=== PATIENT | male | born 1930 | race Hispanic/Latino ===

== ENCOUNTER 2017-03-09 00:31 | Emergency (ER) | payer MEDICARE, MEDICAID ==
--- NOTE | 2017-03-09 00:41 | C.PDOC ---
History Of Present Illness Pt found on his back on the floor at the custodial. Unknown time of fall. No obvious signs of trauma. Moves all extremities - HPI Time Seen by Provider: 03/09/17 00:41 Chief Complaint (Nursing): Trauma History Per: EMS History/Exam Limitations: no limitations Onset/Duration Of Symptoms: Hrs Location Of Injury: Posterior: Head Severity: None Pain Scale Rating Of: 0 Recent travel outside of the [place]: No Additional History Per: EMS, [facility] Past Medical History Reviewed: Historical Data, Nursing Documentation, Vital Signs Vital Signs: Last Vital Signs Temp 98.2 F 03/09/17 00:36 Pulse 96 H 03/09/17 00:36 Resp 20 03/09/17 00:36 BP 108/66 03/09/17 00:36 Pulse Ox 99 03/09/17 01:36 - Medical History PMH: Diverticulitis, HTN Denies: Alzheimer's Disease, Anemia, Anxiety, Arthritis, Asthma, Atrial Fibrillation, Bipolar Disorder, Bronchitis, CAD, Cardia Arrhythmia, CHF, COPD, Crohn's Disease, Dementia, Depression, Emphysema, Fractures, Gastritis, Gall Bladder Disease, HIV, Hypercholesterolemia, Hyperthyroidism, Hypothyroidism, Kidney Stones, Migraine, Mitral Valve Prolapse, Multiple Sclerosis, Osteoporosis , Pancreatitis, Paranoia, Parkinson's Disease, Peripheral Edema, Pneumonia, Post Traumatic Stress Disorder, Pulmonary Embolism, Chronic Kidney Disease, Rheumatoid Arthritis, Schizophrenia, Seizures, Sickle Cell Disease, Sexually Transmitted Disease, Sleep Apnea, TIA Surgical History: Denies: Appendectomy, CABG, Carotid Endarterectomy, Cholecystectomy, Coronary Stent, Pacemaker, Tonsillectomy - [facility] Procedures APPLICATION OF SPLINT (08/07/13) EXCISION OF TOE NAIL, EXTERNAL APPROACH (10/20/15) Family History: States: No Known Family Hx, Unknown Family Hx - Social History Hx Alcohol Use: No Hx Substance Use: No Review Of Systems Review Of Systems: ROS cannot be obtained secondary to pt's inabilty to answer questions. (hx of dementia, although he states that nothing hurts him) Physical Exam - Physical Exam Appears: Non-toxic, No Acute Distress Skin: Warm, Dry Head: Normacephalic, No Tenderness, No Swelling, No Abrasion Eye(s): bilateral: Normal Inspection Ear(s): Bilateral: Normal Oral Mucosa: Moist Neck: Trachea Midline, Supple Chest: Symmetrical Cardiovascular: Rhythm Regular Respiratory: No Rales, No Rhonchi, No Wheezing Gastrointestinal/Abdominal: Soft, No Tenderness, No Distention, No Guarding, No Rebound Back: No CVA Tenderness Extremity: No Tenderness, No Calf Tenderness Extremity: Bilateral: Atraumatic, Normal Color And Temperature, Normal ROM Pulses: Left Dorsalis Pedis: Normal, Right Dorsalis Pedis: Normal Neurological/Psych: Normal Speech Disoriented To: Place, Time Gait: Unable To Assess ED Course And Treatment O2 Sat by Pulse Oximetry: 99 Pulse Ox Interpretation: Normal Reevaluation Time: 02:17 Reassessment Condition: Improved Disposition Counseled Patient/Family Regarding: Studies Performed, Diagnosis, Need For Followup - Disposition Referrals: Carolann Reynolds MD [Staff Provider] - Disposition: HOME/ ROUTINE Disposition Time: 00:41 Condition: FAIR Instructions: Head Injury (ED) Forms: [facility] (Niuean) - Clinical Impression Clinical Impression: Minor head injury
--- NOTE | 2017-03-09 01:57 | CT ---
EXAM: CT Head Without Intravenous Contrast CLINICAL HISTORY: 86 years old, male; Pain; Headache; Patient HX: 01-07-16; Additional info: Fall TECHNIQUE: Axial computed tomography images of the head/brain without intravenous contrast. This CT exam was performed using one or more of the following dose reduction techniques: automated exposure control, adjustment of the mA and/or kV according to patient size, and/or use of iterative reconstruction technique. COMPARISON: No relevant prior studies available. FINDINGS: Brain: No acute intracranial hemorrhage. A large focus of decreased attenuation is identified within the left cerebral hemisphere, finding suggesting prior cerebral infarction, with ex vacuo enlargement of the posterior horn of the adjacent left lateral ventricle. Age-appropriate periventricular white matter disease. No edema. Ventricles: Otherwise age-appropriate ventriculomegaly. Bones: No acute displaced fracture. Sinuses: Unremarkable as visualized. No acute sinusitis. Mastoid air cells: Unremarkable as visualized. No mastoid effusion. IMPRESSION: No acute intracranial hemorrhage, or suspicious mass effect. Findings consistent with prior cerebral infarction, for which clinical correlation is needed.
[2017-03-09 04:32] VITALS: BP 128/70; PULSE 73; RESP 18; TEMP 97.4; O2SAT 100
== END 2017-03-09 04:21 | disposition home or self-care (01) ==
LOC: C.ER 00:31
DX: S09.90XA Unspecified injury of head, initial encounter (principal); W19.XXXA Unspecified fall, initial encounter; Y92.129 Unspecified place in nursing home as the place of occurrence of the external cause

== ENCOUNTER 2017-03-09 22:26 | Inpatient (IN) | payer MEDICARE, MEDICAID ==
[2017-03-09 23:14] LABS: BASO % 0.6 % (0.0-2.0); EOS # 0.1 K/uL (0.0-0.7); EOS % 1.4 % (0.0-4.0); HEMATOCRIT 34.9 % (35.0-51.0); LYMPH % 14.4 % (20.0-40.0); MEAN CELL VOLUME 81.4 fL (80.0-94.0); MEAN CORPUSCULAR HEMOGLOBIN 26.6 pg (27.0-31.0); MEAN CORPUSCULAR HGB CONC 32.7 g/dL (33.0-37.0); MEAN PLATELET VOLUME 10.6 fL (7.2-11.7); MONO # 0.6 K/uL (0.0-0.8); MONO % 8.9 % (0.0-10.0); RED CELL DISTRIBUTION WIDTH 15.9 % (11.5-14.5); WHITE BLOOD COUNT 6.7 K/uL (4.8-10.8)
[2017-03-09 23:22] LABS: POTASSIUM 4.6 mmol/L (3.6-5.2)
[2017-03-09 23:23] LABS: RBC URINE 26 /hpf (0-3); URINE BACTERIA MANY (<OCC); URINE BILIRUBIN NEGATIVE (NEGATIVE); URINE BLOOD 2+ (NEGATIVE); URINE COLOR Yellow (YELLOW); URINE GLUCOSE (UA) NORMAL (Normal); URINE KETONE NEGATIVE (NEGATIVE); URINE LEUKOCYTE ESTERASE 3+ Leu/uL (Negative); URINE PROTEIN 2+ mg/dL (NEGATIVE); URINE UROBILINOGEN NORMAL mg/dL (0.2-1.0); WBC CLUMPS MANY /hpf; WBC URINE 3931 /hpf (0-5)
[2017-03-09 23:25] LABS: ALB/GLOB RATIO 0.8 (1.0-2.1); BILIRUBIN,TOTAL 0.6 mg/dL (0.2-1.3); CALCIUM 9.8 mg/dl (8.6-10.4); TOTAL PROTEIN 7.6 g/dL (6.3-8.3)
--- NOTE | 2017-03-10 00:58 | C.PDOC ---
History Of Present Illness 86 year old male who was sent to the ER by alf for an elevated creatinine level. Patient was seen earlier today in the ER and discharged after having a fall. Denies physical complaints at this time. Chief Complaint (Nursing): Medical Clearance History Per: Patient History/Exam Limitations: no limitations Onset/Duration Of Symptoms: Hrs Current Symptoms Are (Timing): Still Present Recent travel outside of the [place]: No Past Medical History Reviewed: Historical Data, Nursing Documentation, Vital Signs Vital Signs: Last Vital Signs Temp 97 F L 03/10/17 06:08 Pulse 100 H 03/10/17 06:08 Resp 16 03/10/17 06:08 BP 123/68 03/10/17 06:08 Pulse Ox 96 03/10/17 06:51 - Medical History PMH: Diverticulitis, HTN Surgical History: No Surg Hx - [facility] Procedures APPLICATION OF SPLINT (08/07/13) EXCISION OF TOE NAIL, EXTERNAL APPROACH (10/20/15) Family History: States: Unknown Family Hx - Social History Hx Alcohol Use: No Hx Substance Use: No Review Of Systems Constitutional: Negative for: Fever, Chills Gastrointestinal: Negative for: Nausea, Vomiting, Diarrhea Physical Exam - Physical Exam Appears: Non-toxic, Other (Alert, Conscious) Skin: Normal Color, Warm, Dry Head: Atraumatic, Normacephalic Oral Mucosa: Dry Chest: Symmetrical, No Tenderness Cardiovascular: Rhythm Regular (Tachycardic), No Murmur Respiratory: Normal Breath Sounds, No Rales, No Rhonchi, No Wheezing Gastrointestinal/Abdominal: Soft, No Tenderness Neurological/Psych: Oriented x3, Normal Speech, Normal Cognition, Other (No focal deficits) ED Course And Treatment - Laboratory Results Result Diagrams: 03/09/17 23:11 03/09/17 23:11 O2 Sat by Pulse Oximetry: 96 (Room air) Pulse Ox Interpretation: Normal Progress Note: EKG, CXR, and urine culture ordered. IV fluids administered. Disposition Discussed With : Carolann Reynolds Doctor Will See Patient In The: Hospital Counseled Patient/Family Regarding: Diagnosis - Disposition Disposition: HOSPITALIZED Disposition Time: 02:25 Condition: STABLE - POA Present On Arrival: None - Clinical Impression Clinical Impression: Renal insufficiency, Urinary tract infection - Scribe Statement The provider has reviewed the documentation as recorded by the Scribsuzette Villagran All medical record entries made by the Khanh were at my direction and personally dictated by me. I have reviewed the chart and agree that the record accurately reflects my personal performance of the history, physical exam, medical decision making, and the department course for this patient. I have also personally directed, reviewed, and agree with the discharge instructions and disposition.
[2017-03-10] MEDS ORDERED: Ciprofloxacin 400mg/200ml D5W 400 MG/200 ML BAG IVPB STA (01:50)
[2017-03-10] MEDS ORDERED: Alum-Mag Hydrox-Simethicone Susp (30 mL) PO PRN (02:39)
[2017-03-10] MEDS ORDERED: Ciprofloxacin 400mg/200ml D5W 400 MG/200 ML BAG IVPB ONE (05:45)
--- NOTE | 2017-03-10 08:16 | RAD ---
HISTORY: dehydration COMPARISON: No prior. FINDINGS: LUNGS: No active pulmonary disease. Shallow lung volumes PLEURA: No significant pleural effusion identified, no pneumothorax apparent. CARDIOVASCULAR: Probable top-normal heart size given lung volume. Aortic knob atherosclerotic vascular calcification OSSEOUS STRUCTURES: No significant abnormalities. VISUALIZED UPPER ABDOMEN: Normal. OTHER FINDINGS: None. IMPRESSION: No active disease.
[2017-03-10] MEDS: (Novolin R) Insulin Human Regular 100 units/ml vial SC SCH ×4 (08:30→22:07)
[2017-03-10] MEDS ORDERED: COLCHICINE 0.6 MG PO SCH (10:00)
[2017-03-10] MEDS ORDERED: Ergocalciferol 50,000 Intl Units Cap PO SCH (10:15)
[2017-03-10] MEDS: Pantoprazole 40 mg EC Tab PO SCH (10:34)
[2017-03-10] MEDS: Sodium Chloride 0.9% 1,000 ML IV SCH ×3 (10:37→21:39)
[2017-03-10] MEDS: Lidocaine 5% Patch TD SCH (10:40)
[2017-03-10 11:35] LABS: BASO % 0.6 % (0.0-2.0); EOS % 0.7 % (0.0-4.0); HEMATOCRIT 33.8 % (35.0-51.0); LYMPH # 0.9 K/uL (1.0-4.3); LYMPH % 13.2 % (20.0-40.0); MEAN CELL VOLUME 81.6 fL (80.0-94.0); MEAN CORPUSCULAR HEMOGLOBIN 26.6 pg (27.0-31.0); MEAN CORPUSCULAR HGB CONC 32.6 g/dL (33.0-37.0); MEAN PLATELET VOLUME 10.8 fL (7.2-11.7); MONO # 0.5 K/uL (0.0-0.8); MONO % 7.3 % (0.0-10.0); NRBC % 0.1 % (0.0-2.0); RED CELL DISTRIBUTION WIDTH 15.8 % (11.5-14.5); WHITE BLOOD COUNT 6.6 K/uL (4.8-10.8)
[2017-03-10 11:50] LABS: ALB/GLOB RATIO 0.8 (1.0-2.1); BILIRUBIN,TOTAL 0.7 mg/dL (0.2-1.3); CALCIUM 9.8 mg/dl (8.6-10.4); POTASSIUM 4.6 mmol/L (3.6-5.2); TOTAL PROTEIN 7.6 g/dL (6.3-8.3)
[2017-03-10] MEDS: cefTRIAXone IV 1 gm in Dextros 50 ML IVPB SCH (13:31)
--- NOTE | 2017-03-10 21:08 | CP.PCM.HP ---
History of Present Illness - History of Present Illness History of Present Illness: An 86 yr old male with hx of CVA hemaorrhagic, wheel chair , bed bounnd, HTN , DM, CRF, GOUT ,Dementia , NH resident brought to ER after he had a trivial Fall and apperas to be confused at [place]. [place] ER labd found to be elevated CR[Base line is 1.7] , no odious bleeding\ trauma noted. CT head - WNL. UA- founfd to be positive for LE, wears diapers. pateint apperas to be less talkative, answers to questions at his base line for now. Present on Admission - Present on Admission Any Indicators Present on Admission: No Review of Systems - Hematologic/Lymphatic Additional comments: - Constitutional Constitutional: Snoring. absent: Anorexia, Chills, Frequent Falls, Headache, Night Sweats - EENT Eyes: absent: Photophobia Nose/Mouth/Throat: absent: Nasal Discharge, Post Nasal Drip, Hoarsness, Sore Throat - Cardiovascular Cardiovascular: absent: Chest Pain, Chest Pain at Rest, Dyspnea, Leg Edema, Palpitations, Paroxysmal Nocturnal Dyspnea - Respiratory Respiratory: absent: Cough, Dyspnea, Wheezing, Chest Congestion - Gastrointestinal Gastrointestinal: absent: Dyspepsia, Heartburn, Nausea, Vomiting - Genitourinary Genitourinary: no hx UTI. absent: Hematuria - Musculoskeletal Musculoskeletal: Arthralgias, Back Pain, Deformity, Stiffness - Neurological Neurological: absent: Focal Weakness, Headaches - Psychiatric Psychiatric: absent: Hallucinations - Endocrine Endocrine: Polyphagia. absent: Fatigue - Hematologic/Lymphatic Hematologic: absent: Lymphadenopathy Past Patient History - Past Medical History & Family History Past Medical History?: Yes - Past Social History Smoking Status: Former Smoker - CARDIAC Hx Cardiac Disorders: Yes Hx Hypertension: Yes - PULMONARY Hx Chronic Obstructive Pulmonary Disease (COPD): No - NEUROLOGICAL HX Cerebrovascular Accident: Yes - HEENT Hx HEENT Problems: No Hx Blind: No Hx Cataracts: No Hx Deafness: No Hx Difficulty Chewing: No Hx Epistaxis: No Hx Glaucoma: No Hx Macular Degeneration: No - RENAL Hx Chronic Kidney Disease: No Hx Kidney Stones: No - ENDOCRINE/METABOLIC Hx Hypothyroidism: No - HEMATOLOGICAL/ONCOLOGICAL Hx Blood Disorders: No Hx Anemia: No Hx Human Immunodeficiency Virus (HIV): No Hx Sickle Cell Disease: No - INTEGUMENTARY Hx Dermatological Problems: No Hx Basil Cell: No Hx Hernández: No Hx Cellulitis: No Hx Eczema: No Hx Melanoma: No Hx Psoriasis: No Hx Squamous Cell: No - MUSCULOSKELETAL/RHEUMATOLOGICAL Hx Arthritis: Yes (Gout) Hx Rheumatoid Arthritis: No - GASTROINTESTINAL Hx Gastrointestinal Disorders: Yes Hx Diverticulitis: Yes - GENITOURINARY/GYNECOLOGICAL Hx Genitourinary Disorders: No Hx Sexually Transmitted Disorders: No - PSYCHIATRIC Hx Psychophysiologic Disorder: No Hx Substance Use: No - SURGICAL HISTORY Hx Surgeries: Yes Hx Appendectomy: No Hx Carotid Endarterectomy: No Hx Cholecystectomy: No Hx Coronary Artery Bypass Graft: No Hx Coronary Stent: No Hx Tonsillectomy: No - ANESTHESIA Hx Anesthesia: Yes Hx Anesthesia Reactions: No Hx Malignant Hyperthermia: No Meds Home Medications: Home Medication List Medication Instructions Recorded Confirmed Type Acetaminophen [Tylenol 325mg tab] 650 mg PO Q4H PRN tab 03/16/17 Rx Allopurinol [Zyloprim] 100 mg PO DAILY tab 03/16/17 Rx Aluminum Hydroxide/Magnesium 30 ml PO Q4H PRN 03/16/17 Rx [Maalox Plus 30 ml] Ergocalciferol [Drisdol 50,000 1 cap PO QWK cap 03/16/17 Rx Intl Units Cap] Rosuvastatin Calcium [Crestor] 5 mg PO HS tab 03/16/17 Rx Tamsulosin [Flomax] 0.4 mg PO HS cap 03/16/17 Rx Allergies/Adverse Reactions: Allergies Allergy/AdvReac Type Severity Reaction Status Date / Time No Known Allergies Allergy Verified 03/09/17 22:36 Physical Exam - Additional Findings Additional findings: Head Exam Head Exam: ATRAUMATIC, NORMAL INSPECTION, NORMOCEPHALIC - Eye Exam Eye Exam: EOMI, PERRL - ENT Exam ENT Exam: Mucous Membranes Dry - Respiratory Exam Respiratory Exam: Clear to Auscultation Bilateral, Rales (b\l LL), NORMAL BREATHING PATTERN. absent: Accessory Muscle Use Additional comments: B\Lb\l LL ll - Cardiovascular Exam Cardiovascular Exam: Tachycardia, REGULAR RHYTHM, +S1, +S2, Systolic Murmur. absent: Gallop - GI/Abdominal Exam GI & Abdominal Exam: Normal Bowel Sounds, Soft. absent: Distended, Hernia, Mass , Tenderness - Neurological Exam Neurological exam: Alert, Altered, CN II-XII Intact Additional comments: wheel chair bound AAO-1-2 at base line - Psychiatric Exam Psychiatric exam: Normal Affect, Normal Mood - Skin Skin Exam: Dry, Intact, Petechiae - Additional Findings b\l foot drop f Results - Vital Signs Recent Vital Signs: Last Vital Signs Temp 97.2 F L 03/10/17 16:01 Pulse 110 H 03/10/17 16:01 Resp 20 03/10/17 16:01 BP 130/80 03/10/17 16:01 Pulse Ox 96 03/10/17 16:01 - Labs Result Diagrams: 03/14/17 11:07 03/16/17 08:01 Labs: Laboratory Results - last 24 hr 03/10/17 03/10/17 03/10/17 11:27 11:27 11:27 WBC 6.6 RBC 4.14 L Hgb 11.0 L Hct 33.8 L MCV 81.6 MCH 26.6 L MCHC 32.6 L RDW 15.8 H Plt Count 202 MPV 10.8 Neut % (Auto) 78.2 H Lymph % (Auto) 13.2 L [place] % (Auto) 7.3 Eos % (Auto) 0.7 Baso % (Auto) 0.6 Neut # 5.1 Lymph # 0.9 L [place] # 0.5 Eos # 0.0 Baso # 0.0 Sodium 143 Potassium 4.6 Chloride 105 Carbon Dioxide 22 Anion Gap 21 H BUN 62 H Creatinine 2.9 H Est GFR ( Amer) 25 Est GFR (Non-Af Amer) 21 POC Glucose (mg/dL) Random Glucose 149 H Hemoglobin A1c 5.8 Calcium 9.8 Total Bilirubin 0.7 AST 13 L ALT 22 Alkaline Phosphatase 89 Total Protein 7.6 Albumin 3.4 L Globulin 4.2 H Albumin/Globulin Ratio 0.8 L 03/10/17 03/10/17 11:54 17:05 WBC RBC Hgb Hct MCV MCH MCHC RDW Plt Count MPV Neut % (Auto) Lymph % (Auto) [place] % (Auto) Eos % (Auto) Baso % (Auto) Neut # Lymph # [place] # Eos # Baso # Sodium Potassium Chloride Carbon Dioxide Anion Gap BUN Creatinine Est GFR ( Amer) Est GFR (Non-Af Amer) POC Glucose (mg/dL) 161 H 87 Random Glucose Hemoglobin A1c Calcium Total Bilirubin AST ALT Alkaline Phosphatase Total Protein Albumin Globulin Albumin/Globulin Ratio - EKG Data EKG Interpreted by: Myself EKG shows normal: Sinus rhythm Rate: Tachycardia - Imaging and Cardiology Chest x-ray Status: Report reviewed by me Assessment & Plan (1) ARF (acute renal failure) Status: Acute Comment: ivf, likly dehydration. prerenal cause. mnoitor cr. i\o. refusing benitez (2) UTI (urinary tract infection) Status: Acute Comment: iv abx. urine c\s (3) HTN (hypertension) Status: Chronic Comment: moniot BP. stable for now. resume meds (4) Type 2 diabetes mellitus without complications Status: Chronic Comment: accuhecks ACHS. SLIDING SCALE. HBA1C. resume meds (5) Gout Status: Chronic Comment: stable for now Decision To Admit - Pt Status Changed To: Hospital Disposition Of: Inpatient - Admit Certification Admit to Inpatient:: After my assessment, the patient will require hospitalization for at least two midnights. This is because of the severity of symptoms shown, intensity of services needed, and/or the medical risk in this patient being treated as an outpatient. - InPatient: Physician Admission Certification:: as above - . Bed Request Type: Telemetry Admitting Physician: Carolann Reynolds
[2017-03-11] MEDS: Sodium Chloride 0.9% 1,000 ML IV SCH ×5 (03:13→22:55)
[2017-03-11] MEDS: (Novolin R) Insulin Human Regular 100 units/ml vial SC SCH ×4 (07:30→21:47)
[2017-03-11] MEDS: Pantoprazole 40 mg EC Tab PO SCH (09:48)
[2017-03-11] MEDS: Lidocaine 5% Patch TD SCH (09:50)
[2017-03-11 11:02] LABS: BASO % 0.6 % (0.0-2.0); EOS % 0.5 % (0.0-4.0); LYMPH # 0.5 K/uL (1.0-4.3); LYMPH % 9.2 % (20.0-40.0); MEAN CELL VOLUME 80.9 fL (80.0-94.0); MEAN CORPUSCULAR HEMOGLOBIN 26.5 pg (27.0-31.0); MEAN CORPUSCULAR HGB CONC 32.7 g/dL (33.0-37.0); MEAN PLATELET VOLUME 10.4 fL (7.2-11.7); MONO # 0.5 K/uL (0.0-0.8); MONO % 8.9 % (0.0-10.0); PLATELET COUNT 180 K/uL (130-400); RED CELL DISTRIBUTION WIDTH 15.4 % (11.5-14.5); WHITE BLOOD COUNT 5.7 K/uL (4.8-10.8)
[2017-03-11 11:11] LABS: CALCIUM 8.9 mg/dl (8.6-10.4)
[2017-03-11 11:31] LABS: NEUTROPHIL 77 % (50-75); TOTAL CELLS COUNTED 100
[2017-03-11] MEDS: cefTRIAXone IV 1 gm in Dextros 50 ML IVPB SCH (12:38)
--- NOTE | 2017-03-11 22:03 | CP.PCM.PN ---
Subjective - Date & Time of Evaluation Date of Evaluation: 03/11/17 Time of Evaluation: 09:00 - Subjective Subjective: urine c\s positive for gm positive cocci . looks little better,denies any active complaints, still BUN-high, cr-2.6., hba1c -5.8 on januvia as per staff - wet diapers , no sig urine out put, patient looks comfortable on ivf Objective - Vital Signs/Intake and Output Vital Signs (last 24 hours): Temp Pulse Resp BP Pulse Ox 99.4 F 94 H 20 125/72 100 03/11/17 15:49 03/11/17 15:49 03/11/17 15:49 03/11/17 15:49 03/11/17 15:49 Intake and Output: 03/11/17 03/12/17 18:59 06:59 Intake Total 1710 Balance 1710 - Medications Medications: Current Medications Acetaminophen (Tylenol 325mg Tab) 650 mg PO Q4H PRN PRN Reason: Pain, Mild (1-3) Al Hydrox/Mg Hydrox/Simethicone (Maalox Plus 30 Ml) 30 ml PO Q4H PRN PRN Reason: Indigestion / Heartburn Allopurinol (Zyloprim) 100 mg PO DAILY [facility] Last Admin: 03/11/17 09:48 Dose: 100 mg Colchicine (Colocrys) 0.3 mg PO DAILY PRN PRN Reason: GOUT PAIN Ergocalciferol (Drisdol 50,000 Intl Units Cap) 1 cap PO QWK [facility] Last Admin: 03/10/17 10:34 Dose: 1 cap Heparin Sodium (Porcine) (Heparin) 5,000 units SC Q8 [facility] Last Admin: 03/11/17 21:27 Dose: Not Given Sodium Chloride (Sodium Chloride 0.9%) 1,000 mls @ 100 mls/hr IV .Q10H [facility] Last Admin: 03/11/17 19:25 Dose: 100 mls/hr Ceftriaxone Sodium (Rocephin Iv 1 Gm Duplex) 50 mls @ 100 mls/hr IVPB Q24H [facility] Last Admin: 03/11/17 12:38 Dose: 100 mls/hr Insulin Human Regular (Novolin R) 0 unit SC ACHS [facility] PRN Reason: Protocol Last Admin: 03/11/17 21:47 Dose: Not Given Lidocaine (Lidoderm) 1 ea TD DAILY [facility] Last Admin: 03/11/17 09:50 Dose: Not Given Pantoprazole Sodium (Protonix Ec Tab) 40 mg PO DAILY [facility] Last Admin: 03/11/17 09:48 Dose: 40 mg Rosuvastatin Calcium (Crestor) 5 mg PO HS [facility] Last Admin: 03/11/17 21:26 Dose: 5 mg Sitagliptin Phosphate (Januvia) 25 mg PO DAILY [facility] Last Admin: 03/11/17 09:48 Dose: 25 mg Tamsulosin HCl (Flomax) 0.4 mg PO HS [facility] Last Admin: 03/11/17 21:26 Dose: 0.4 mg - Labs Labs: 03/11/17 10:50 03/11/17 10:50 - Additional Findings Additional findings: Head Exam Head Exam: ATRAUMATIC, NORMAL INSPECTION, NORMOCEPHALIC - Eye Exam Eye Exam: EOMI, PERRL - ENT Exam ENT Exam: Mucous Membranes Dry - Respiratory Exam Respiratory Exam: Clear to Auscultation Bilateral, Rales (b\l LL), NORMAL BREATHING PATTERN. absent: Accessory Muscle Use Additional comments: B\Lb\l LL ll - Cardiovascular Exam Cardiovascular Exam: Tachycardia, REGULAR RHYTHM, +S1, +S2, Systolic Murmur. absent: Gallop - GI/Abdominal Exam GI & Abdominal Exam: Normal Bowel Sounds, Soft. absent: Distended, Hernia, Mass , Tenderness - Neurological Exam Neurological exam: Alert, Altered, CN II-XII Intact Additional comments: wheel chair bound AAO-1-2 at base line - Psychiatric Exam Psychiatric exam: Normal Affect, Normal Mood - Skin Skin Exam: Dry, Intact, Petechiae - Additional Findings Additional findings: Assessment and Plan (1) ARF (acute renal failure) Status: Acute (2) Altered mental status Status: Acute (3) Dehydration Status: Acute (4) UTI (urinary tract infection) Status: Acute - Assessment and Plan (Free Text) Plan: I\O chart benitez ivf awaiting for c\s stable vitals will get abdominal u\s
[2017-03-12] MEDS: Sodium Chloride 0.9% 1,000 ML IV SCH ×2 (06:16→17:31)
[2017-03-12] MEDS: (Novolin R) Insulin Human Regular 100 units/ml vial SC SCH ×4 (07:06→21:29)
[2017-03-12 08:08] VITALS: RESP 20
[2017-03-12] MEDS: Pantoprazole 40 mg EC Tab PO SCH (09:18)
[2017-03-12] MEDS: Lidocaine 5% Patch TD SCH (09:19)
[2017-03-12] MEDS: cefTRIAXone IV 1 gm in Dextros 50 ML IVPB SCH (13:24)
[2017-03-13] MEDS: Sodium Chloride 0.9% 1,000 ML IV SCH ×2 (04:00→13:40)
[2017-03-13] MEDS: (Novolin R) Insulin Human Regular 100 units/ml vial SC SCH ×4 (08:00→21:46)
[2017-03-13] MEDS: Pantoprazole 40 mg EC Tab PO SCH (11:15)
[2017-03-13] MEDS: Lidocaine 5% Patch TD SCH (11:16)
[2017-03-13] MEDS: cefTRIAXone IV 1 gm in Dextros 50 ML IVPB SCH (13:38)
--- NOTE | 2017-03-13 14:23 | CP.PCM.CON ---
History of Present Illness - History of Present Illness History of Present Illness: 86 year old male who was sent to the ER by halfway for an elevated creatinine level. Patient was seen earlier today in the ER and discharged after having a fall. Denies physical complaints at this time.\ referred for id eval of uti - +MRSA, Morganella in urine - Medical History PMH: Diverticulitis, HTN Surgical History: No Surg Hx - [facility] Procedures APPLICATION OF SPLINT (08/07/13) EXCISION OF TOE NAIL, EXTERNAL APPROACH (10/20/15) Review of Systems - Review of Systems Systems not reviewed;Unavailable: Altered Mental Status - Constitutional Constitutional: As Per HPI - EENT Eyes: absent: As Per HPI, Blind Spots, Blurred Vision, Change in Vision, Decreased Night Vision, Diplopia, Discharge, Dry Eye, Exophthalmos, Floaters, Irritation, Itchy Eyes, Loss of Peripheral Vision, Pain, Photophobia, Requires Corrective Lenses, Sees Flashes, Spots in Vision, Tunnel Vision, Other Visual Disturbances, Loss of Vision, Other Ears: absent: As Per HPI, Decreased Hearing, Ear Discharge, Ear Pain, Tinnitus, Abnormal Hearing, Disequilibrium, Dizziness, Other Nose/Mouth/Throat: absent: As Per HPI, Epistaxis, Nasal Congestion, Nasal Discharge, Nasal Obstruction, Nasal Trauma, Nose Pain, Post Nasal Drip, Sinus Pain, Sinus Pressure, Bleeding Gums, Change in Voice, Dental Pain, Dry Mouth, Dysphagia, Halitosis, Hoarsness, Lip Swelling, Mouth Lesions, Mouth Pain, Odynophagia, Sore Throat, Throat Swelling, Tongue Swelling, Facial Pain, Neck Pain, Neck Mass, Other - Gastrointestinal Gastrointestinal: absent: As Per HPI, Abdominal Pain, Belching, Bloating, Change in Bowel Habits, Change in Stool Character, Coffee Ground Emesis, Constipation, Cramping, Diarrhea, Dyspepsia, Dysphagia, Early Satiety, Excessive Flatus, Fecal Incontinence, Heartburn, Hematemesis, Hematochezia, Loose Stools, Melena, Nausea, Odynophagia, Temesmus, Vomiting, Other - Genitourinary Genitourinary: absent: As Per HPI, Change in Urinary Stream, Difficulty Urinating, Dysuria, Flank Pain, Hematuria, Pyuria, Nocturia, Urinary Incontinence, Urinary Frequency, Urinary Hesitance, Urinary Urgency, Voiding Freq/Small Amts, Freq UTI, Hx Renal/Bladder Calculi, Hx /Renal Surgery, Bladder Distension, Other - Musculoskeletal Musculoskeletal: absent: As Per HPI, Abnormal Gait, Arthralgias, Atrophy, Back Pain, Deformity, Joint Swelling, Limited Range of Motion, Loss of Height, Muscle Cramps, Muscle Weakness, Myalgias, Neck Pain, Numbness, Radiating Pain into Limb, Stiffness, Tingling, Other - Integumentary Integumentary: absent: As Per HPI, Acne, Alopecia, Bleeding Lesions, Change in Hair, Change in Nails, Change in Pigmentation, Changing Lesions, Dry Skin, Erythema, Furuncle, Hirsutism, Lesions, New Lesions, Non-Healing Lesions, Photosensitivity, Pruritus, Rash, Skin Pain, Skin Ulcer, Sores, Striae, Swelling , Unusual Bruising, Wounds, Jaundice, Other - Neurological Neurological: absent: As Per HPI, Abnormal Gait, Abnormal Hearing, Abnormal Movements, Abnormal Speech, Behavioral Changes, Burning Sensations, Confusion, Convulsions, Disequilibrium, Dizziness, Numbness, Focal Weakness, Frequent Falls , Headaches, Lack of Coordination, Loss of Vision, Memory Loss, Paresthesias, Radicular Pain, Restless Legs, Sensory Deficit, Syncope, Tingling, Tremor, Vertigo, Weakness, Other Visual Disturbances, Other - Psychiatric Psychiatric: absent: As Per HPI, Abnormal Sleep Pattern, Anhedonia, Anxiety, Auditory Hallucinations, Behavioral Changes, Change in Appetite, Change in Libido, Confusion, Depression, Difficulty Concentrating, Hallucinations, Homicidal Ideation, Hopelessness, Irritability, Memory Loss, Mood Swings, Panic Attacks, Paranoia, Suicidal Ideation, Visual Hallucinations, Tactile Hallucinations, Other - Endocrine Endocrine: absent: As Per HPI, Change in Body Appearance, Change in Libido, Cold Intolorance, Deepening of Voice, Excessive Sweating, Fatigue, Flushing, Heat Intolorance, Increase in Ring/Shoe/Hat Size, Palpitations, Polydipsia, Polyphagia, Polyuria, Other - Hematologic/Lymphatic Hematologic: absent: As Per HPI, Easy Bleeding, Easy Bruising, Lymphadenopathy, Other Past Patient History - Past Medical History & Family History Past Medical History?: Yes - Past Social History Smoking Status: Former Smoker - CARDIAC Hx Cardiac Disorders: Yes Hx Hypertension: Yes - PULMONARY Hx Chronic Obstructive Pulmonary Disease (COPD): No - NEUROLOGICAL HX Cerebrovascular Accident: Yes - HEENT Hx HEENT Problems: No Hx Blind: No Hx Cataracts: No Hx Deafness: No Hx Difficulty Chewing: No Hx Epistaxis: No Hx Glaucoma: No Hx Macular Degeneration: No - RENAL Hx Chronic Kidney Disease: No Hx Kidney Stones: No - ENDOCRINE/METABOLIC Hx Hypothyroidism: No - HEMATOLOGICAL/ONCOLOGICAL Hx Blood Disorders: No Hx Anemia: No Hx Human Immunodeficiency Virus (HIV): No Hx Sickle Cell Disease: No - INTEGUMENTARY Hx Dermatological Problems: No Hx Basil Cell: No Hx Hernández: No Hx Cellulitis: No Hx Eczema: No Hx Melanoma: No Hx Psoriasis: No Hx Squamous Cell: No - MUSCULOSKELETAL/RHEUMATOLOGICAL Hx Arthritis: Yes (Gout) Hx Rheumatoid Arthritis: No - GASTROINTESTINAL Hx Gastrointestinal Disorders: Yes Hx Diverticulitis: Yes - GENITOURINARY/GYNECOLOGICAL Hx Genitourinary Disorders: No Hx Sexually Transmitted Disorders: No - PSYCHIATRIC Hx Psychophysiologic Disorder: No Hx Substance Use: No - SURGICAL HISTORY Hx Surgeries: Yes Hx Appendectomy: No Hx Carotid Endarterectomy: No Hx Cholecystectomy: No Hx Coronary Artery Bypass Graft: No Hx Coronary Stent: No Hx Tonsillectomy: No - ANESTHESIA Hx Anesthesia: Yes Hx Anesthesia Reactions: No Hx Malignant Hyperthermia: No Meds Allergies/Adverse Reactions: Allergies Allergy/AdvReac Type Severity Reaction Status Date / Time No Known Allergies Allergy Verified 03/09/17 22:36 - Medications Medications: Current Medications Acetaminophen (Tylenol 325mg Tab) 650 mg PO Q4H PRN PRN Reason: Pain, Mild (1-3) Al Hydrox/Mg Hydrox/Simethicone (Maalox Plus 30 Ml) 30 ml PO Q4H PRN PRN Reason: Indigestion / Heartburn Allopurinol (Zyloprim) 100 mg PO DAILY [facility] Last Admin: 03/13/17 11:15 Dose: 100 mg Colchicine (Colocrys) 0.3 mg PO DAILY PRN PRN Reason: GOUT PAIN Ergocalciferol (Drisdol 50,000 Intl Units Cap) 1 cap PO QWK [facility] Last Admin: 03/10/17 10:34 Dose: 1 cap Ceftriaxone Sodium (Rocephin Iv 1 Gm Duplex) 50 mls @ 100 mls/hr IVPB Q24H [facility] Last Admin: 03/13/17 13:38 Dose: 100 mls/hr Sodium Chloride (Sodium Chloride 0.9%) 1,000 mls @ 100 mls/hr IV .Q10H [facility] Last Admin: 03/13/17 13:40 Dose: 100 mls/hr Vancomycin HCl 1 gm/ Sodium (Chloride) 250 mls @ 166.7 mls/hr IVPB Q24H [facility] Last Admin: 03/12/17 16:41 Dose: 166.7 mls/hr Insulin Human Regular (Novolin R) 0 unit SC ACHS [facility] PRN Reason: Protocol Last Admin: 03/13/17 13:09 Dose: Not Given Lidocaine (Lidoderm) 1 ea TD DAILY [facility] Last Admin: 03/13/17 11:16 Dose: 1 ea Pantoprazole Sodium (Protonix Ec Tab) 40 mg PO DAILY [facility] Last Admin: 03/13/17 11:15 Dose: 40 mg Rosuvastatin Calcium (Crestor) 5 mg PO HS [facility] Last Admin: 03/12/17 22:03 Dose: Not Given Tamsulosin HCl (Flomax) 0.4 mg PO HS [facility] Last Admin: 03/12/17 22:03 Dose: Not Given Physical Exam - Constitutional Appears: Non-toxic, Cachectic, Chronically Ill - Head Exam Head Exam: NORMOCEPHALIC - Eye Exam Eye Exam: Normal appearance, PERRL. absent: Scleral icterus - ENT Exam ENT Exam: Mucous Membranes Dry, Normal External Ear Exam, Normal Oropharynx - Neck Exam Neck exam: Negative for: Lymphadenopathy, Thyromegaly - Respiratory Exam Respiratory Exam: Decreased Breath Sounds, Rhonchi - Cardiovascular Exam Cardiovascular Exam: REGULAR RHYTHM - GI/Abdominal Exam GI & Abdominal Exam: Diminished Bowel Sounds, Soft. absent: Tenderness - Rectal Exam Rectal Exam: Deferred - Exam Exam: NORMAL INSPECTION - Extremities Exam Extremities exam: Negative for: calf tenderness, pedal edema - Back Exam Back exam: absent: CVA tenderness (L), CVA tenderness (R) - Neurological Exam Neurological exam: Alert, CN II-XII Intact, Oriented x3, Reflexes Normal - Psychiatric Exam Psychiatric exam: Normal Mood - Skin Skin Exam: Dry, Intact Results - Vital Signs Recent Vital Signs: Last Vital Signs Temp 98 F 03/13/17 08:42 Pulse 81 03/13/17 08:42 Resp 20 03/13/17 08:42 BP 123/56 L 03/13/17 08:42 Pulse Ox 96 03/13/17 08:42 - Labs Result Diagrams: 03/11/17 10:50 03/11/17 10:50 Labs: Laboratory Results - last 24 hr 03/13/17 03/13/17 08:37 11:21 POC Glucose (mg/dL) 93 105 Assessment & Plan (1) Renal insufficiency Status: Acute (2) UTI (urinary tract infection) Status: Acute (3) ARF (acute renal failure) Status: Acute (4) Acute pain of lower extremity Status: Acute (5) Altered mental status Status: Acute (6) Elevated PSA Status: Acute - Assessment and Plan (Free Text) Assessment: cont iv rx check psa consider eval
--- NOTE | 2017-03-13 21:38 | CP.PCM.PN ---
Subjective - Date & Time of Evaluation Date of Evaluation: 03/12/17 Time of Evaluation: 14:00 - Subjective Subjective: urine grew MRSA, stable vitals. no new labs refused benitez family at bed side Objective - Vital Signs/Intake and Output Vital Signs (last 24 hours): Temp Pulse Resp BP Pulse Ox 98.7 F 79 20 137/83 97 03/13/17 16:00 03/13/17 16:00 03/13/17 16:00 03/13/17 16:00 03/13/17 16:00 Intake and Output: 03/13/17 03/14/17 18:59 06:59 Intake Total 1300 Balance 1300 - Medications Medications: Current Medications Acetaminophen (Tylenol 325mg Tab) 650 mg PO Q4H PRN PRN Reason: Pain, Mild (1-3) Al Hydrox/Mg Hydrox/Simethicone (Maalox Plus 30 Ml) 30 ml PO Q4H PRN PRN Reason: Indigestion / Heartburn Allopurinol (Zyloprim) 100 mg PO DAILY [facility] Last Admin: 03/13/17 11:15 Dose: 100 mg Colchicine (Colocrys) 0.3 mg PO DAILY PRN PRN Reason: GOUT PAIN Ergocalciferol (Drisdol 50,000 Intl Units Cap) 1 cap PO QWK [facility] Last Admin: 03/10/17 10:34 Dose: 1 cap Ceftriaxone Sodium (Rocephin Iv 1 Gm Duplex) 50 mls @ 100 mls/hr IVPB Q24H [facility] Last Admin: 03/13/17 13:38 Dose: 100 mls/hr Sodium Chloride (Sodium Chloride 0.9%) 1,000 mls @ 100 mls/hr IV .Q10H [facility] Last Admin: 03/13/17 13:40 Dose: 100 mls/hr Vancomycin HCl 1 gm/ Sodium (Chloride) 250 mls @ 166.7 mls/hr IVPB Q24H [facility] Last Admin: 03/13/17 16:32 Dose: 166.7 mls/hr Insulin Human Regular (Novolin R) 0 unit SC ACHS [facility] PRN Reason: Protocol Last Admin: 03/13/17 15:20 Dose: Not Given Lidocaine (Lidoderm) 1 ea TD DAILY [facility] Last Admin: 03/13/17 11:16 Dose: 1 ea Pantoprazole Sodium (Protonix Ec Tab) 40 mg PO DAILY [facility] Last Admin: 03/13/17 11:15 Dose: 40 mg Rosuvastatin Calcium (Crestor) 5 mg PO HS [facility] Last Admin: 03/12/17 22:03 Dose: Not Given Tamsulosin HCl (Flomax) 0.4 mg PO HS [facility] Last Admin: 03/12/17 22:03 Dose: Not Given - Labs Labs: 03/11/17 10:50 03/11/17 10:50 - Additional Findings Additional findings: Head Exam Head Exam: ATRAUMATIC, NORMAL INSPECTION, NORMOCEPHALIC - Eye Exam Eye Exam: EOMI, PERRL - ENT Exam ENT Exam: Mucous Membranes Dry - Respiratory Exam Respiratory Exam: Clear to Auscultation Bilateral, Rales (b\l LL), NORMAL BREATHING PATTERN. absent: Accessory Muscle Use Additional comments: B\L LL - Cardiovascular Exam Cardiovascular Exam: Tachycardia, REGULAR RHYTHM, +S1, +S2, Systolic Murmur. absent: Gallop - GI/Abdominal Exam GI & Abdominal Exam: Normal Bowel Sounds, Soft. absent: Distended, Hernia, Mass , Tenderness - Neurological Exam Neurological exam: Alert, Altered, CN II-XII Intact Additional comments: wheel chair bound AAO-1-2 at base line - Psychiatric Exam Psychiatric exam: Normal Affect, Normal Mood - Skin Skin Exam: Dry, Intact, Petechiae - Assessment and Plan (1) UTI (urinary tract infection) Status: Acute (2) ARF (acute renal failure) Status: Acute (3) HTN (hypertension) Status: Chronic (4) Type 2 diabetes mellitus without complications Status: Chronic - Assessment and Plan (Free Text) Plan: labs u\s abdomen ID consult continue IVF monitor for wet diapers contact isolation
--- NOTE | 2017-03-13 21:42 | CP.PCM.PN ---
Subjective - Date & Time of Evaluation Date of Evaluation: 03/13/17 Time of Evaluation: 08:00 - Subjective Subjective: abdominal u\s- bladder distention with urine, unable to void, b\l hydronephrosis with right ? kidney starnding on vancomycin ivf ID on board sleeping mostly little combative sensitive when touch abdomen, shouting Objective - Vital Signs/Intake and Output Vital Signs (last 24 hours): Temp Pulse Resp BP Pulse Ox 98.7 F 79 20 137/83 97 03/13/17 16:00 03/13/17 16:00 03/13/17 16:00 03/13/17 16:00 03/13/17 16:00 Intake and Output: 03/13/17 03/14/17 18:59 06:59 Intake Total 1300 Balance 1300 - Medications Medications: Current Medications Acetaminophen (Tylenol 325mg Tab) 650 mg PO Q4H PRN PRN Reason: Pain, Mild (1-3) Al Hydrox/Mg Hydrox/Simethicone (Maalox Plus 30 Ml) 30 ml PO Q4H PRN PRN Reason: Indigestion / Heartburn Allopurinol (Zyloprim) 100 mg PO DAILY [facility] Last Admin: 03/13/17 11:15 Dose: 100 mg Colchicine (Colocrys) 0.3 mg PO DAILY PRN PRN Reason: GOUT PAIN Ergocalciferol (Drisdol 50,000 Intl Units Cap) 1 cap PO QWK [facility] Last Admin: 03/10/17 10:34 Dose: 1 cap Ceftriaxone Sodium (Rocephin Iv 1 Gm Duplex) 50 mls @ 100 mls/hr IVPB Q24H [facility] Last Admin: 03/13/17 13:38 Dose: 100 mls/hr Sodium Chloride (Sodium Chloride 0.9%) 1,000 mls @ 100 mls/hr IV .Q10H [facility] Last Admin: 03/13/17 13:40 Dose: 100 mls/hr Vancomycin HCl 1 gm/ Sodium (Chloride) 250 mls @ 166.7 mls/hr IVPB Q24H [facility] Last Admin: 03/13/17 16:32 Dose: 166.7 mls/hr Insulin Human Regular (Novolin R) 0 unit SC ACHS [facility] PRN Reason: Protocol Last Admin: 03/13/17 15:20 Dose: Not Given Lidocaine (Lidoderm) 1 ea TD DAILY [facility] Last Admin: 03/13/17 11:16 Dose: 1 ea Pantoprazole Sodium (Protonix Ec Tab) 40 mg PO DAILY [facility] Last Admin: 03/13/17 11:15 Dose: 40 mg Rosuvastatin Calcium (Crestor) 5 mg PO HS [facility] Last Admin: 03/12/17 22:03 Dose: Not Given Tamsulosin HCl (Flomax) 0.4 mg PO HS [facility] Last Admin: 03/12/17 22:03 Dose: Not Given - Labs Labs: 03/11/17 10:50 03/11/17 10:50 - Additional Findings Additional findings: Head Exam Head Exam: ATRAUMATIC, NORMAL INSPECTION, NORMOCEPHALIC - Eye Exam Eye Exam: EOMI, PERRL - ENT Exam ENT Exam: Mucous Membranes Dry - Respiratory Exam Respiratory Exam: Clear to Auscultation Bilateral, Rales (b\l LL), NORMAL BREATHING PATTERN. absent: Accessory Muscle Use Additional comments: B\Lb\l LL ll - Cardiovascular Exam Cardiovascular Exam: Tachycardia, REGULAR RHYTHM, +S1, +S2, Systolic Murmur. absent: Gallop - GI/Abdominal Exam GI & Abdominal Exam: Normal Bowel Sounds, Soft. absent: Distended, Hernia, Mass , Tenderness - Neurological Exam Neurological exam: Alert, Altered, CN II-XII Intact Additional comments: wheel chair bound AAO-1-2 at base line - Psychiatric Exam Psychiatric exam: Normal Affect, Normal Mood - Skin Skin Exam: Dry, Intact, Petechiae - Additional Findings Additional findings: Assessment and Plan (1) UTI (urinary tract infection) Status: Acute (2) ARF (acute renal failure) Status: Acute (3) HTN (hypertension) Status: Chronic (4) Type 2 diabetes mellitus without complications Status: Chronic - Assessment and Plan (Free Text) Plan: ivf monitor cr agree with abdominal u\s\ eval continue abx
[2017-03-14] MEDS: (Novolin R) Insulin Human Regular 100 units/ml vial SC SCH ×4 (07:44→22:09)
[2017-03-14] MEDS: Sodium Chloride 0.9% 1,000 ML IV SCH ×3 (10:00→16:43)
[2017-03-14] MEDS: Pantoprazole 40 mg EC Tab PO SCH (10:19)
[2017-03-14] MEDS: Lidocaine 5% Patch TD SCH (10:20)
--- NOTE | 2017-03-14 10:52 | CP.PCM.PN ---
Subjective - Date & Time of Evaluation Date of Evaluation: 03/14/17 Time of Evaluation: 08:00 - Subjective Subjective: no fever iv rx in [place] for uti renal function being monitored await vanco levels Objective - Vital Signs/Intake and Output Vital Signs (last 24 hours): Temp Pulse Resp BP Pulse Ox 97.4 F L 87 20 119/75 96 03/14/17 08:39 03/14/17 08:39 03/14/17 08:39 03/14/17 08:39 03/14/17 08:39 Intake and Output: 03/14/17 03/14/17 06:59 18:59 Intake Total 1200 Balance 1200 - Medications Medications: Current Medications Acetaminophen (Tylenol 325mg Tab) 650 mg PO Q4H PRN PRN Reason: Pain, Mild (1-3) Al Hydrox/Mg Hydrox/Simethicone (Maalox Plus 30 Ml) 30 ml PO Q4H PRN PRN Reason: Indigestion / Heartburn Allopurinol (Zyloprim) 100 mg PO DAILY [facility] Last Admin: 03/14/17 10:20 Dose: 100 mg Colchicine (Colocrys) 0.3 mg PO DAILY PRN PRN Reason: GOUT PAIN Ergocalciferol (Drisdol 50,000 Intl Units Cap) 1 cap PO QWK [facility] Last Admin: 03/10/17 10:34 Dose: 1 cap Ceftriaxone Sodium (Rocephin Iv 1 Gm Duplex) 50 mls @ 100 mls/hr IVPB Q24H [facility] Last Admin: 03/13/17 13:38 Dose: 100 mls/hr Sodium Chloride (Sodium Chloride 0.9%) 1,000 mls @ 100 mls/hr IV .Q10H [facility] Last Admin: 03/14/17 00:00 Dose: 100 mls/hr Vancomycin HCl 1 gm/ Sodium (Chloride) 250 mls @ 166.7 mls/hr IVPB Q24H [facility] Last Admin: 03/13/17 16:32 Dose: 166.7 mls/hr Insulin Human Regular (Novolin R) 0 unit SC ACHS [facility] PRN Reason: Protocol Last Admin: 03/14/17 07:44 Dose: Not Given Lidocaine (Lidoderm) 1 ea TD DAILY [facility] Last Admin: 03/14/17 10:20 Dose: 1 ea Pantoprazole Sodium (Protonix Ec Tab) 40 mg PO DAILY [facility] Last Admin: 03/14/17 10:19 Dose: 40 mg Rosuvastatin Calcium (Crestor) [address] [facility] Last Admin: 03/13/17 21:45 Dose: Not Given Tamsulosin HCl (Flomax) 0.[address] [facility] Last Admin: 03/13/17 21:45 Dose: Not Given - Labs Labs: 03/11/17 10:50 03/11/17 10:50 - Constitutional Appears: Confused - Head Exam Head Exam: NORMOCEPHALIC - Eye Exam Eye Exam: PERRL - ENT Exam ENT Exam: Mucous Membranes Dry - Neck Exam Neck Exam: absent: Lymphadenopathy - Respiratory Exam Respiratory Exam: Decreased Breath Sounds - Cardiovascular Exam Cardiovascular Exam: REGULAR RHYTHM - GI/Abdominal Exam GI & Abdominal Exam: Distended Assessment and Plan (1) Renal insufficiency Status: Acute (2) UTI (urinary tract infection) Status: Acute (3) ARF (acute renal failure) Status: Acute (4) Acute pain of lower extremity Status: Acute (5) Altered mental status Status: Acute (6) Elevated PSA Status: Acute
[2017-03-14 11:20] LABS: BASO % 0.7 % (0.0-2.0); EOS # 0.1 K/uL (0.0-0.7); EOS % 1.7 % (0.0-4.0); HEMATOCRIT 32.7 % (35.0-51.0); LYMPH # 0.8 K/uL (1.0-4.3); LYMPH % 11.1 % (20.0-40.0); MEAN CELL VOLUME 81.4 fL (80.0-94.0); MEAN CORPUSCULAR HEMOGLOBIN 26.6 pg (27.0-31.0); MEAN CORPUSCULAR HGB CONC 32.7 g/dL (33.0-37.0); MEAN PLATELET VOLUME 10.2 fL (7.2-11.7); MONO # 0.5 K/uL (0.0-0.8); MONO % 6.8 % (0.0-10.0); RED CELL DISTRIBUTION WIDTH 16.3 % (11.5-14.5); WHITE BLOOD COUNT 7.1 K/uL (4.8-10.8)
--- NOTE | 2017-03-14 11:24 | US ---
HISTORY: uti, renal failure COMPARISON: None available. TECHNIQUE: Sonographic evaluation of the abdomen. FINDINGS: Markedly limited study due to patient condition. LIVER: Measures 15.6 cm in sagittal dimension. Echogenic liver may be seen in setting of hepatic parenchymal disease or fatty infiltration. No focal hepatic mass identified. The main portal vein appears patent with normal directional flow. No intrahepatic bile duct dilatation. GALLBLADDER: Gallstones. No gallbladder wall thickening. Negative sonographic Hall's sign as assessed by the inker machine. COMMON BILE DUCT: Measures 5 mm. PANCREAS: Not well visualized. RIGHT KIDNEY: Measures 13.6 x 6.7 x 6.6cm. Moderate hydronephrosis. No obstructing calculus identified. Upper pole probable cyst measures approximately 3.0 x 2.8 x 4.3 cm. Mid to lower pole probable cyst measures 2.8 x 1.1 x 2.5 cm. Trace perinephric fluid. LEFT KIDNEY: Measures 13.5 x 6.9 x 6.5cm. Moderate hydronephrosis. No obstructing calculus identified. 5.0 x 3.5 x 3.9 cm probable upper pole and 2.4 x 2.2 x 2.8 cm midpole renal cyst. SPLEEN: Measures approximately 13.7 cm. AORTA: Not well-visualized. IVC: Not well-visualized. OTHER FINDINGS: Urinary bladder appears severely distended measuring approximately 24.0 x 13.3 x 16.2 cm, calculated volume 2714 mL. Patient was unable to void. IMPRESSION: Limited study. Bilateral moderate hydronephrosis. Bilateral renal cysts. No obstructing calculi identified. Trace right perinephric fluid. Severe distention of the urinary bladder with calculated volume 2714 mL. Patient was unable to void. Cholelithiasis. Echogenic liver may be seen in setting of hepatic parenchymal disease or fatty infiltration.
[2017-03-14 11:38] LABS: POTASSIUM 4.1 mmol/L (3.6-5.2)
[2017-03-14 11:40] LABS: ALB/GLOB RATIO 0.7 (1.0-2.1); BILIRUBIN,TOTAL 0.5 mg/dL (0.2-1.3); TOTAL PROTEIN 6.7 g/dL (6.3-8.3)
[2017-03-14 11:41] LABS: CALCIUM 9.7 mg/dl (8.6-10.4)
[2017-03-14 11:55] LABS: PROSTATE SPECIFIC ANTIGEN 21.6 ng/mL (0.00-4.0)
[2017-03-14] MEDS: cefTRIAXone IV 1 gm in Dextros 50 ML IVPB SCH (12:53)
--- NOTE | 2017-03-14 23:06 | CP.PCM.PN ---
Subjective - Date & Time of Evaluation Date of Evaluation: 03/14/17 Time of Evaluation: 11:00 - Subjective Subjective: looks comfortable u\s ohtbaif-ceonin-vymqtescs bladder with b\l hydronephrosis , benitez was out last am. cr-2.9 on vancomycin benitez -cloudy urine Objective - Vital Signs/Intake and Output Vital Signs (last 24 hours): Temp Pulse Resp BP Pulse Ox 98.4 F 83 20 143/70 95 03/14/17 16:36 03/14/17 16:36 03/14/17 16:36 03/14/17 16:36 03/14/17 16:36 Intake and Output: 03/14/17 03/15/17 18:59 06:59 Intake Total 550 Output Total 2650 Balance -2100 - Medications Medications: Current Medications Acetaminophen (Tylenol 325mg Tab) 650 mg PO Q4H PRN PRN Reason: Pain, Mild (1-3) Al Hydrox/Mg Hydrox/Simethicone (Maalox Plus 30 Ml) 30 ml PO Q4H PRN PRN Reason: Indigestion / Heartburn Allopurinol (Zyloprim) 100 mg PO DAILY [facility] Last Admin: 03/14/17 10:20 Dose: 100 mg Colchicine (Colocrys) 0.3 mg PO DAILY PRN PRN Reason: GOUT PAIN Ergocalciferol (Drisdol 50,000 Intl Units Cap) 1 cap PO QWK [facility] Last Admin: 03/10/17 10:34 Dose: 1 cap Ceftriaxone Sodium (Rocephin Iv 1 Gm Duplex) 50 mls @ 100 mls/hr IVPB Q24H [facility] Last Admin: 03/14/17 12:53 Dose: 100 mls/hr Vancomycin HCl 1 gm/ Sodium (Chloride) 250 mls @ 166.7 mls/hr IVPB Q24H [facility] Last Admin: 03/14/17 16:34 Dose: 166.7 mls/hr Insulin Human Regular (Novolin R) 0 unit SC ACHS [facility] PRN Reason: Protocol Last Admin: 03/14/17 22:09 Dose: Not Given Lidocaine (Lidoderm) 1 ea TD DAILY [facility] Last Admin: 03/14/17 10:20 Dose: 1 ea Pantoprazole Sodium (Protonix Ec Tab) 40 mg PO DAILY [facility] Last Admin: 08/14/17 10:19 Dose: 40 mg Rosuvastatin Calcium (Crestor) 5 mg PO [facility] Last Admin: 03/14/17 22:19 Dose: 5 mg Tamsulosin HCl (Flomax) 0.4 mg PO [facility] Last Admin: 03/14/17 22:19 Dose: 0.4 mg - Labs Labs: 03/14/17 11:07 03/14/17 11:07 - Additional Findings Additional findings: Additional Findings Additional findings: Head Exam Head Exam: ATRAUMATIC, NORMAL INSPECTION, NORMOCEPHALIC - Eye Exam Eye Exam: EOMI, PERRL - ENT Exam ENT Exam: Mucous Membranes Dry - Respiratory Exam Respiratory Exam: Clear to Auscultation Bilateral, Rales (b\l LL), NORMAL BREATHING PATTERN. absent: Accessory Muscle Use Additional comments: B\Lb\l LL ll - Cardiovascular Exam Cardiovascular Exam: Tachycardia, REGULAR RHYTHM, +S1, +S2, Systolic Murmur. absent: Gallop - GI/Abdominal Exam GI & Abdominal Exam: Normal Bowel Sounds, Soft. absent: Distended, Hernia, Mass , Tenderness - Neurological Exam Neurological exam: Alert, Altered, CN II-XII Intact Additional comments: wheel chair bound AAO-1-2 at base line - Psychiatric Exam Psychiatric exam: Normal Affect, Normal Mood - Skin Skin Exam: Dry, Intact, Petechiae - Additional Findings Additional findings: benitez- clody yellow urine Assessment and Plan (1) UTI (urinary tract infection) Status: Acute (2) ARF (acute renal failure) Status: Acute (3) HTN (hypertension) Status: Chronic (4) Type 2 diabetes mellitus without complications Status: Chronic - Assessment and Plan (Free Text) Plan: continue monitor I\O cr ivf ND bx to continue urology\ID on board
[2017-03-15] MEDS: (Novolin R) Insulin Human Regular 100 units/ml vial SC SCH ×4 (07:48→22:08)
--- NOTE | 2017-03-15 08:30 | CP.PCM.PN ---
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 Bilateral renal cysts. No obstructing calculi identified. Trace right perinephric fluid. Severe distention of the urinary bladder with calculated volume 2714 mL. Patient was unable to void.Cholelithiasis. Echogenic liver may be seen in setting of hepatic parenchymal disease or fatty infiltration). D/w Dr. murphy regarding US findings- patient has hx of BPH. pt on flomax will insert benitez cath and consult Dr. mosquera for urinary retention Objective - Vital Signs/Intake and Output Vital Signs (last 24 hours): Temp Pulse Resp BP Pulse Ox 97.9 F 85 20 108/62 95 03/15/17 07:41 03/15/17 07:41 03/15/17 07:41 03/15/17 07:41 03/15/17 07:41 Intake and Output: 03/15/17 03/15/17 06:59 18:59 Intake Total 1000 Output Total 2300 1700 Balance -1300 -1700 - Medications Medications: Current Medications Acetaminophen (Tylenol 325mg Tab) 650 mg PO Q4H PRN PRN Reason: Pain, Mild (1-3) Al Hydrox/Mg Hydrox/Simethicone (Maalox Plus 30 Ml) 30 ml PO Q4H PRN PRN Reason: Indigestion / Heartburn Allopurinol (Zyloprim) 100 mg PO DAILY [facility] Last Admin: 03/14/17 10:20 Dose: 100 mg Colchicine (Colocrys) 0.3 mg PO DAILY PRN PRN Reason: GOUT PAIN Ergocalciferol (Drisdol 50,000 Intl Units Cap) 1 cap PO QWK [facility] Last Admin: 03/10/17 10:34 Dose: 1 cap Ceftriaxone Sodium (Rocephin Iv 1 Gm Duplex) 50 mls @ 100 mls/hr IVPB Q24H [facility] Last Admin: 03/14/17 12:53 Dose: 100 mls/hr Vancomycin HCl 1 gm/ Sodium (Chloride) 250 mls @ 166.7 mls/hr IVPB Q24H [facility] Last Admin: 03/14/17 16:34 Dose: 166.7 mls/hr Insulin Human Regular (Novolin R) 0 unit SC ACHS [facility] PRN Reason: Protocol Last Admin: 03/15/17 07:48 Dose: Not Given Lidocaine (Lidoderm) 1 ea TD DAILY [facility] Last Admin: 03/14/17 10:20 Dose: 1 ea Pantoprazole Sodium (Protonix Ec Tab) 40 mg PO DAILY [facility] Last Admin: 03/14/17 10:19 Dose: 40 mg Rosuvastatin Calcium (Crestor) 5 mg PO HS [facility] Last Admin: 03/14/17 22:19 Dose: 5 mg Tamsulosin HCl (Flomax) 0.4 mg PO HS [facility] Last Admin: 03/14/17 22:19 Dose: 0.4 mg - Labs Labs: 03/14/17 11:07 03/14/17 11:07
[2017-03-15] MEDS: Lidocaine 5% Patch TD SCH (10:38)
[2017-03-15] MEDS: Pantoprazole 40 mg EC Tab PO SCH (10:38)
[2017-03-15] MEDS: cefTRIAXone IV 1 gm in Dextros 50 ML IVPB SCH (13:38)
--- NOTE | 2017-03-15 22:55 | CP.PCM.PN ---
Subjective - Date & Time of Evaluation Date of Evaluation: 03/15/17 Time of Evaluation: 09:00 - Subjective Subjective: refused blood work today has benitez,pink urine last pm. no complaints stable vitals toelrating meds URology- advise cystoscopy id wants to continue abx Objective - Vital Signs/Intake and Output Vital Signs (last 24 hours): Temp Pulse Resp BP Pulse Ox 98.2 F 74 20 126/62 96 03/15/17 15:07 03/15/17 15:07 03/15/17 15:07 03/15/17 15:07 03/15/17 15:07 Intake and Output: 03/15/17 03/16/17 18:59 06:59 Intake Total 1200 Output Total 3700 Balance -2500 - Medications Medications: Current Medications Acetaminophen (Tylenol 325mg Tab) 650 mg PO Q4H PRN PRN Reason: Pain, Mild (1-3) Al Hydrox/Mg Hydrox/Simethicone (Maalox Plus 30 Ml) 30 ml PO Q4H PRN PRN Reason: Indigestion / Heartburn Allopurinol (Zyloprim) 100 mg PO DAILY [facility] Last Admin: 03/15/17 10:38 Dose: 100 mg Colchicine (Colocrys) 0.3 mg PO DAILY PRN PRN Reason: GOUT PAIN Ergocalciferol (Drisdol 50,000 Intl Units Cap) 1 cap PO QWK [facility] Last Admin: 03/10/17 10:34 Dose: 1 cap Ceftriaxone Sodium (Rocephin Iv 1 Gm Duplex) 50 mls @ 100 mls/hr IVPB Q24H [facility] Last Admin: 03/15/17 13:38 Dose: 100 mls/hr Vancomycin HCl 1 gm/ Sodium (Chloride) 250 mls @ 166.7 mls/hr IVPB Q24H [facility] Last Admin: 03/15/17 15:57 Dose: 166.7 mls/hr Insulin Human Regular (Novolin R) 0 unit SC ACHS [facility] PRN Reason: Protocol Last Admin: 03/15/17 22:08 Dose: Not Given Lidocaine (Lidoderm) 1 ea TD DAILY [facility] Last Admin: 03/15/17 10:38 Dose: Not Given Pantoprazole Sodium (Protonix Ec Tab) 40 mg PO DAILY [facility] Last Admin: 03/15/17 10:38 Dose: 40 mg Rosuvastatin Calcium (Crestor) 5 mg PO [facility] Last Admin: 03/15/17 22:04 Dose: 5 mg Tamsulosin HCl (Flomax) 0.4 mg PO [facility] Last Admin: 03/15/17 22:04 Dose: 0.4 mg - Labs Labs: 03/14/17 11:07 03/14/17 11:07 - Additional Findings Additional findings: Additional Findings Additional findings: Head Exam Head Exam: ATRAUMATIC, NORMAL INSPECTION, NORMOCEPHALIC - Eye Exam Eye Exam: EOMI, PERRL - ENT Exam ENT Exam: Mucous Membranes Dry - Respiratory Exam Respiratory Exam: Clear to Auscultation Bilateral, Rales (b\l LL), NORMAL BREATHING PATTERN. absent: Accessory Muscle Use Additional comments: B\Lb\l LL ll - Cardiovascular Exam Cardiovascular Exam: Tachycardia, REGULAR RHYTHM, +S1, +S2, Systolic Murmur. absent: Gallop - GI/Abdominal Exam GI & Abdominal Exam: Normal Bowel Sounds, Soft. absent: Distended, Hernia, Mass , Tenderness - Neurological Exam Neurological exam: Alert, Altered, CN II-XII Intact Additional comments: wheel chair bound AAO-1-2 at base line - Psychiatric Exam Psychiatric exam: Normal Affect, Normal Mood - Skin Skin Exam: Dry, Intact, Petechiae - Additional Findings Additional findings: benitez- clearing cloddy urine Assessment and Plan (1) UTI (urinary tract infection) Status: Acute (2) ARF (acute renal failure) Status: Acute (3) HTN (hypertension) Status: Chronic (4) Type 2 diabetes mellitus without complications Status: Chronic - Assessment and Plan (Free Text) Plan: ARF likley due to post renal with dehydration will rpt u]s abdomen continue abx d\w pt to get blood work-refused
[2017-03-15] MEDS: Sodium Chloride 0.9% 1,000 ML IV SCH (23:30)
[2017-03-16 00:45] VITALS: TEMP 97.9
[2017-03-16 07:43] VITALS: O2SAT 96
[2017-03-16] MEDS: (Novolin R) Insulin Human Regular 100 units/ml vial SC SCH ×2 (07:55→12:00)
[2017-03-16 08:25] LABS: POTASSIUM 3.4 mmol/L (3.6-5.2)
[2017-03-16 08:27] LABS: BILIRUBIN,TOTAL 0.5 mg/dL (0.2-1.3)
[2017-03-16 08:28] LABS: ALB/GLOB RATIO 0.7 (1.0-2.1); CALCIUM 8.8 mg/dl (8.6-10.4); TOTAL PROTEIN 5.7 g/dL (6.3-8.3)
[2017-03-16] MEDS ORDERED: Potassium Chloride 20 mEq ER Tab PO ONE (10:00)
[2017-03-16] MEDS: Pantoprazole 40 mg EC Tab PO SCH (10:50)
[2017-03-16] MEDS: Sodium Chloride 0.9% 1,000 ML IV SCH (10:57)
[2017-03-16] MEDS: Lidocaine 5% Patch TD SCH (11:04)
--- NOTE | 2017-03-16 12:33 | CP.PCM.CON ---
History of Present Illness - History of Present Illness History of Present Illness: PLEASE SEE DICTATED REPORT JOB # [id number] THANK YOU YS Past Patient History - Past Medical History & Family History Past Medical History?: Yes - Past Social History Smoking Status: Former Smoker - CARDIAC Hx Cardiac Disorders: Yes Hx Hypertension: Yes - PULMONARY Hx Chronic Obstructive Pulmonary Disease (COPD): No - NEUROLOGICAL HX Cerebrovascular Accident: Yes - HEENT Hx HEENT Problems: No Hx Blind: No Hx Cataracts: No Hx Deafness: No Hx Difficulty Chewing: No Hx Epistaxis: No Hx Glaucoma: No Hx Macular Degeneration: No - RENAL Hx Chronic Kidney Disease: No Hx Kidney Stones: No - ENDOCRINE/METABOLIC Hx Hypothyroidism: No - HEMATOLOGICAL/ONCOLOGICAL Hx Blood Disorders: No Hx Anemia: No Hx Human Immunodeficiency Virus (HIV): No Hx Sickle Cell Disease: No - INTEGUMENTARY Hx Dermatological Problems: No Hx Basil Cell: No Hx Hernández: No Hx Cellulitis: No Hx Eczema: No Hx Melanoma: No Hx Psoriasis: No Hx Squamous Cell: No - MUSCULOSKELETAL/RHEUMATOLOGICAL Hx Arthritis: Yes (Gout) Hx Rheumatoid Arthritis: No - GASTROINTESTINAL Hx Gastrointestinal Disorders: Yes Hx Diverticulitis: Yes - GENITOURINARY/GYNECOLOGICAL Hx Genitourinary Disorders: No Hx Sexually Transmitted Disorders: No - PSYCHIATRIC Hx Psychophysiologic Disorder: No Hx Substance Use: No - SURGICAL HISTORY Hx Surgeries: Yes Hx Appendectomy: No Hx Carotid Endarterectomy: No Hx Cholecystectomy: No Hx Coronary Artery Bypass Graft: No Hx Coronary Stent: No Hx Tonsillectomy: No - ANESTHESIA Hx Anesthesia: Yes Hx Anesthesia Reactions: No Hx Malignant Hyperthermia: No Meds Home Medications: Home Medication List Medication Instructions Recorded Confirmed Type Acetaminophen [Tylenol 325mg tab] 650 mg PO Q4H PRN tab 03/16/17 Rx Allopurinol [Zyloprim] 100 mg PO DAILY tab 03/16/17 Rx Aluminum Hydroxide/Magnesium 30 ml PO Q4H PRN 03/16/17 Rx [Maalox Plus 30 ml] Ergocalciferol [Drisdol 50,000 1 cap PO QWK cap 03/16/17 Rx Intl Units Cap] Rosuvastatin Calcium [Crestor] 5 mg PO HS tab 03/16/17 Rx Tamsulosin [Flomax] 0.4 mg PO HS cap 03/16/17 Rx Vancomycin [Vancomycin Inj] 1 gm IVPB QOD6 #5 vial 03/16/17 Rx cefTRIAXone 1 gm [Rocephin 1 gram 1 gm IVPB DAILY #5 bag 03/16/17 Rx IVPB] Allergies/Adverse Reactions: Allergies Allergy/AdvReac Type Severity Reaction Status Date / Time No Known Allergies Allergy Verified 03/09/17 22:36 - Medications Medications: Current Medications Acetaminophen (Tylenol 325mg Tab) 650 mg PO Q4H PRN PRN Reason: Pain, Mild (1-3) Al Hydrox/Mg Hydrox/Simethicone (Maalox Plus 30 Ml) 30 ml PO Q4H PRN PRN Reason: Indigestion / Heartburn Allopurinol (Zyloprim) 100 mg PO DAILY [facility] Last Admin: 03/16/17 10:50 Dose: 100 mg Colchicine (Colocrys) 0.3 mg PO DAILY PRN PRN Reason: GOUT PAIN Ergocalciferol (Drisdol 50,000 Intl Units Cap) 1 cap PO QWK [facility] Last Admin: 03/10/17 10:34 Dose: 1 cap Ceftriaxone Sodium (Rocephin Iv 1 Gm Duplex) 50 mls @ 100 mls/hr IVPB Q24H [facility] Last Admin: 03/15/17 13:38 Dose: 100 mls/hr Vancomycin HCl 1 gm/ Sodium (Chloride) 250 mls @ 166.7 mls/hr IVPB Q24H [facility] Last Admin: 03/15/17 15:57 Dose: 166.7 mls/hr Sodium Chloride (Sodium Chloride 0.9%) 1,000 mls @ 100 mls/hr IV .Q10H [facility] Last Admin: 03/16/17 10:57 Dose: 100 mls/hr Insulin Human Regular (Novolin R) 0 unit SC ACHS [facility] PRN Reason: Protocol Last Admin: 03/16/17 07:55 Dose: Not Given Lidocaine (Lidoderm) 1 ea TD DAILY [facility] Last Admin: 03/16/17 11:04 Dose: Not Given Pantoprazole Sodium (Protonix Ec Tab) 40 mg PO DAILY [facility] Last Admin: 03/16/17 10:50 Dose: 40 mg Rosuvastatin Calcium (Crestor) 5 mg PO HS [facility] Last Admin: 03/15/17 22:04 Dose: 5 mg Tamsulosin HCl (Flomax) 0.4 mg PO HS [facility] Last Admin: 03/15/17 22:04 Dose: 0.4 mg Results - Vital Signs Recent Vital Signs: Last Vital Signs Temp 97.9 F 03/16/17 07:40 Pulse 78 03/16/17 07:40 Resp 20 03/16/17 07:40 BP 103/63 03/16/17 07:40 Pulse Ox 96 03/16/17 07:40 - Labs Result Diagrams: 03/14/17 11:07 03/16/17 08:01 Labs: Laboratory Results - last 24 hr 03/15/17 03/15/17 03/16/17 16:51 21:34 06:09 Sodium Potassium Chloride Carbon Dioxide Anion Gap BUN Creatinine Est GFR ( Amer) Est GFR (Non-Af Amer) POC Glucose (mg/dL) 133 H 141 H 132 H Random Glucose Calcium Total Bilirubin AST ALT Alkaline Phosphatase Total Protein Albumin Globulin Albumin/Globulin Ratio 03/16/17 03/16/17 08:01 11:13 Sodium 145 Potassium 3.4 L Chloride 117 H Carbon Dioxide 20 L Anion Gap 11 BUN 24 H Creatinine 1.7 H Est GFR ( Amer) 46 Est GFR (Non-Af Amer) 38 POC Glucose (mg/dL) 167 H Random Glucose 96 Calcium 8.8 Total Bilirubin 0.5 AST 14 L ALT 25 Alkaline Phosphatase 60 Total Protein 5.7 L Albumin 2.4 L Globulin 3.3 Albumin/Globulin Ratio 0.7 L Assessment & Plan - Assessment and Plan (Free Text) Assessment: urinary retention - Date & Time Date: 03/16/17 Time: 11:10
[2017-03-16] MEDS: cefTRIAXone IV 1 gm in Dextros 50 ML IVPB SCH (14:30)
[2017-03-16 16:13] VITALS: BP 133/84; PULSE 76
--- NOTE | 2017-03-22 12:35 | CON ---
DATE: 03/16/2017 UROLOGY CONSULTATION REQUESTING PHYSICIAN: Dr. Reynolds. REASON FOR CONSULTATION: Urinary retention. HISTORY OF PRESENT ILLNESS: The patient is an 86-year-old male admitted to the hospital on 03/10. The patient was admitted for azotemia. The patient is a resident of a assisted. The patient was admitted for urinary tract infection and renal insufficiency. The patient has history of hypertension and COPD. The patient previously was a smoker. The patient had infectious disease care and consultation during this admission. The patient also history of diverticulitis. The patient is not a reliable historian. There is no report of hematuria. No report of abdominal pain. No history of stroke. No history of diabetes. No history of urolithiasis. The patient has been treated with antibiotic therapy. The patient has history of diabetes as well. The patient had a Bennett catheter inserted, because of findings of urinary retention noted on bladder ultrasound. Also noted was bilateral hydronephrosis. PHYSICAL EXAMINATION GENERAL: The patient is well-developed, well-nourished elderly male. The patient is awake. He is confused. ABDOMEN: Soft, nontender, nondistended. No mass or organomegaly. BACK: No CVA tenderness. GENITALIA: Without inflammation. The urine is clear even in the Bennett catheter. RECTAL: Normal sphincter tone. Prostate is mildly enlarged, approximately 40 g in size. Prostate is smooth and supple without fixation, induration, or nodularity. LABORATORY DATA: See attached reports. On abdominal ultrasound, the patient was noted to have a distended bladder with a volume of 2700 mL. Also noted was cholelithiasis. Also noted was a hydronephrosis. IMPRESSION: An 86-year-old male with urinary retention. The etiology of urinary retention may be due to prostatic enlargement, bladder outlet obstruction. Also possible is detrusor muscle hypofunction, associated with diabetes and/or chronic retention and distention of the bladder. RECOMMENDATION AND PLAN: Bennett catheter indwelling. Continue antibiotic therapy for urinary tract infection. Serum PSA. Possible further urology evaluation including cystogram, cystometrogram and cystoscopy. Further therapy to follow according to the patient's clinical course. Thank you for recommending the patient for urology consultation. Magalia MD Kay cc: Carolann Reynolds MD
--- NOTE | 2017-03-22 20:23 | CARD ---
APPROVED REPORT EKG Measurement Heart [id number] [id number] <Conclusion> Sinus tachycardia with premature supraventricular complexes Nonspecific T wave abnormality Abnormal ECG
--- NOTE | 2017-03-23 14:30 | CARD ---
APPROVED REPORT EKG Measurement Heart [id number] <Conclusion> Sinus rhythm with premature atrial complexes Nonspecific T wave abnormality Abnormal ECG
--- NOTE | 2017-03-31 13:18 | CP.PCM.DIS ---
Provider - Provider Date of Admission: 03/10/17 02:25 Attending physician: Carolann Reynolds MD Time Spent in preparation of Discharge (in minutes): 30 Diagnosis - Discharge Diagnosis (1) UTI (urinary tract infection) Status: Acute (2) ARF (acute renal failure) Status: Resolved (3) HTN (hypertension) Status: Chronic (4) Type 2 diabetes mellitus without complications Status: Chronic (5) Altered mental status Status: Resolved (6) Dehydration Status: Resolved (7) Gout Status: Chronic (8) Urine retention Status: Acute Hospital Course - Lab Results Lab Results: Micro Results 03/10/17 04:00 Blood Blood Culture - Final NO GROWTH AFTER 5 DAYS 03/10/17 04:00 Blood Gram Stain - Final 03/10/17 03:30 Blood Blood Culture - Final NO GROWTH AFTER 5 DAYS 03/10/17 03:30 Blood Gram Stain - Final TEST NOT PERFORMED 03/11/17 11:00 Urine,Clean Catch Urine Culture - Final Morg Morganii Ss Morganii Methicillin Resistant S Aureus Most Recent Lab Values WBC 7.1 K/uL (4.8-10.8) 03/14/17 11:07 RBC 4.02 Mil/uL (4.40-5.90) L 03/14/17 11:07 Hgb 10.7 g/dL (12.0-18.0) L 03/14/17 11:07 Hct 32.7 % (35.0-51.0) L 03/14/17 11:07 MCV 81.4 fL (80.0-94.0) 03/14/17 11:07 MCH 26.6 pg (27.0-31.0) L 03/14/17 11:07 MCHC 32.7 g/dL (33.0-37.0) L 03/14/17 11:07 RDW 16.3 % (11.5-14.5) H 03/14/17 11:07 Plt Count 199 K/uL (130-400) 03/14/17 11:07 MPV 10.2 fL (7.2-11.7) 03/14/17 11:07 Neut % (Auto) 79.7 % (50.0-75.0) H 03/14/17 11:07 Lymph % (Auto) 11.1 % (20.0-40.0) L 03/14/17 11:07 [place] % (Auto) 6.8 % (0.0-10.0) 03/14/17 11:07 Eos % (Auto) 1.7 % (0.0-4.0) 03/14/17 11:07 Baso % (Auto) 0.7 % (0.0-2.0) 03/14/17 11:07 Neut # 5.6 K/uL (1.8-7.0) 03/14/17 11:07 Lymph # 0.8 K/uL (1.0-4.3) L 03/14/17 11:07 [place] # 0.5 K/uL (0.0-0.8) 03/14/17 11:07 Eos # 0.1 K/uL (0.0-0.7) 03/14/17 11:07 Baso # 0.0 K/uL (0.0-0.2) 03/14/17 11:07 Neutrophils % (Manual) 77 % (50-75) H 03/11/17 10:50 Band Neutrophils % 4 % (0-2) H 03/11/17 10:50 Lymphocytes % (Manual) 11 % (20-40) L 03/11/17 10:50 Monocytes % (Manual) 8 % (0-10) 03/11/17 10:50 Platelet Estimate Normal (NORMAL) 03/11/17 10:50 Poikilocytosis (manual Slight 03/11/17 10:50 Anisocytosis (manual) Slight 03/11/17 10:50 Sodium 145 mmol/L (132-148) 03/16/17 08:01 Potassium 3.4 mmol/L (3.6-5.2) L 03/16/17 08:01 Chloride 117 mmol/L (98-107) H 03/16/17 08:01 Carbon Dioxide 20 mmol/L (22-30) L 03/16/17 08:01 Anion Gap 11 (10-20) 03/16/17 08:01 BUN 24 mg/dL (9-20) H 03/16/17 08:01 Creatinine 1.7 MG/DL (0.8-1.5) H 03/16/17 08:01 Est GFR ( Amer) 46 03/16/17 08:01 Est GFR (Non-Af Amer) 38 03/16/17 08:01 POC Glucose (mg/dL) 167 mg/dL (65-110) H 03/16/17 11:13 Random Glucose 96 mg/dL (75-110) 03/16/17 08:01 Hemoglobin A1c 5.8 % (4.2-6.5) 03/10/17 11:27 Calcium 8.8 mg/dl (8.6-10.4) 03/16/17 08:01 Total Bilirubin 0.5 mg/dL (0.2-1.3) 03/16/17 08:01 AST 14 U/L (17-59) L 03/16/17 08:01 ALT 25 U/L (21-72) 03/16/17 08:01 Alkaline Phosphatase 60 U/L (38-126) 03/16/17 08:01 Total Protein 5.7 g/dL (6.3-8.3) L 03/16/17 08:01 Albumin 2.4 g/dL (3.5-5.0) L 03/16/17 08:01 Globulin 3.3 gm/dL (2.2-3.9) 03/16/17 08:01 Albumin/Globulin Ratio 0.7 (1.0-2.1) L 03/16/17 08:01 Prostate Specific Ag 21.6 ng/mL (0.00-4.0) H 03/14/17 11:07 Urine Color Yellow (YELLOW) 03/09/17 23:11 Urine Clarity Turbid (Clear) 03/09/17 23:11 Urine pH 6.0 (5.0-8.0) 03/09/17 23:11 Ur Specific [place] 1.009 (1.003-1.030) 03/09/17 23:11 Urine Protein 2+ mg/dL (NEGATIVE) H 03/09/17 23:11 Urine Glucose (UA) Normal mg/dL (Normal) 03/09/17 23:11 Urine Ketones Negative mg/dL (NEGATIVE) 03/09/17 23:11 Urine Blood 2+ (NEGATIVE) H 03/09/17 23:11 Urine Nitrate Negative (NEGATIVE) 03/09/17 23:11 Urine Bilirubin Negative (NEGATIVE) 03/09/17 23:11 Urine Urobilinogen Normal mg/dL (0.2-1.0) 03/09/17 23:11 Ur Leukocyte Esterase 3+ Gerda/uL (Negative) H 03/09/17 23:11 Urine WBC (Auto) 3931 /hpf (0-5) H 03/09/17 23:11 Urine RBC (Auto) 26 /hpf (0-3) H 03/09/17 23:11 Urine WBC Clumps (Auto) Many /hpf (NONE) H 03/09/17 23:11 Urine Bacteria Many (<OCC) H 03/09/17 23:11 Vancomycin Trough 15.9 ug/mL (5.0-10.0) H 03/14/17 11:07 - Hospital Course Hospital Course: as per urology, d\c with johnston and abx - to f\u as out pt for cystoscopy. Discharge Exam - Head Exam Head Exam: NORMOCEPHALIC - Additional Findings Additional findings: Additional Findings Additional findings: Head Exam Head Exam: ATRAUMATIC, NORMAL INSPECTION, NORMOCEPHALIC - Eye Exam Eye Exam: EOMI, PERRL - ENT Exam ENT Exam: Mucous Membranes Dry - Respiratory Exam Respiratory Exam: Clear to Auscultation Bilateral, Rales (b\l LL), NORMAL BREATHING PATTERN. absent: Accessory Muscle Use Additional comments: - Cardiovascular Exam Cardiovascular Exam: Tachycardia, REGULAR RHYTHM, +S1, +S2, Systolic Murmur. absent: Gallop - GI/Abdominal Exam GI & Abdominal Exam: Normal Bowel Sounds, Soft. absent: Distended, Hernia, Mass , Tenderness - Neurological Exam Neurological exam: Alert, Altered, CN II-XII Intact Additional comments: wheel chair bound AAO-1-2 at base line - Psychiatric Exam Psychiatric exam: Normal Affect, Normal Mood - Skin Skin Exam: Intact, Petechiae - Additional Findings Additional findings: johnston- mild cloudy urine Discharge Plan - Follow Up Plan Condition: STABLE Disposition: REHAB FACILITY/REHAB UNIT Instructions: Acute Kidney Injury (DC), Urinary Tract Infection in Men (DC), Renal Failure Diet (DC), Hypertension (DC), Hypertension (GEN) Additional Instructions: PLEASE CALL DR. LIRA UPON PATIENT ARRIVAL TO THE FACILITY PLEASE CALL DR. VILLANUEVA OFFICE AND MAKE APPOINTMENT - NEED CYSTO CONTINUE ROCEPHIN DAILY X 5 MORE DAYS CONTINUE VANCOMYCIN EVERY OTHER DAY X 5 MORE DOSES PLEASE DO CBC, BMP AND VANCO TROUGH TUESDAY PLEASE REPEAT U/A AND C&S AFTER THE COMPLETION OF ANTIBIOTICS KEEP JOHNSTON CATH IN UNTIL SEEN BY DR. VILLANUEVA PT CAN BE DISCHARGED WITH H/L Referrals: Radha Villanueva MD [Staff Provider] - Carolann Reynolds MD [Staff Provider] -
== END 2017-03-16 17:36 | DRG 683 ==
LOC: C.ER 22:26 → C.9E 03-10 02:25 → C.5T 03-10 07:19
PROVIDERS: ADMIT Internal Medicine; ATTEND Internal Medicine
DX: N17.9 Acute kidney failure, unspecified (principal); N39.0 Urinary tract infection, site not specified; B95.62 Methicillin resistant Staphylococcus aureus infection as the cause of diseases classified elsewhere; K57.92 Diverticulitis of intestine, part unspecified, without perforation or abscess without bleeding; E11.9 Type 2 diabetes mellitus without complications; I10 Essential (primary) hypertension; N13.30 Unspecified hydronephrosis; M79.669 Pain in unspecified lower leg; Z87.891 Personal history of nicotine dependence; N40.0 Benign prostatic hyperplasia without lower urinary tract symptoms; N28.1 Cyst of kidney, acquired; E86.0 Dehydration; M10.9 Gout, unspecified; R41.82 Altered mental status, unspecified

== ENCOUNTER 2017-03-20 23:46 | Inpatient (IN) | payer MEDICARE, MEDICAID ==
[2017-03-21 01:10] LABS: VENOUS BLOOD GAS BASE EXCESS -0.9 mmol/L (0.0-2.0); VENOUS BLOOD GAS PCO2 31 mmHg (40-60); VENOUS BLOOD PH 7.46 (7.32-7.43)
[2017-03-21 01:18] LABS: BASO # 0.1 K/uL (0.0-0.2); BASO % 0.5 % (0.0-2.0); EOS % 0.3 % (0.0-4.0); HEMATOCRIT 29.8 % (35.0-51.0); LYMPH # 0.9 K/uL (1.0-4.3); LYMPH % 7.7 % (20.0-40.0); MEAN CELL VOLUME 80.1 fL (80.0-94.0); MEAN CORPUSCULAR HEMOGLOBIN 25.9 pg (27.0-31.0); MEAN CORPUSCULAR HGB CONC 32.3 g/dL (33.0-37.0); MEAN PLATELET VOLUME 10.2 fL (7.2-11.7); MONO # 0.9 K/uL (0.0-0.8); MONO % 7.8 % (0.0-10.0); PLATELET COUNT 215 K/uL (130-400); RED CELL DISTRIBUTION WIDTH 16.2 % (11.5-14.5)
[2017-03-21] MEDS ORDERED: Sodium Chloride 0.9% 1,000 ML IV ONE ×2 (01:22)
[2017-03-21 01:25] LABS: POTASSIUM 4.3 mmol/L (3.6-5.2)
[2017-03-21 01:27] LABS: ALB/GLOB RATIO 0.7 (1.0-2.1); BILIRUBIN,TOTAL 0.6 mg/dL (0.2-1.3); TOTAL PROTEIN 6.4 g/dL (6.3-8.3)
[2017-03-21 01:28] LABS: CALCIUM 9.2 mg/dl (8.6-10.4)
[2017-03-21] MEDS ORDERED: Cefepime 1 GM in Sodium Chloride 0.9% 50 ML IVPB STA (01:32)
[2017-03-21] MEDS ORDERED: Moxifloxacin IV 400mg/250ml NS 400 MG/250 ML BAG IV STA (01:35)
[2017-03-21] MEDS ORDERED: Vancomycin 1 GM 1 GM/250 ML BAG IV STA (01:37)
[2017-03-21] MEDS ORDERED: Moxifloxacin IV 400mg/250ml NS 400 MG/250 ML BAG IVPB ONE ×2 (01:49→08:52)
[2017-03-21] MEDS ORDERED: Vancomycin 1 GM 1 GM/250 ML BAG IVPB ONE (01:49)
[2017-03-21] MEDS ORDERED: Cefepime 1 GM in Sodium Chloride 0.9% 100 ML IVPB STA (01:50)
--- NOTE | 2017-03-21 02:00 | CT ---
EXAM: CT Chest Without Intravenous Contrast CLINICAL HISTORY: 86 years old, male; Pain; Chest pain; Type not specified; Additional info: Right chest pneumonia vs tb TECHNIQUE: Axial computed tomography images of the chest without intravenous contrast. All CT scans at this facility use one or more dose reduction techniques, viz.: automated exposure control; ma/kV adjustment per patient size (including targeted exams where dose is matched to indication; i.e. head); or iterative reconstruction technique. Coronal and sagittal reformatted images were created and reviewed. COMPARISON: No relevant prior studies available. FINDINGS: Limitations: Motion artifact - mild. Streak artifact - mild. Lack of intravenous contrast. Lungs: Mild emphysematous changes. Mild dependent/peripheral atelectasis/scarring. Few minimal groundglass opacities within upper lobes. No consolidation. Pleural space: No pneumothorax. No significant effusion. Heart: Borderline cardiomegaly. No significant pericardial effusion. Coronary artery calcifications. Thyroid: Mild heterogeneity. Bones/joints: No acute fracture. Soft tissues: Unremarkable. Vasculature: Moderate atherosclerotic disease. No aneurysm. Lymph nodes: No pathologically enlarged lymph nodes. Gallbladder and bile ducts: Calcified gallstones. Adrenals: Mild hypertrophy of adrenal glands. Kidneys and ureters: Few probable renal cysts. IMPRESSION: 1. Groundglass opacities, nonspecific. 2. Emphysema. 3. Heterogeneous thyroid. Followup as clinically warranted. 4. Incidental/non-acute findings are described above.
[2017-03-21 02:36] LABS: URINE BILIRUBIN NEGATIVE (NEGATIVE); URINE BLOOD 3+ (NEGATIVE); URINE COLOR LIGHT RED (YELLOW); URINE GLUCOSE (UA) NEGATIVE (Normal); URINE KETONE NEGATIVE (NEGATIVE); URINE PROTEIN 2+ mg/dL (NEGATIVE)
[2017-03-21 02:37] LABS: RBC URINE 364 /hpf (0-3); URINE BACTERIA OCC (<OCC); URINE LEUKOCYTE ESTERASE 2+ Leu/uL (Negative); URINE UROBILINOGEN Normal mg/dL (0.2-1.0)
[2017-03-21 02:40] LABS: URINE HYALINE CAST >20 /lpf (0-2); WBC URINE 105 /hpf (0-5)
[2017-03-21 02:47] LABS: NEUTROPHIL 86 % (50-75); TOTAL CELLS COUNTED 100
--- NOTE | 2017-03-21 03:03 | C.PDOC ---
History Of Present Illness Patient sent to ED from [facility] for "possible TB". Patient apparently had outpatient Xray that showed "right upper lobe pneumonia vs TB". PMHx of DM II, gout, hyperlipidemia, dementia, hepatitis C. History limited due to dementia. Time Seen by Provider: 03/21/17 00:31 Chief Complaint (Nursing): Fever History Per: EMS, Other ([facility] records) Onset/Duration Of Symptoms: Unknown Current Symptoms Are (Timing): Still Present Past Medical History Reviewed: Historical Data, Nursing Documentation, Vital Signs Vital Signs: Last Vital Signs Temp 98.3 F 03/24/17 15:45 Pulse 92 H 03/24/17 18:00 Resp 20 03/24/17 15:45 BP 118/69 03/24/17 15:45 Pulse Ox 100 03/24/17 15:45 - Medical History PMH: Arthritis (Gout), Diverticulitis, HTN Denies: Bipolar Disorder, Bronchitis, CAD Surgical History: No Surg Hx - [facility] Procedures APPLICATION OF SPLINT (08/07/13) EXCISION OF TOE NAIL, EXTERNAL APPROACH (10/20/15) Family History: States: Other Other Family History: noncontributory - Social History Hx Alcohol Use: No Hx Substance Use: No Review Of Systems Review Of Systems: ROS cannot be obtained secondary to pt's inabilty to answer questions. Physical Exam - Physical Exam Appears: Non-toxic, Chronically Ill Skin: Warm, Dry, No Rash Oral Mucosa: Dry Cardiovascular: Rhythm Regular (tachycardic ) Respiratory: Normal Breath Sounds, No Accessory Muscle Use, No Rales, No Rhonchi , No Wheezing Gastrointestinal/Abdominal: Normal Exam, Bowel Sounds, Soft, No Tenderness Extremity: Normal ROM, No Pedal Edema, No Calf Tenderness Neurological/Psych: Other (awake, alert) ED Course And Treatment - Laboratory Results Result Diagrams: 03/24/17 06:44 03/24/17 06:44 ECG: Interpreted By Me, Viewed By Me (sinus tachycardia 126 bpm, normal axis, T wave inversions V4-V6) ECG Interpretation: Abnormal O2 Sat by Pulse Oximetry: 98 (RA) Pulse Ox Interpretation: Normal - CT Scan/US CT CHEST Other Rad Studies (CT/US): Read By Radiologist, Radiology Report Reviewed CT/US Interpretation: Accession No. : [id number]. Patient Name / ID : CONSTANTINO LUNSFORD / [id number]. Exam Date : 03/21/2017 01:28:11 ( Approved ) . Study Comment : Sex / Age : M / 86Y. Creator : Sean Magallon MD. Dictator : Manager Cargo : Motor Scooter Repairer : Sean Magallon MD. Approver2 : Report Date : 03/21/2017 02:00:00. My Comment : . [facility] Division of Radiology. [address] [place] [address]. Tel. no. . . . Patient Name: JONN MEEKS SR . Pt. Address: [address] [place] [address]. Rec #: [id number]. [place] [address]: Helga Dempsey DO Pt Order Location: [facility] : 1930 Male Age: 86 Order #: [id number]. Reason for exam: RIGHT CHEST PNEUMONIA VS TB. . . . . . CT Scan. . . CHEST W/O CONTRAST Exam Date: 03/21/17. . This imaging exam was performed at [facility]. EXAM: CT Chest Without Intravenous Contrast. . CLINICAL HISTORY: 86 years old, male; Pain; Chest pain; Type not specified; Additional info: Right chest pneumonia vs tb. . TECHNIQUE: Axial computed tomography images of the chest without intravenous contrast. All CT scans at this facility use one or more dose reduction techniques, viz.: automated exposure control; ma/kV adjustment per patient size (including. targeted exams where dose is matched to indication ; i.e. head); or iterative. reconstruction technique. Coronal and sagittal reformatted images were created and reviewed. . COMPARISON: No relevant prior studies available. . FINDINGS: Limitations: Motion artifact - mild. Streak artifact - mild. Lack of. intravenous contrast. Lungs: Mild emphysematous changes. Mild dependent/peripheral. atelectasis/scarring. Few minimal groundglass opacities within upper lobes. No consolidation. Pleural space: No pneumothorax. No significant effusion. Heart: Borderline cardiomegaly. No significant pericardial effusion. Coronary artery calcifications. Thyroid: Mild heterogeneity. Bones/joints: No acute fracture. Soft tissues: Unremarkable. Vasculature: Moderate atherosclerotic disease. No aneurysm. Lymph nodes: No pathologically enlarged lymph nodes. Gallbladder and bile ducts: Calcified gallstones. Adrenals: Mild hypertrophy of adrenal glands. Kidneys and ureters: Few probable renal cysts. . IMPRESSION: 1. Groundglass opacities, nonspecific. 2. Emphysema. 3. Heterogeneous thyroid. Followup as clinically warranted. 4. Incidental/non- acute findings are described above. . Dictated By: Sean Magallon MD. Dictated Date/Time: 03/21/17199. Signed By: Sean Magallon MD. Date Signed : 03/21/17199. Transcribed By: [facility]. Transcribe Date/Time: 03/21/17199. ACYP02/MT Progress Note: Blood work, CT chest, UA ordered and reviewed. Patient given IV NS bolus, AR tylenol. CT scan chest (-) for infiltrate as per radioligist, however on my review there appears to be small right upper lobe nodule vs infiltrate (does not appear granulomatous). Patient febrile, suspect pneumonia - will treat with antibiotics. 3:00am- Nurse called [facility], they state patient was supposed to be started on IV rocephin 2 days ago in for suspected pneumonia, however they were unable to obtain IV access. No PO antibiotics were started. CXR done showed right upper lobe PNA vs TB. Attempts at PPD placement were made at [facility] on 03/18 and 03/19, however they state "patient refused". - Physician Consult Information Physician Contacted: Carolann Reynolds Outcome Of Conversation: Discussed patient with PMD, she agrees with admission for fever, leukocytosis, possible pneumonia, renal insufficiency. Disposition - Disposition Disposition: HOSPITALIZED Disposition Time: 05:35 Condition: STABLE - Clinical Impression Clinical Impression: Acute renal failure, Pneumonia, Leukocytosis Decision To Admit - Pt Status Changed To: Hospital Disposition Of: Inpatient - Admit Certification Admit to Inpatient:: After my assessment, the patient will require hospitalization for at least two midnights. This is because of the severity of symptoms shown, intensity of services needed, and/or the medical risk in this patient being treated as an outpatient. - InPatient: Physician Admission Certification:: see notes - . Bed Request Type: Regular Admitting Physician: Carolann Reynolds Patient Diagnosis: Pneumonia, Acute renal failure, Leukocytosis
[2017-03-21] MEDS ORDERED: Sodium Chloride 0.9% 500 ML IV ONE (05:37)
[2017-03-21] MEDS ORDERED: Alum-Mag Hydrox-Simethicone Susp (30 mL) PO PRN (07:26)
[2017-03-21] MEDS: (Novolog) Insulin Aspart, Recombinant 100 u/ml 10 ml vial SC SCH ×4 (08:25→21:54)
[2017-03-21] MEDS ORDERED: Sodium Chloride 0.45% 1,000 ML IV ONE ×2 (08:52→20:18)
[2017-03-21] MEDS: Sodium Chloride 0.45% 1,000 ML IV SCH ×2 (09:15→20:16)
[2017-03-21] MEDS: Moxifloxacin IV 400mg/250ml NS 400 MG/250 ML BAG IVPB SCH (09:15)
[2017-03-21] MEDS ORDERED: Home Med 1 UNIT (Colchicine [Colchicine] 0.6 MG) PO SCH (10:00)
[2017-03-21] MEDS ORDERED: Ergocalciferol 50,000 Intl Units Cap PO SCH (10:00)
[2017-03-21] MEDS ORDERED: Cefepime 1 GM in Sodium Chloride 0.9% 50 ML IVPB SCH (10:00)
[2017-03-21] MEDS: Multiple Vitamins Tab PO SCH (10:15)
[2017-03-21] MEDS: Pantoprazole 40 mg EC Tab PO SCH (10:15)
[2017-03-21] MEDS: Cefepime 1 GM in Sodium Chloride 0.9% 100 ML IVPB SCH (12:05)
--- NOTE | 2017-03-21 12:28 | CARD ---
APPROVED REPORT EKG Measurement Heart [id number] <Conclusion> Sinus tachycardia with premature atrial complexes with aberrant conduction Nonspecific T wave abnormality Abnormal ECG
[2017-03-21] MEDS ORDERED: ZINC OXIDE 40% TOP SCH (14:00)
[2017-03-21 20:15] VITALS: RESP 20
[2017-03-21] MEDS: Zinc Oxide Topical 30 gm Tube TOP SCH (22:04)
--- NOTE | 2017-03-21 22:30 | CP.PCM.HP ---
History of Present Illness - History of Present Illness History of Present Illness: An 86 yr old male with hf of HTN,DM, BPH, hemorrhagic CVA, foot drop, wheel chair bound, UTI on last admission with ARF s\p benitez in situ sent from [place] for abnormal CXR. ALSO he had low garde fever,unable to get access due to patient refusing IV access. sitting in bed, son at bed side .denies any complaints, having meal. when ask questions, states he knows where he is, who I am[usual to patient] in humerous way. notes to he is pain when try to move his ankles and legs. Present on Admission - Present on Admission Any Indicators Present on Admission: No Review of Systems - Constitutional Constitutional: Snoring. absent: Anorexia, Chills, Frequent Falls, Headache, Night Sweats - EENT Eyes: absent: Photophobia Nose/Mouth/Throat: absent: Nasal Discharge, Post Nasal Drip, Hoarsness, Sore Throat - Cardiovascular Cardiovascular: absent: Chest Pain, Chest Pain at Rest, Dyspnea, Leg Edema, Palpitations, Paroxysmal Nocturnal Dyspnea - Respiratory Respiratory: absent: Cough, Dyspnea, Wheezing, Chest Congestion - Gastrointestinal Gastrointestinal: absent: Dyspepsia, Heartburn, Nausea, Vomiting - Genitourinary Genitourinary: Difficulty Urinating, Freq UTI. absent: Hematuria - Musculoskeletal Musculoskeletal: Arthralgias, Back Pain, Deformity, Stiffness - Neurological Neurological: absent: Focal Weakness, Headaches - Psychiatric Psychiatric: absent: Hallucinations - Endocrine Endocrine: Polyphagia. absent: Fatigue - Hematologic/Lymphatic Hematologic: absent: Lymphadenopathy Past Patient History - Past Medical History & Family History Past Medical History?: Yes - Past Social History Smoking Status: Former Smoker - CARDIAC Hx Hypertension: Yes - PULMONARY Hx Bronchitis: No - NEUROLOGICAL Hx Dementia: No Hx Multiple Sclerosis: No Hx Parkinson's Disease: No Hx Seizures: No Hx Transient Ischemic Attacks (TIA): No - HEENT Hx HEENT Problems: No Hx Blind: No Hx Cataracts: No Hx Deafness: No Hx Difficulty Chewing: No Hx Epistaxis: No Hx Glaucoma: No Hx Macular Degeneration: No - RENAL Hx Chronic Kidney Disease: No - ENDOCRINE/METABOLIC Hx Hyperthyroidism: No Hx Hypothyroidism: No - HEMATOLOGICAL/ONCOLOGICAL Hx Sickle Cell Disease: No - INTEGUMENTARY Hx Dermatological Problems: No Hx Basil Cell: No Hx Hernández: No Hx Cellulitis: No Hx Eczema: No Hx Melanoma: No Hx Psoriasis: No Hx Squamous Cell: No - MUSCULOSKELETAL/RHEUMATOLOGICAL Hx Arthritis: Yes (Gout) - GASTROINTESTINAL Hx Diverticulitis: Yes - GENITOURINARY/GYNECOLOGICAL Hx Sexually Transmitted Disorders: No - PSYCHIATRIC Hx Bipolar Disorder: No Hx Substance Use: No - SURGICAL HISTORY Hx Appendectomy: No Hx Carotid Endarterectomy: No Hx Cholecystectomy: No Hx Coronary Artery Bypass Graft: No Hx Coronary Stent: No Hx Tonsillectomy: No - ANESTHESIA Hx Anesthesia: Yes Hx Anesthesia Reactions: No Hx Malignant Hyperthermia: No Meds Home Medications: Home Medication List Medication Instructions Recorded Confirmed Type Colchicine 0.6 mg PO DAILY PRN #30 03/24/17 03/21/17 Rx Allergies/Adverse Reactions: Allergies Allergy/AdvReac Type Severity Reaction Status Date / Time No Known Allergies Allergy Verified 03/09/17 22:36 Physical Exam - Constitutional Appears: Well, Confused - Head Exam Head Exam: ATRAUMATIC, NORMAL INSPECTION, NORMOCEPHALIC - Eye Exam Eye Exam: EOMI, PERRL - ENT Exam ENT Exam: Mucous Membranes Dry - Respiratory Exam Respiratory Exam: Clear to Auscultation Bilateral, Rales (b\l LL), NORMAL BREATHING PATTERN. absent: Accessory Muscle Use Additional comments: B\Lb\l LL ll - Cardiovascular Exam Cardiovascular Exam: Tachycardia, REGULAR RHYTHM, +S1, +S2, Systolic Murmur. absent: Gallop - GI/Abdominal Exam GI & Abdominal Exam: Normal Bowel Sounds, Soft. absent: Distended, Hernia, Mass , Tenderness - Neurological Exam Neurological exam: Alert, Altered, CN II-XII Intact Additional comments: wheel chair bound AAO-1-2 at base line - Psychiatric Exam Psychiatric exam: Normal Affect, Normal Mood - Skin Skin Exam: Dry, Intact, Petechiae - Additional Findings Additional findings: benitez-mild clody urine [clearing from before] Results - Vital Signs Recent Vital Signs: Last Vital Signs Temp 97.8 F 03/21/17 21:55 Pulse 78 03/21/17 21:55 Resp 20 03/21/17 21:55 BP 118/59 L 03/21/17 21:55 Pulse Ox 100 03/21/17 21:55 - Labs Result Diagrams: 03/24/17 06:44 03/24/17 06:44 Labs: Laboratory Results - last 24 hr 03/21/17 03/21/17 03/21/17 08:22 09:40 11:38 APTT 29 POC Glucose (mg/dL) 135 H 119 H 03/21/17 17:53 APTT POC Glucose (mg/dL) 120 H - EKG Data EKG Interpreted by: Myself EKG shows normal: Sinus rhythm Rate: Tachycardia - Imaging and Cardiology CT scan - chest Status: Report reviewed by me Assessment & Plan (1) Dehydration Status: Acute Comment: IVF. diet as tolearted. monitor CMP (2) Acute renal failure Status: Acute Comment: monitor cr. continue ivf. acute on CRF (3) Urinary tract infection Status: Acute Comment: rpeat UA and urine c\s. add cefipyme and rcephib. unlikley sepsis. f \u c\s. needs out patient urology f\u (4) Gout Assessment and Plan: possible gout exa with underlying ARF colchine PRN with allopurionol Status: Chronic (5) Type 2 diabetes mellitus without complications Status: Chronic Comment: moniotr accuchecks. last [id number] (6) Fever Status: Acute Comment: low grade with mild leukocytosis. gorman c\s. continue abx. abnorma CXR- CT positie for pneumonitis pic , no infiltarte. cont emepric abx Decision To Admit - Pt Status Changed To: Hospital Disposition Of: Inpatient - Admit Certification Admit to Inpatient:: After my assessment, the patient will require hospitalization for at least two midnights. This is because of the severity of symptoms shown, intensity of services needed, and/or the medical risk in this patient being treated as an outpatient. - InPatient: Physician Admission Certification:: as above - . Bed Request Type: Telemetry Admitting Physician: Carolann Reynolds
[2017-03-22] MEDS: Cefepime 1 GM in Sodium Chloride 0.9% 100 ML IVPB SCH ×2 (00:59→12:30)
[2017-03-22] MEDS: Zinc Oxide Topical 30 gm Tube TOP SCH ×3 (06:24→22:30)
[2017-03-22] MEDS: Moxifloxacin IV 400mg/250ml NS 400 MG/250 ML BAG IVPB SCH (06:46)
[2017-03-22 07:01] LABS: BASO % 0.7 % (0.0-2.0); EOS # 0.1 K/uL (0.0-0.7); EOS % 2.1 % (0.0-4.0); HEMATOCRIT 25.1 % (35.0-51.0); LYMPH # 0.7 K/uL (1.0-4.3); LYMPH % 11.9 % (20.0-40.0); MEAN CELL VOLUME 80.6 fL (80.0-94.0); MEAN CORPUSCULAR HEMOGLOBIN 26.5 pg (27.0-31.0); MEAN CORPUSCULAR HGB CONC 32.9 g/dL (33.0-37.0); MEAN PLATELET VOLUME 9.5 fL (7.2-11.7); MONO # 0.4 K/uL (0.0-0.8); MONO % 6.7 % (0.0-10.0); RED CELL DISTRIBUTION WIDTH 16.4 % (11.5-14.5); WHITE BLOOD COUNT 6.3 K/uL (4.8-10.8)
[2017-03-22 07:57] LABS: THYROID STIMULATING HORMONE 1.86 mIU/L (0.46-4.68)
[2017-03-22] MEDS: (Novolog) Insulin Aspart, Recombinant 100 u/ml 10 ml vial SC SCH ×4 (08:00→22:31)
[2017-03-22 08:06] LABS: POTASSIUM 3.3 mmol/L (3.6-5.2)
[2017-03-22 08:08] LABS: ALB/GLOB RATIO 0.7 (1.0-2.1); BILIRUBIN,TOTAL 0.4 mg/dL (0.2-1.3); TOTAL PROTEIN 5.4 g/dL (6.3-8.3)
[2017-03-22 08:09] LABS: CALCIUM 8.4 mg/dl (8.6-10.4)
[2017-03-22] MEDS: Pantoprazole 40 mg EC Tab PO SCH (09:27)
[2017-03-22] MEDS: Multiple Vitamins Tab PO SCH (09:27)
[2017-03-22] MEDS: Sodium Chloride 0.45% 1,000 ML IV SCH ×2 (15:51→20:55)
[2017-03-22] MEDS ORDERED: Potassium Chloride 20 mEq ER Tab PO STA (16:50)
[2017-03-22] MEDS ORDERED: Potassium Chloride 20 mEq ER Tab PO ONE (22:00)
--- NOTE | 2017-03-23 00:07 | CP.PCM.PN ---
Subjective - Date & Time of Evaluation Date of Evaluation: 03/22/17 Time of Evaluation: 20:00 - Subjective Subjective: normalized WBC , still looks dry combative at times. trying pull catheter benitez - clear urine mild elevation of LFTS still has pain in legs c\s pending. Objective - Vital Signs/Intake and Output Vital Signs (last 24 hours): Temp Pulse Resp BP Pulse Ox 97.2 F L 96 H 20 128/69 99 03/22/17 16:00 03/22/17 16:00 03/22/17 16:00 03/22/17 16:00 03/22/17 16:00 Intake and Output: 03/22/17 03/23/17 18:59 06:59 Intake Total 1190 1240 Output Total 1200 2400 Balance -10 -1160 - Medications Medications: Current Medications Acetaminophen (Tylenol 650 Mg Supp) 650 mg [place] Q6 PRN PRN Reason: Fever >100.4 F Acetaminophen (Tylenol 325mg Tab) 650 mg PO Q4H PRN PRN Reason: Pain, Mild (1-3) Al Hydrox/Mg Hydrox/Simethicone (Maalox Plus 30 Ml) 30 ml PO Q4H PRN PRN Reason: Indigestion / Heartburn Allopurinol (Zyloprim) 100 mg PO DAILY [facility] Last Admin: 03/22/17 09:27 Dose: 100 mg Colchicine (Colocrys) 0.6 mg PO DAILY [facility] Last Admin: 03/22/17 09:27 Dose: 0.6 mg Ergocalciferol (Drisdol 50,000 Intl Units Cap) 1 cap PO QWK [facility] Last Admin: 03/21/17 10:15 Dose: 1 cap Heparin Sodium (Porcine) (Heparin) 5,000 units SC Q8 [facility] Last Admin: 03/22/17 22:30 Dose: 5,000 units Sodium Chloride (Sodium Chloride 0.45%) 1,000 mls @ 80 mls/hr IV .[id number] [facility] Last Admin: 03/22/17 20:55 Dose: Not Given Moxifloxacin HCl (Avelox Iv 400mg/250ml Ns) 400 mg in 250 mls @ 167 mls/hr IVPB Q24H [facility] Last Admin: 03/22/17 06:46 Dose: 167 mls/hr Cefepime HCl 1 gm/ Sodium (Chloride) 100 mls @ 200 mls/hr IVPB Q12H [facility] Last Admin: 03/22/17 12:30 Dose: 200 mls/hr Insulin Aspart (Novolog) 0 unit SC ACHS [facility] PRN Reason: Protocol Last Admin: 03/22/17 22:31 Dose: Not Given Multivitamins (Hexavitamin) 1 tab PO DAILY [facility] Last Admin: 03/22/17 09:27 Dose: 1 tab Pantoprazole Sodium (Protonix Ec Tab) 40 mg PO DAILY [facility] Last Admin: 03/22/17 09:27 Dose: 40 mg Petrolatum (Desitin Original) 0 gm TOP QSHIFT [facility] Last Admin: 03/22/17 22:30 Dose: 1 oz Rosuvastatin Calcium (Crestor) 5 mg PO HS [facility] Last Admin: 03/22/17 22:29 Dose: 5 mg Sitagliptin Phosphate (Januvia) 25 mg PO DAILY [facility] Last Admin: 03/22/17 09:27 Dose: 25 mg Tamsulosin HCl (Flomax) 0.[address] [facility] Last Admin: 03/22/17 22:31 Dose: 0.4 mg - Labs Labs: 03/22/17 06:39 03/22/17 06:39 APTT 29 SECONDS (21-34) 03/21/17 09:40 - Additional Findings Additional findings: - Constitutional Appears: Well, Confused - Head Exam Head Exam: ATRAUMATIC, NORMAL INSPECTION, NORMOCEPHALIC - Eye Exam Eye Exam: EOMI, PERRL - ENT Exam ENT Exam: Mucous Membranes Dry - Respiratory Exam Respiratory Exam: Clear to Auscultation Bilateral, Rales (b\l LL), NORMAL BREATHING PATTERN. absent: Accessory Muscle Use Additional comments: B\L LL - Cardiovascular Exam Cardiovascular Exam: Tachycardia, REGULAR RHYTHM, +S1, +S2, Systolic Murmur. absent: Gallop - GI/Abdominal Exam GI & Abdominal Exam: Normal Bowel Sounds, Soft. absent: Distended, Hernia, Mass , Tenderness - Neurological Exam Neurological exam: Alert, Altered, CN II-XII Intact Additional comments: wheel chair bound AAO-1-2 at base line - Psychiatric Exam Psychiatric exam: Normal Affect, Normal Mood - Skin Skin Exam: Dry, Intact, Petechiae - Additional Findings Additional findings: benitez- cleaR URINE B\L aknles- b\l foot drop with erythema of ankles medial side b\l Pulses- weak Assessment and Plan (1) Pneumonitis Status: Acute (2) Acute renal failure Status: Acute (3) Dehydration Status: Acute (4) UTI (urinary tract infection) Status: Acute (5) Gout Status: Acute - Assessment and Plan (Free Text) Plan: 1 continue IVF 2 CoNTINUE ABX 2. awiating for c\s 3. labs in am monitor LFTS 4continue other meds
[2017-03-23] MEDS: Cefepime 1 GM in Sodium Chloride 0.9% 100 ML IVPB SCH ×2 (00:51→11:26)
[2017-03-23] MEDS: Sodium Chloride 0.45% 1,000 ML IV SCH ×2 (05:48→21:52)
[2017-03-23 06:14] LABS: BASO # 0.1 K/uL (0.0-0.2); BASO % 0.9 % (0.0-2.0); EOS # 0.1 K/uL (0.0-0.7); EOS % 2.1 % (0.0-4.0); HEMATOCRIT 26.3 % (35.0-51.0); LYMPH # 0.9 K/uL (1.0-4.3); LYMPH % 15.2 % (20.0-40.0); MEAN CELL VOLUME 80.7 fL (80.0-94.0); MEAN CORPUSCULAR HEMOGLOBIN 26.7 pg (27.0-31.0); MEAN CORPUSCULAR HGB CONC 33.1 g/dL (33.0-37.0); MONO # 0.4 K/uL (0.0-0.8); MONO % 6.1 % (0.0-10.0); RED CELL DISTRIBUTION WIDTH 16.1 % (11.5-14.5); WHITE BLOOD COUNT 5.7 K/uL (4.8-10.8)
[2017-03-23] MEDS: Moxifloxacin IV 400mg/250ml NS 400 MG/250 ML BAG IVPB SCH (06:53)
[2017-03-23] MEDS: Zinc Oxide Topical 30 gm Tube TOP SCH ×3 (06:58→22:45)
[2017-03-23 07:17] LABS: POTASSIUM 4.3 mmol/L (3.6-5.2)
[2017-03-23 07:19] LABS: BILIRUBIN,TOTAL 0.4 mg/dL (0.2-1.3); TOTAL PROTEIN 5.6 g/dL (6.3-8.3)
[2017-03-23 07:21] LABS: CALCIUM 8.2 mg/dl (8.6-10.4)
[2017-03-23 07:35] LABS: ALB/GLOB RATIO 0.6 (1.0-2.1)
[2017-03-23 07:42] LABS: IRON 34 ug/dL (49-181)
[2017-03-23] MEDS: (Novolog) Insulin Aspart, Recombinant 100 u/ml 10 ml vial SC SCH ×4 (07:55→22:42)
[2017-03-23] MEDS: Pantoprazole 40 mg EC Tab PO SCH (09:31)
[2017-03-23] MEDS: Multiple Vitamins Tab PO SCH (09:31)
[2017-03-23] MEDS ORDERED: Potassium Chloride 20 mEq ER Tab PO ONE (18:00)
--- NOTE | 2017-03-23 22:41 | CP.PCM.PN ---
Subjective - Date & Time of Evaluation Date of Evaluation: 03/23/17 Time of Evaluation: 15:00 - Subjective Subjective: LFTS went up. no change in mentation. wbc-7.2, hb-8.7. sitting in bed eating lunch ginna is ok shouts beofre touch his legs c\s negative so far Objective - Vital Signs/Intake and Output Vital Signs (last 24 hours): Temp Pulse Resp BP Pulse Ox 98.0 F 95 H 20 137/73 100 03/23/17 20:00 03/23/17 20:00 03/23/17 20:00 03/23/17 20:00 03/23/17 20:00 Intake and Output: 03/23/17 03/24/17 18:59 06:59 Intake Total 1030 Output Total 1400 2200 Balance -370 -2200 - Medications Medications: Current Medications Acetaminophen (Tylenol 650 Mg Supp) 650 mg [place] Q6 PRN PRN Reason: Fever >100.4 F Acetaminophen (Tylenol 325mg Tab) 650 mg PO Q4H PRN PRN Reason: Pain, Mild (1-3) Al Hydrox/Mg Hydrox/Simethicone (Maalox Plus 30 Ml) 30 ml PO Q4H PRN PRN Reason: Indigestion / Heartburn Allopurinol (Zyloprim) 100 mg PO DAILY [facility] Last Admin: 03/23/17 09:31 Dose: 100 mg Colchicine (Colocrys) 0.6 mg PO DAILY [facility] Last Admin: 03/23/17 09:31 Dose: 0.6 mg Ergocalciferol (Drisdol 50,000 Intl Units Cap) 1 cap PO QWK [facility] Last Admin: 03/21/17 10:15 Dose: 1 cap Heparin Sodium (Porcine) (Heparin) 5,000 units SC Q8 [facility] Last Admin: 03/23/17 14:44 Dose: 5,000 units Sodium Chloride (Sodium Chloride 0.45%) 1,000 mls @ 80 mls/hr IV .[id number] [facility] Last Admin: 03/23/17 05:48 Dose: 80 mls/hr Moxifloxacin HCl (Avelox Iv 400mg/250ml Ns) 400 mg in 250 mls @ 167 mls/hr IVPB Q24H [facility] Last Admin: 03/23/17 06:53 Dose: 167 mls/hr Cefepime HCl 1 gm/ Sodium (Chloride) 100 mls @ 200 mls/hr IVPB Q12H [facility] Last Admin: 03/23/17 11:26 Dose: 200 mls/hr Insulin Aspart (Novolog) 0 unit SC ACHS [facility] PRN Reason: Protocol Last Admin: 03/23/17 12:00 Dose: Not Given Multivitamins (Hexavitamin) 1 tab PO DAILY [facility] Last Admin: 03/23/17 09:31 Dose: 1 tab Pantoprazole Sodium (Protonix Ec Tab) 40 mg PO DAILY [facility] Last Admin: 03/23/17 09:31 Dose: 40 mg Petrolatum (Desitin Original) 0 gm TOP QSHIFT [facility] Last Admin: 03/23/17 14:45 Dose: 1 oz Rosuvastatin Calcium (Crestor) 5 mg PO [facility] Last Admin: 03/22/17 22:29 Dose: 5 mg Sitagliptin Phosphate (Januvia) 25 mg PO DAILY [facility] Last Admin: 03/23/17 09:31 Dose: 25 mg Tamsulosin HCl (Flomax) 0.4 mg PO [facility] Last Admin: 03/22/17 22:31 Dose: 0.4 mg - Labs Labs: 03/23/17 06:07 03/23/17 06:07 APTT 29 SECONDS (21-34) 03/21/17 09:40 - Additional Findings Additional findings: - Constitutional Appears: Well, Confused - Head Exam Head Exam: ATRAUMATIC, NORMAL INSPECTION, NORMOCEPHALIC - Eye Exam Eye Exam: EOMI, PERRL - ENT Exam ENT Exam: Mucous Membranes Dry - Respiratory Exam Respiratory Exam: Clear to Auscultation Bilateral, Rales (b\l LL), NORMAL BREATHING PATTERN. absent: Accessory Muscle Use Additional comments: B\L LL - Cardiovascular Exam Cardiovascular Exam: Tachycardia, REGULAR RHYTHM, +S1, +S2, Systolic Murmur. absent: Gallop - GI/Abdominal Exam GI & Abdominal Exam: Normal Bowel Sounds, Soft. absent: Distended, Hernia, Mass , Tenderness - Neurological Exam Neurological exam: Alert, Altered, CN II-XII Intact Additional comments: wheel chair bound AAO-1-2 at base line - Psychiatric Exam Psychiatric exam: Normal Affect, Normal Mood - Skin Skin Exam: Dry, Intact, Petechiae - Additional Findings Additional findings: benitez- cleaR URINE B\L aknles- b\l foot drop with erythema of ankles medial side Assessment and Plan (1) ARF (acute renal failure) Status: Acute (2) Dehydration Status: Acute (3) Fever Status: Acute (4) Gout Status: Acute (5) Hepatitis Status: Acute (6) Pneumonitis Status: Acute - Assessment and Plan (Free Text) Plan: continue abx ofr 5 days continue IVF monitor LFTS cause unclear drug induced clinically stable c\s negative will get abdominal u\s
[2017-03-24] MEDS: Cefepime 1 GM in Sodium Chloride 0.9% 100 ML IVPB SCH ×2 (00:07→12:30)
[2017-03-24] MEDS: Sodium Chloride 0.45% 1,000 ML IV SCH (00:43)
[2017-03-24] MEDS: Moxifloxacin IV 400mg/250ml NS 400 MG/250 ML BAG IVPB SCH (06:32)
[2017-03-24] MEDS: Zinc Oxide Topical 30 gm Tube TOP SCH ×2 (06:33→13:09)
[2017-03-24 06:54] LABS: BASO # 0.1 K/uL (0.0-0.2); BASO % 0.8 % (0.0-2.0); EOS # 0.1 K/uL (0.0-0.7); EOS % 1.7 % (0.0-4.0); HEMATOCRIT 27.6 % (35.0-51.0); LYMPH # 0.9 K/uL (1.0-4.3); LYMPH % 13.5 % (20.0-40.0); MEAN CELL VOLUME 80.1 fL (80.0-94.0); MEAN CORPUSCULAR HGB CONC 33.7 g/dL (33.0-37.0); MEAN PLATELET VOLUME 9.4 fL (7.2-11.7); MONO # 0.5 K/uL (0.0-0.8); MONO % 7.9 % (0.0-10.0); RED CELL DISTRIBUTION WIDTH 17.4 % (11.5-14.5); WHITE BLOOD COUNT 6.3 K/uL (4.8-10.8)
[2017-03-24] MEDS: (Novolog) Insulin Aspart, Recombinant 100 u/ml 10 ml vial SC SCH ×3 (07:24→16:58)
[2017-03-24 07:38] LABS: POTASSIUM 4.4 mmol/L (3.6-5.2)
[2017-03-24 07:40] LABS: ALB/GLOB RATIO 0.7 (1.0-2.1); BILIRUBIN,TOTAL 0.6 mg/dL (0.2-1.3); TOTAL PROTEIN 6.1 g/dL (6.3-8.3)
[2017-03-24 07:41] LABS: CALCIUM 8.7 mg/dl (8.6-10.4)
--- NOTE | 2017-03-24 10:32 | US ---
HISTORY: high LFTS COMPARISON: Abdomen ultrasound performed 03/14/17 TECHNIQUE: Sonographic evaluation of the abdomen. FINDINGS: LIVER: Measures 14.6 cm in sagittal dimension. Echogenic liver may be seen in setting of hepatic parenchymal disease or fatty infiltration. No focal hepatic mass identified. The main portal vein appears patent with normal directional flow. No intrahepatic bile duct dilatation. GALLBLADDER: Gallstones. No gallbladder wall thickening. Negative sonographic Hall's sign as assessed by the calcine furnace loader. COMMON BILE DUCT: Measures 4 mm. PANCREAS: Not well visualized. RIGHT KIDNEY: Measures 12.5 x 5.5 x 6.0cm. No obstructing calculus or hydronephrosis identified. 3.8 x 3.3 x 4.5 cm upper pole and 2.4 x 2.5 x 2.8 cm lower pole renal cysts. LEFT KIDNEY: Measures 12.9 x 6.6 x 6.8cm 5.1 x 3.7 x 3.3 cm and 1.3 x 1.3 x 1.5 cm lower pole renal cyst. Moderate left-sided hydronephrosis. The presence of the stent is questioned however appearance favored to reflect artifact rather than ureteral stent; correlate clinically. No obstructing calculus identified. SPLEEN: Measures approximately 13.5 cm. AORTA: Limited views appear unremarkable. IVC: Limited views appear unremarkable. OTHER FINDINGS: None. IMPRESSION: Echogenic liver may be seen in setting of hepatic parenchymal disease or fatty infiltration. Cholelithiasis. Bilateral renal cysts. Mild left renal hydronephrosis. The presence of the stent is questioned however appearance favored to reflect artifact rather than ureteral stent; correlate clinically.
[2017-03-24] MEDS: Multiple Vitamins Tab PO SCH (10:45)
[2017-03-24] MEDS: Pantoprazole 40 mg EC Tab PO SCH (10:45)
[2017-03-24 13:12] LABS: URIC ACID 4.2 mg/dL (3.5-8.5)
--- NOTE | 2017-03-24 16:01 | CP.PCM.PN ---
Subjective - Date & Time of Evaluation Date of Evaluation: 03/24/17 Time of Evaluation: 12:00 - Subjective Subjective: Pt seen today , awake, alert, comfortable, denies any chest pain, sob, abdominal pain , N/V/D a febrile Liver function improved - bun/cr- improved - cr-1.5<2.1 Objective - Vital Signs/Intake and Output Vital Signs (last 24 hours): Temp Pulse Resp BP Pulse Ox 98.0 F 95 H 20 132/60 97 03/24/17 08:30 03/24/17 08:30 03/24/17 08:30 03/24/17 08:30 03/24/17 08:30 Intake and Output: 03/24/17 03/24/17 06:59 18:59 Output Total 3900 1200 Balance -3900 -1200 - Medications Medications: Current Medications Acetaminophen (Tylenol 650 Mg Supp) 650 mg [place] Q6 PRN PRN Reason: Fever >100.4 F Acetaminophen (Tylenol 325mg Tab) 650 mg PO Q4H PRN PRN Reason: Pain, Mild (1-3) Al Hydrox/Mg Hydrox/Simethicone (Maalox Plus 30 Ml) 30 ml PO Q4H PRN PRN Reason: Indigestion / Heartburn Allopurinol (Zyloprim) 100 mg PO DAILY [facility] Last Admin: 03/24/17 10:45 Dose: 100 mg Colchicine (Colocrys) 0.6 mg PO DAILY [facility] Last Admin: 03/24/17 10:45 Dose: 0.6 mg Ergocalciferol (Drisdol 50,000 Intl Units Cap) 1 cap PO QWK [facility] Last Admin: 03/21/17 10:15 Dose: 1 cap Moxifloxacin HCl (Avelox Iv 400mg/250ml Ns) 400 mg in 250 mls @ 167 mls/hr IVPB Q24H [facility] Last Admin: 03/24/17 06:32 Dose: 167 mls/hr Cefepime HCl 1 gm/ Sodium (Chloride) 100 mls @ 200 mls/hr IVPB Q12H [facility] Last Admin: 03/24/17 12:30 Dose: 200 mls/hr Insulin Aspart (Novolog) 0 unit SC ACHS [facility] PRN Reason: Protocol Last Admin: 03/24/17 12:23 Dose: Not Given Multivitamins (Hexavitamin) 1 tab PO DAILY [facility] Last Admin: 03/24/17 10:45 Dose: 1 tab Pantoprazole Sodium (Protonix Ec Tab) 40 mg PO DAILY [facility] Last Admin: 03/24/17 10:45 Dose: 40 mg Petrolatum (Desitin Original) 0 gm TOP QSHIFT [facility] Last Admin: 03/24/17 13:09 Dose: 1 oz Rosuvastatin Calcium (Crestor) 5 mg PO HS [facility] Last Admin: 03/23/17 22:44 Dose: 5 mg Sitagliptin Phosphate (Januvia) 25 mg PO DAILY [facility] Last Admin: 03/24/17 10:45 Dose: 25 mg Tamsulosin HCl (Flomax) 0.4 mg PO HS [facility] Last Admin: 03/23/17 22:44 Dose: 0.4 mg - Labs Labs: 03/24/17 06:44 03/24/17 06:44 APTT 29 SECONDS (21-34) 03/21/17 09:40 - Constitutional Appears: Well, No Acute Distress - Respiratory Exam Respiratory Exam: Clear to Ausculation Bilateral, NORMAL BREATHING PATTERN - Neurological Exam Neurological Exam: Alert, Awake Assessment and Plan - Assessment and Plan (Free Text) Assessment: A/P 86 yr old male admitted from [place] for fever and abnormal cxr blood culture- negative urine culture - negative Patient afebrile for [address] - chest -Groundglass opacities, nonspecific. Emphysema. D/W Dr. Chaudhry stable for discharge to [facility] today and Dr. Chaudhry will follow the patient at [facility] and repeat labs on sat.
[2017-03-24 16:59] VITALS: BP 118/69; TEMP 98.3
[2017-03-24 20:42] VITALS: PULSE 92
[2017-03-26 14:30] VITALS: O2SAT 98
--- NOTE | 2017-03-31 12:07 | CP.PCM.DIS ---
Provider - Provider Date of Admission: 03/21/17 07:22 Attending physician: Kelsie Jesus MD Time Spent in preparation of Discharge (in minutes): 30 Diagnosis - Discharge Diagnosis (1) ARF (acute renal failure) Status: Acute (2) Dehydration Status: Acute (3) Fever Status: Resolved (4) Gout Status: Acute (5) Hepatitis Status: Acute (6) Pneumonitis Status: Acute (7) Sepsis Status: Ruled-out Hospital Course - Lab Results Lab Results: Most Recent Lab Values WBC 6.3 K/uL (4.8-10.8) 03/24/17 06:44 RBC 3.45 Mil/uL (4.40-5.90) L 03/24/17 06:44 Hgb 9.3 g/dL (12.0-18.0) L 03/24/17 06:44 Hct 27.6 % (35.0-51.0) L 03/24/17 06:44 MCV 80.1 fL (80.0-94.0) 03/24/17 06:44 MCH 27.0 pg (27.0-31.0) 03/24/17 06:44 MCHC 33.7 g/dL (33.0-37.0) 03/24/17 06:44 RDW 17.4 % (11.5-14.5) H 03/24/17 06:44 Plt Count 199 K/uL (130-400) 03/24/17 06:44 MPV 9.4 fL (7.2-11.7) 03/24/17 06:44 Neut % (Auto) 76.1 % (50.0-75.0) H 03/24/17 06:44 Lymph % (Auto) 13.5 % (20.0-40.0) L 03/24/17 06:44 [place] % (Auto) 7.9 % (0.0-10.0) 03/24/17 06:44 Eos % (Auto) 1.7 % (0.0-4.0) 03/24/17 06:44 Baso % (Auto) 0.8 % (0.0-2.0) 03/24/17 06:44 Neut # 4.8 K/uL (1.8-7.0) 03/24/17 06:44 Lymph # 0.9 K/uL (1.0-4.3) L 03/24/17 06:44 [place] # 0.5 K/uL (0.0-0.8) 03/24/17 06:44 Eos # 0.1 K/uL (0.0-0.7) 03/24/17 06:44 Baso # 0.1 K/uL (0.0-0.2) 03/24/17 06:44 Neutrophils % (Manual) 86 % (50-75) H 03/21/17 01:07 Lymphocytes % (Manual) 8 % (20-40) L 03/21/17 01:07 Monocytes % (Manual) 6 % (0-10) 03/21/17 01:07 Platelet Estimate Normal (NORMAL) 03/21/17 01:07 APTT 29 SECONDS (21-34) 03/21/17 09:40 pO2 65 mm/Hg (30-55) H 03/21/17 01:07 VBG pH 7.46 (7.32-7.43) H 03/21/17 01:07 VBG pCO2 31 mmHg (40-60) L 03/21/17 01:07 VBG HCO3 24.1 mmol/L 03/21/17 01:07 VBG Total CO2 23.0 mmol/L (22-28) 03/21/17 01:07 VBG O2 Sat (Calc) 92.6 % (40-65) H 03/21/17 01:07 VBG Base Excess -0.9 mmol/L (0.0-2.0) L 03/21/17 01:07 VBG Potassium 4.4 mmol/L (3.6-5.2) 03/21/17 01:07 Sodium 135.0 mmol/l (132-148) 03/21/17 01:07 Chloride 102.0 mmol/L (98-107) 03/21/17 01:07 Glucose 153 mg/dl (75-110) H 03/21/17 01:07 Lactate 1.3 mmol/L (0.7-2.1) 03/21/17 01:07 Sodium 138 mmol/L (132-148) 03/24/17 06:44 Potassium 4.4 mmol/L (3.6-5.2) 03/24/17 06:44 Chloride 108 mmol/L (98-107) H 03/24/17 06:44 Carbon Dioxide 21 mmol/L (22-30) L 03/24/17 06:44 Anion Gap 13 (10-20) 03/24/17 06:44 BUN 22 mg/dL (9-20) H 03/24/17 06:44 Creatinine 1.5 MG/DL (0.8-1.5) 03/24/17 06:44 Est GFR ( Amer) 54 03/24/17 06:44 Est GFR (Non-Af Amer) 44 03/24/17 06:44 POC Glucose (mg/dL) 142 mg/dL (65-110) H 03/24/17 16:51 Random Glucose 124 mg/dL (75-110) H 03/24/17 06:44 Uric Acid 4.2 mg/dL (3.5-8.5) 03/24/17 06:44 Calcium 8.7 mg/dl (8.6-10.4) 03/24/17 06:44 Iron 34 ug/dL (49-181) L 03/23/17 06:07 TIBC 168 ug/dL (250-450) L 03/23/17 06:07 % Saturation 21 (20-55) 03/23/17 06:07 Ferritin 168.0 ng/mL 03/23/17 06:07 Total Bilirubin 0.6 mg/dL (0.2-1.3) 03/24/17 06:44 AST 53 U/L (17-59) 03/24/17 06:44 ALT 82 U/L (21-72) H 03/24/17 06:44 Alkaline Phosphatase 133 U/L (38-126) H 03/24/17 06:44 Total Protein 6.1 g/dL (6.3-8.3) L 03/24/17 06:44 Albumin 2.5 g/dL (3.5-5.0) L 03/24/17 06:44 Globulin 3.6 gm/dL (2.2-3.9) 03/24/17 06:44 Albumin/Globulin Ratio 0.7 (1.0-2.1) L 03/24/17 06:44 TSH 3rd Generation 1.86 mIU/L (0.46-4.68) 03/22/17 06:39 Venous Blood Potassium 4.4 mmol/L (3.6-5.2) 03/21/17 01:07 Urine Color Light red (YELLOW) 03/21/17 02:05 Urine Clarity Turbid (Clear) 03/21/17 02:05 Urine pH 5.0 (5.0-8.0) 03/21/17 02:05 Ur Specific [place] 1.012 (1.003-1.030) 03/21/17 02:05 Urine Protein 2+ mg/dL (NEGATIVE) H 03/21/17 02:05 Urine Glucose (UA) Negative mg/dL (Normal) 03/21/17 02:05 Urine Ketones Negative mg/dL (NEGATIVE) 03/21/17 02:05 Urine Blood 3+ (NEGATIVE) H 03/21/17 02:05 Urine Nitrate Negative (NEGATIVE) 03/21/17 02:05 Urine Bilirubin Negative (NEGATIVE) 03/21/17 02:05 Urine Urobilinogen Normal mg/dL (0.2-1.0) 03/21/17 02:05 Ur Leukocyte Esterase 2+ Gerda/uL (Negative) H 03/21/17 02:05 Urine WBC (Auto) 105 /hpf (0-5) H 03/21/17 02:05 Urine RBC (Auto) 364 /hpf (0-3) H 03/21/17 02:05 Ur Squamous Epith Cells 1 /hpf (0-5) 03/21/17 02:05 Urine Bacteria Occ (<OCC) H 03/21/17 02:05 Hyaline Casts >20 /lpf (0-2) H 03/21/17 02:05 - Hospital Course Hospital Course: uneventful abdominal u\s- mild- moderate left renal hydronephrosis needs urology f\u did get abx due to pateint combativeness in getting IV line\ did completes course of abx - will stop abx. LFTS-slowly trending down Discharge Exam - Head Exam Head Exam: ATRAUMATIC, NORMAL INSPECTION, NORMOCEPHALIC - Additional Findings Additional findings: - Constitutional Appears: Well, Confused - Head Exam Head Exam: ATRAUMATIC, NORMAL INSPECTION, NORMOCEPHALIC - Eye Exam Eye Exam: EOMI, PERRL - ENT Exam ENT Exam: Mucous Membranes Dry - Respiratory Exam Respiratory Exam: Clear to Auscultation Bilateral, Rales (b\l LL), NORMAL BREATHING PATTERN. absent: Accessory Muscle Use Additional comments: B\L LL - Cardiovascular Exam Cardiovascular Exam: Tachycardia, REGULAR RHYTHM, +S1, +S2, Systolic Murmur. absent: Gallop - GI/Abdominal Exam GI & Abdominal Exam: Normal Bowel Sounds, Soft. absent: Distended, Hernia, Mass , Tenderness - Neurological Exam Neurological exam: Alert, Altered, CN II-XII Intact Additional comments: wheel chair bound AAO-1-2 at base line - Psychiatric Exam Psychiatric exam: Normal Affect, Normal Mood - Skin Skin Exam: Dry, Intact, Petechiae - Additional Findings Additional findings: johnston- cleaR URINE B\L aknles- b\l foot drop with erythema of ankles medial side Discharge Plan - Follow Up Plan Condition: STABLE Disposition: TRANSF TO SNF Instructions: Urinary Tract Infection in Men (DC), Sepsis (GEN), Altered Mental Status (GEN), Pneumonia (DC) Additional Instructions: Please call Dr. Chaudhry upon patient arrival to the facility Continue medication as per Med. REc. PLEASE KEEP JOHNSTON CATH. UNTIL SEEN BY DR. FOUNTAIN PLEASE CALL DR. FOUNTAIN OFFICE FOR APPOINTMENT FOR CYSTO REPEAT CBC, CMP TUESDAY Referrals: Carolann Reynolds MD [Staff Provider] -
== END 2017-03-24 20:42 | DRG 195 ==
LOC: C.ER 23:46 → C.9E 03-21 07:22 → C.6T 03-21 21:40
PROVIDERS: ADMIT Internal Medicine; ATTEND Internal Medicine
DX: J18.9 Pneumonia, unspecified organism (principal); J43.9 Emphysema, unspecified; F03.90 Unspecified dementia, unspecified severity, without behavioral disturbance, psychotic disturbance, mood disturbance, and anxiety; E11.9 Type 2 diabetes mellitus without complications; M10.9 Gout, unspecified; E78.5 Hyperlipidemia, unspecified; N40.0 Benign prostatic hyperplasia without lower urinary tract symptoms; I10 Essential (primary) hypertension; B19.20 Unspecified viral hepatitis C without hepatic coma; R94.5 Abnormal results of liver function studies; Z79.4 Long term (current) use of insulin; Z87.891 Personal history of nicotine dependence; Z99.3 Dependence on wheelchair

== ENCOUNTER 2017-04-02 18:06 | Inpatient (IN) | payer MEDICARE, MEDICAID ==
[2017-04-02 18:26] VITALS: BMI 22.9
[2017-04-02 19:46] LABS: BASO # 0.1 K/uL (0.0-0.2); BASO % 0.4 % (0.0-2.0); EOS # 0.1 K/uL (0.0-0.7); EOS % 0.4 % (0.0-4.0); HEMATOCRIT 31.9 % (35.0-51.0); LYMPH % 7.7 % (20.0-40.0); MEAN CELL VOLUME 81.3 fL (80.0-94.0); MEAN CORPUSCULAR HEMOGLOBIN 26.5 pg (27.0-31.0); MEAN CORPUSCULAR HGB CONC 32.6 g/dL (33.0-37.0); MEAN PLATELET VOLUME 10.1 fL (7.2-11.7); MONO # 0.8 K/uL (0.0-0.8); MONO % 6.2 % (0.0-10.0); PLATELET COUNT 355 K/uL (130-400); RED CELL DISTRIBUTION WIDTH 16.4 % (11.5-14.5); WHITE BLOOD COUNT 13.5 K/uL (4.8-10.8)
[2017-04-02 19:53] LABS: INR 1.1; RBC URINE 7 /hpf (0-3); TRANSITIONAL EPITHIAL < 1 /hpf (0-3); URINE BACTERIA OCC (<OCC); URINE BILIRUBIN NEGATIVE (NEGATIVE); URINE BLOOD 1+ (NEGATIVE); URINE COLOR Yellow (YELLOW); URINE GLUCOSE (UA) NORMAL (Normal); URINE KETONE NEGATIVE (NEGATIVE); URINE LEUKOCYTE ESTERASE 1+ Leu/uL (Negative); URINE PROTEIN NEGATIVE (NEGATIVE); URINE UROBILINOGEN NORMAL mg/dL (0.2-1.0); WBC URINE 12 /hpf (0-5)
[2017-04-02 19:57] LABS: ALB/GLOB RATIO 0.7 (1.0-2.1); BILIRUBIN,TOTAL 0.9 mg/dL (0.2-1.3); CALCIUM 9.7 mg/dl (8.6-10.4); TOTAL PROTEIN 6.9 g/dL (6.3-8.3)
[2017-04-02 19:59] LABS: POTASSIUM 5.4 mmol/L (3.6-5.2)
[2017-04-02 20:09] LABS: TROPONIN I 0.025 ng/mL (0.00-0.120)
--- NOTE | 2017-04-02 20:21 | C.PDOC ---
History Of Present Illness 86 year old male who was referred from the residential for constant yelling due to pain. Patient was admitted twice last month for sepsis and renal insufficiency. Patient is contracted and demented; no injuries noted at this time. Time Seen by Provider: 04/02/17 18:22 Chief Complaint (Nursing): Hip Pain History Per: Patient History/Exam Limitations: no limitations Onset/Duration Of Symptoms: Hrs Current Symptoms Are (Timing): Still Present Recent travel outside of the [place]: No Past Medical History Reviewed: Historical Data, Nursing Documentation, Vital Signs Vital Signs: Last Vital Signs Temp 97.9 F 04/02/17 18:21 Pulse 112 H 04/02/17 19:21 Resp 19 04/02/17 19:21 BP 118/58 L 04/02/17 19:21 Pulse Ox 96 04/02/17 20:41 - Medical History PMH: Arthritis (Gout), Diverticulitis, HTN Surgical History: No Surg Hx - [facility] Procedures APPLICATION OF SPLINT (08/07/13) EXCISION OF TOE NAIL, EXTERNAL APPROACH (10/20/15) Family History: States: Unknown Family Hx - Social History Hx Alcohol Use: No Hx Substance Use: No - Immunization History Hx Pneumococcal Vaccination: (unknown) Review Of Systems Review Of Systems: ROS cannot be obtained secondary to pt's inabilty to answer questions. (Due to dementia) Physical Exam - Physical Exam Appears: Non-toxic, Confused, Other (Yelling, purposefully pinching people) Skin: Normal Color, Warm, Dry Head: Atraumatic, Normacephalic Oral Mucosa: Moist Chest: Symmetrical, No Tenderness Cardiovascular: Rhythm Regular, No Murmur Respiratory: Normal Breath Sounds, No Rales, No Rhonchi, No Wheezing Gastrointestinal/Abdominal: Soft, No Tenderness Extremity: No Pedal Edema, Other (Bilateral lower extremities contracted) Neurological/Psych: Oriented x3, Normal Speech, Normal Cognition ED Course And Treatment - Laboratory Results Result Diagrams: 04/02/17 19:43 04/02/17 19:43 ECG: Interpreted By Me, Viewed By Me ECG Rhythm: Sinus Tachycardia Rate From EC O2 Sat by Pulse Oximetry: 96 (Room air) Pulse Ox Interpretation: Normal - Radiology CXR: Interpreted by Me CXR Interpretation: Yes: No Acute Disease Progress Note: EKG, blood work, and CXR ordered. Ativan administered. Vanco/ Zosyn empirically for ? source Reevaluation Time: 20:40 Reassessment Condition: Improved - Physician Consult Information Outcome Of Conversation: 2030: d/w PMD, Dr. Jennifer mg to Admit Disposition Doctor Will See Patient In The: Hospital Counseled Patient/Family Regarding: Studies Performed, Diagnosis - Disposition Disposition: HOSPITALIZED Disposition Time: 20:41 Condition: FAIR - Clinical Impression Clinical Impression: Sepsis, Leg pain - Scribe Statement The provider has reviewed the documentation as recorded by the Scribsuzette Villagran All medical record entries made by the Darrianibsuzette were at my direction and personally dictated by me. I have reviewed the chart and agree that the record accurately reflects my personal performance of the history, physical exam, medical decision making, and the department course for this patient. I have also personally directed, reviewed, and agree with the discharge instructions and disposition.
[2017-04-02] MEDS ORDERED: Piperacillin/Tazobact 3.375 gm 100 ML IV STA (20:32)
[2017-04-02] MEDS ORDERED: Vancomycin 1 GM 1 GM/250 ML BAG IV STA (20:36)
[2017-04-02] MEDS ORDERED: Vancomycin 1 GM 1 GM/250 ML BAG IVPB ONE (20:49)
[2017-04-02] MEDS ORDERED: Piperacillin/Tazobact 3.375 gm 100 ML IVPB ONE (20:49)
[2017-04-02 21:05] LABS: NEUTROPHIL 92 % (50-75); TOTAL CELLS COUNTED 100
[2017-04-03] MEDS: Piperacillin/Tazobact 3.375 GM in Sodium Chloride 100 ML IVPB SCH ×3 (05:15→21:11)
--- NOTE | 2017-04-03 08:15 | RAD ---
PROCEDURE: CHEST RADIOGRAPH, 1 VIEW HISTORY: SOB COMPARISON: Portable chest 03/09/2017. FINDINGS: LUNGS: The visualized lung lee reveal no infiltrate bilaterally however the lateral left base is been cough in part. Skin folds are identified at the right chest. PLEURA: No definitive pneumothorax or pleural effusion is appreciated however the left costophrenic sulcus is been excluded from the left base laterally. CARDIOVASCULAR: Normal. OSSEOUS STRUCTURES: No significant abnormalities. VISUALIZED UPPER ABDOMEN: Normal. OTHER FINDINGS: None. IMPRESSION: No definite acute infiltrate or prominent pleural effusion. Left base been cough at the lateral segment. No definitive significant interval change compared 03/09/2017 radiograph. Repeat chest radiograph recommended.
[2017-04-03] MEDS: (Novolog) Insulin Aspart, Recombinant 100 u/ml 10 ml vial SC SCH ×5 (08:30→21:53)
--- NOTE | 2017-04-03 09:37 | CT ---
PROCEDURE: CT HEAD WITHOUT CONTRAST. HISTORY: dx sepsis COMPARISON: Prior head CT without contrast 03/09/2017. TECHNIQUE: Axial computed tomography images were obtained through the head/brain without intravenous contrast. Radiation dose: Total exam DLP = 1245 mGy-cm. This CT exam was performed using one or more of the following dose reduction techniques: Automated exposure control, adjustment of the mA and/or kV according to patient size, and/or use of iterative reconstruction technique. FINDINGS: HEMORRHAGE: No intracranial hemorrhage. BRAIN: There is no positive mass effect or definite interval cortical edema appreciated throughout. Cystic with some only cyst is identified in the bilateral occipital lobes greater the left and right sides and also affects the left parietal lobe status post prior chronic infarcts. Diffuse cerebral atrophy and chronic microangiopathy are reiterated. No suspicious extra-axial fluid collection is identified with the overall CT exam stable in the interval. VENTRICLES: Ex vacuo expansion of the left greater than right lateral ventricles is appreciated due to the aforementioned chronic infarcts. CALVARIUM: Unremarkable. PARANASAL SINUSES: Unremarkable as visualized. No significant inflammatory changes. MASTOID AIR CELLS: Unremarkable as visualized. No inflammatory changes. OTHER FINDINGS: None. IMPRESSION: Stable CT of the head without contrast including bilateral chronic lobar infarctions to greater the left parieto-occipital in right occipital distribution. Reiteration of chronic microangiopathy and diffuse cerebral atrophy compared to CT 03/09/2017. No acute intracranial hemorrhage or mass identified at this time.
[2017-04-03] MEDS ORDERED: Pantoprazole 40 mg EC Tab PO SCH (10:00)
[2017-04-03] MEDS ORDERED: Ergocalciferol 50,000 Intl Units Cap PO SCH (10:00)
[2017-04-03] MEDS: Pantoprazole 20 mg EC Tab PO SCH (10:37)
[2017-04-03] MEDS: Multiple Vitamins Tab PO SCH (10:37)
[2017-04-03 12:02] LABS: HEMATOCRIT 32.9 % (35.0-51.0); MEAN CELL VOLUME 82.2 fL (80.0-94.0); MEAN CORPUSCULAR HEMOGLOBIN 26.4 pg (27.0-31.0); MEAN CORPUSCULAR HGB CONC 32.1 g/dL (33.0-37.0); MEAN PLATELET VOLUME 10.9 fL (7.2-11.7); RED CELL DISTRIBUTION WIDTH 16.6 % (11.5-14.5); WHITE BLOOD COUNT 11.1 K/uL (4.8-10.8)
[2017-04-03 12:17] LABS: POTASSIUM 4.6 mmol/L (3.6-5.2)
[2017-04-03 12:19] LABS: BILIRUBIN,TOTAL 0.8 mg/dL (0.2-1.3)
[2017-04-03 12:20] LABS: ALB/GLOB RATIO 0.8 (1.0-2.1)
[2017-04-03] MEDS: Zinc Oxide Topical 30 gm Tube TOP SCH ×2 (14:20→21:52)
--- NOTE | 2017-04-03 14:48 | CP.PCM.CON ---
History of Present Illness - History of Present Illness History of Present Illness: 86 year old male who was referred from the [facility] for constant yelling due to pain. Patient was admitted twice last month for sepsis and renal insufficiency. Patient is contracted and demented; no injuries noted at this time. referred for id eval to r/o sepsis, UTI, abnormal LFT's Leukocytosis - Medical History PMH: Arthritis (Gout), Diverticulitis, HTN Surgical History: No Surg Hx Review of Systems - Review of Systems Systems not reviewed;Unavailable: Altered Mental Status - Constitutional Constitutional: As Per HPI - EENT Eyes: absent: As Per HPI, Blind Spots, Blurred Vision, Change in Vision, Decreased Night Vision, Diplopia, Discharge, Dry Eye, Exophthalmos, Floaters, Irritation, Itchy Eyes, Loss of Peripheral Vision, Pain, Photophobia, Requires Corrective Lenses, Sees Flashes, Spots in Vision, Tunnel Vision, Other Visual Disturbances, Loss of Vision, Other Ears: absent: As Per HPI, Decreased Hearing, Ear Discharge, Ear Pain, Tinnitus, Abnormal Hearing, Disequilibrium, Dizziness, Other Nose/Mouth/Throat: absent: As Per HPI, Epistaxis, Nasal Congestion, Nasal Discharge, Nasal Obstruction, Nasal Trauma, Nose Pain, Post Nasal Drip, Sinus Pain, Sinus Pressure, Bleeding Gums, Change in Voice, Dental Pain, Dry Mouth, Dysphagia, Halitosis, Hoarsness, Lip Swelling, Mouth Lesions, Mouth Pain, Odynophagia, Sore Throat, Throat Swelling, Tongue Swelling, Facial Pain, Neck Pain, Neck Mass, Other - Cardiovascular Cardiovascular: As Per HPI - Respiratory Respiratory: As Per HPI, Cough, Dyspnea - Gastrointestinal Gastrointestinal: absent: As Per HPI, Abdominal Pain, Belching, Bloating, Change in Bowel Habits, Change in Stool Character, Coffee Ground Emesis, Constipation, Cramping, Diarrhea, Dyspepsia, Dysphagia, Early Satiety, Excessive Flatus, Fecal Incontinence, Heartburn, Hematemesis, Hematochezia, Loose Stools, Melena, Nausea, Odynophagia, Temesmus, Vomiting, Other - Genitourinary Genitourinary: absent: As Per HPI, Change in Urinary Stream, Difficulty Urinating, Dysuria, Flank Pain, Hematuria, Pyuria, Nocturia, Urinary Incontinence, Urinary Frequency, Urinary Hesitance, Urinary Urgency, Voiding Freq/Small Amts, Freq UTI, Hx Renal/Bladder Calculi, Hx /Renal Surgery, Bladder Distension, Other - Reproductive: Male Reproductive:Male: As Per HPI - Musculoskeletal Musculoskeletal: As Per HPI, Deformity, Muscle Weakness - Integumentary Integumentary: absent: As Per HPI, Acne, Alopecia, Bleeding Lesions, Change in Hair, Change in Nails, Change in Pigmentation, Changing Lesions, Dry Skin, Erythema, Furuncle, Hirsutism, Lesions, New Lesions, Non-Healing Lesions, Photosensitivity, Pruritus, Rash, Skin Pain, Skin Ulcer, Sores, Striae, Swelling , Unusual Bruising, Wounds, Jaundice, Other - Neurological Neurological: As Per HPI, Abnormal Gait, Focal Weakness, Memory Loss - Psychiatric Psychiatric: absent: As Per HPI, Abnormal Sleep Pattern, Anhedonia, Anxiety, Auditory Hallucinations, Behavioral Changes, Change in Appetite, Change in Libido, Confusion, Depression, Difficulty Concentrating, Hallucinations, Homicidal Ideation, Hopelessness, Irritability, Memory Loss, Mood Swings, Panic Attacks, Paranoia, Suicidal Ideation, Visual Hallucinations, Tactile Hallucinations, Other - Endocrine Endocrine: absent: As Per HPI, Change in Body Appearance, Change in Libido, Cold Intolorance, Deepening of Voice, Excessive Sweating, Fatigue, Flushing, Heat Intolorance, Increase in Ring/Shoe/Hat Size, Palpitations, Polydipsia, Polyphagia, Polyuria, Other - Hematologic/Lymphatic Hematologic: absent: As Per HPI, Easy Bleeding, Easy Bruising, Lymphadenopathy, Other Past Patient History - Past Medical History & Family History Past Medical History?: Yes - Past Social History Smoking Status: Former Smoker - CARDIAC Hx Hypertension: Yes - PULMONARY Hx Asthma: No Hx Bronchitis: No Hx Chronic Obstructive Pulmonary Disease (COPD): No Hx Emphysema: No Hx Pneumonia: No Hx Pulmonary Embolism: No Hx Sleep Apnea: No - NEUROLOGICAL Hx Alzheimer's Disease: No Hx Dementia: No Hx Migraine: No Hx Multiple Sclerosis: No Hx Parkinson's Disease: No Hx Seizures: No Hx Transient Ischemic Attacks (TIA): No - HEENT Hx HEENT Problems: No Hx Blind: No Hx Cataracts: No Hx Deafness: No Hx Difficulty Chewing: No Hx Epistaxis: No Hx Glaucoma: No Hx Macular Degeneration: No - RENAL Hx Chronic Kidney Disease: No Hx Kidney Stones: No - ENDOCRINE/METABOLIC Hx Hyperthyroidism: No Hx Hypothyroidism: No - HEMATOLOGICAL/ONCOLOGICAL Hx Anemia: No Hx Human Immunodeficiency Virus (HIV): No Hx Sickle Cell Disease: No - INTEGUMENTARY Hx Dermatological Problems: No Hx Basil Cell: No Hx Hernández: No Hx Cellulitis: No Hx Eczema: No Hx Melanoma: No Hx Psoriasis: No Hx Squamous Cell: No - MUSCULOSKELETAL/RHEUMATOLOGICAL Hx Falls: No - GASTROINTESTINAL Hx Diverticulitis: Yes - GENITOURINARY/GYNECOLOGICAL Hx Sexually Transmitted Disorders: No - PSYCHIATRIC Hx Substance Use: No - SURGICAL HISTORY Hx Appendectomy: No Hx Carotid Endarterectomy: No Hx Cholecystectomy: No Hx Coronary Artery Bypass Graft: No Hx Coronary Stent: No Hx Tonsillectomy: No - ANESTHESIA Hx Anesthesia: Yes Hx Anesthesia Reactions: No Hx Malignant Hyperthermia: No Meds Allergies/Adverse Reactions: Allergies Allergy/AdvReac Type Severity Reaction Status Date / Time No Known Allergies Allergy Verified 04/02/17 18:32 - Medications Medications: Current Medications Allopurinol (Zyloprim) 100 mg PO DAILY [facility] Last Admin: 04/03/17 10:37 Dose: 100 mg Ergocalciferol (Drisdol 50,000 Intl Units Cap) 1 cap PO QWK [facility] Last Admin: 04/03/17 10:37 Dose: 1 cap Piperacillin Sod/Tazobactam (Sod 3.375 gm/ Sodium Chloride) 100 mls @ 200 mls/ hr IVPB Q8H [facility] Last Admin: 04/03/17 14:19 Dose: 200 mls/hr Vancomycin HCl 1 gm/ Sodium (Chloride) 250 mls @ 166.7 mls/hr IVPB Q24H [facility] Insulin Aspart (Novolog) 0 unit SC ACHS [facility] PRN Reason: Protocol Last Admin: 04/03/17 12:09 Dose: Not Given Multivitamins (Hexavitamin) 1 tab PO DAILY [facility] Last Admin: 04/03/17 10:37 Dose: 1 tab Pantoprazole Sodium (Protonix Ec Tab) 20 mg PO DAILY [facility] Last Admin: 04/03/17 10:37 Dose: 20 mg Petrolatum (Desitin Original) 0 gm TOP Q8 [facility] Last Admin: 04/03/17 14:20 Dose: 1 applic Rosuvastatin Calcium (Crestor) 5 mg PO HS [facility] Sitagliptin Phosphate (Januvia) 25 mg PO DAILY [facility] Last Admin: 04/03/17 10:37 Dose: 25 mg Tamsulosin HCl (Flomax) 0.4 mg PO HS [facility] Physical Exam - Constitutional Appears: Non-toxic, Cachectic, Chronically Ill - Head Exam Head Exam: NORMOCEPHALIC - Eye Exam Eye Exam: PERRL. absent: Scleral icterus - ENT Exam ENT Exam: Mucous Membranes Dry, Normal External Ear Exam, Normal Oropharynx - Neck Exam Neck exam: Negative for: Lymphadenopathy, Thyromegaly - Respiratory Exam Respiratory Exam: Decreased Breath Sounds, Rhonchi - Cardiovascular Exam Cardiovascular Exam: REGULAR RHYTHM, +S1, +S2 - GI/Abdominal Exam GI & Abdominal Exam: Diminished Bowel Sounds, Distended, Soft. absent: Guarding , Rebound, Rigid, Tenderness - Rectal Exam Rectal Exam: Deferred - Exam Exam: NORMAL INSPECTION - Extremities Exam Extremities exam: Positive for: pedal pulses present. Negative for: calf tenderness, pedal edema, tenderness - Back Exam Back exam: absent: CVA tenderness (L), CVA tenderness (R) - Neurological Exam Neurological exam: Alert, Altered, CN II-XII Intact - Psychiatric Exam Psychiatric exam: Depressed - Skin Skin Exam: Dry Additional comments: decubiti from [place] III- Results - Vital Signs Recent Vital Signs: Last Vital Signs Temp 97.7 F 04/03/17 08:58 Pulse 98 H 04/03/17 08:58 Resp 20 04/03/17 08:58 BP 94/51 L 04/03/17 08:58 Pulse Ox 96 04/03/17 08:58 - Labs Result Diagrams: 04/03/17 11:53 04/03/17 11:53 Labs: Laboratory Results - last 24 hr 04/03/17 04/03/17 04/03/17 06:10 11:47 11:53 WBC 11.1 H RBC 4.00 L Hgb 10.6 L Hct 32.9 L MCV 82.2 MCH 26.4 L MCHC 32.1 L RDW 16.6 H Plt Count 319 MPV 10.9 Sodium Potassium Chloride Carbon Dioxide Anion Gap BUN Creatinine Est GFR ( Amer) Est GFR (Non-Af Amer) POC Glucose (mg/dL) 167 H 133 H Random Glucose Calcium Total Bilirubin AST ALT Alkaline Phosphatase Total Creatine Kinase Total Protein Albumin Globulin Albumin/Globulin Ratio 04/03/17 11:53 WBC RBC Hgb Hct MCV MCH MCHC RDW Plt Count MPV Sodium 144 Potassium 4.6 Chloride 109 H Carbon Dioxide 23 Anion Gap 16 BUN 70 H Creatinine 1.6 H Est GFR ( Amer) 50 Est GFR (Non-Af Amer) 41 POC Glucose (mg/dL) Random Glucose 164 H Calcium 10.0 Total Bilirubin 0.8 AST 35 ALT 71 Alkaline Phosphatase 229 H Total Creatine Kinase 301 H Total Protein 7.0 Albumin 3.0 L Globulin 3.9 Albumin/Globulin Ratio 0.8 L Assessment & Plan (1) Sepsis Status: Acute (2) Decubitus ulcer, stage II Status: Acute (3) UTI (urinary tract infection) Status: Acute - Assessment and Plan (Free Text) Assessment: check cultures consider ct abd check cultures iv antibiotics wound care
[2017-04-03 19:54] LABS: ALB/GLOB RATIO 0.7 (1.0-2.1); BILIRUBIN,TOTAL 0.7 mg/dL (0.2-1.3); CALCIUM 10.1 mg/dl (8.6-10.4); MAGNESIUM 2.2 mg/dL (1.6-2.3); PHOSPHOROUS 3.9 mg/dL (2.5-4.5); POTASSIUM 4.4 mmol/L (3.6-5.2); TOTAL PROTEIN 6.5 g/dL (6.3-8.3)
[2017-04-03] MEDS: Linezolid 600 mg in D5W 300 ml 600 MG/300 ML BAG IVPB SCH (22:30)
--- NOTE | 2017-04-04 03:07 | CP.PCM.HP ---
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 patient is lethargic ,mumbles , benitez inplace with yellow urine no fever , N\V, diarrhea noted. labs- wbc-12, hb-8.4, cr-1.7 Present on Admission - Present on Admission Any Indicators Present on Admission: No Review of Systems - Review of Systems Systems not reviewed;Unavailable: Altered Mental Status - Constitutional Constitutional: absent: Chills, Fever - Cardiovascular Cardiovascular: Leg Edema, Palpitations. absent: Chest Pain, Dyspnea - Respiratory Respiratory: absent: Cough, Wheezing, Chest Congestion - Gastrointestinal Gastrointestinal: Constipation. absent: Nausea, Vomiting - Integumentary Integumentary: Sores - Neurological Neurological: absent: Headaches - Psychiatric Psychiatric: absent: Hallucinations - Hematologic/Lymphatic Hematologic: absent: Lymphadenopathy Past Patient History - Past Medical History & Family History Past Medical History?: Yes - Past Social History Smoking Status: Former Smoker - CARDIAC Hx Hypertension: Yes - PULMONARY Hx Asthma: No Hx Bronchitis: No Hx Chronic Obstructive Pulmonary Disease (COPD): No Hx Emphysema: No Hx Pneumonia: No Hx Pulmonary Embolism: No Hx Sleep Apnea: No - NEUROLOGICAL Hx Alzheimer's Disease: No Hx Dementia: No Hx Migraine: No Hx Multiple Sclerosis: No Hx Parkinson's Disease: No Hx Seizures: No Hx Transient Ischemic Attacks (TIA): No - HEENT Hx HEENT Problems: No Hx Blind: No Hx Cataracts: No Hx Deafness: No Hx Difficulty Chewing: No Hx Epistaxis: No Hx Glaucoma: No Hx Macular Degeneration: No - RENAL Hx Chronic Kidney Disease: No Hx Kidney Stones: No - ENDOCRINE/METABOLIC Hx Hyperthyroidism: No Hx Hypothyroidism: No - HEMATOLOGICAL/ONCOLOGICAL Hx Anemia: No Hx Human Immunodeficiency Virus (HIV): No Hx Sickle Cell Disease: No - INTEGUMENTARY Hx Dermatological Problems: No Hx Basil Cell: No Hx Hernández: No Hx Cellulitis: No Hx Eczema: No Hx Melanoma: No Hx Psoriasis: No Hx Squamous Cell: No - MUSCULOSKELETAL/RHEUMATOLOGICAL Hx Falls: No - GASTROINTESTINAL Hx Diverticulitis: Yes - GENITOURINARY/GYNECOLOGICAL Hx Sexually Transmitted Disorders: No - PSYCHIATRIC Hx Substance Use: No - SURGICAL HISTORY Hx Appendectomy: No Hx Carotid Endarterectomy: No Hx Cholecystectomy: No Hx Coronary Artery Bypass Graft: No Hx Coronary Stent: No Hx Tonsillectomy: No - ANESTHESIA Hx Anesthesia: Yes Hx Anesthesia Reactions: No Hx Malignant Hyperthermia: No Meds Allergies/Adverse Reactions: Allergies Allergy/AdvReac Type Severity Reaction Status Date / Time No Known Allergies Allergy Verified 04/02/17 18:32 Physical Exam - Constitutional Appears: No Acute Distress, Confused, Chronically Ill - Head Exam Head Exam: ATRAUMATIC, NORMAL INSPECTION, NORMOCEPHALIC - Eye Exam Eye Exam: Normal appearance, PERRL. absent: Scleral icterus - ENT Exam ENT Exam: Mucous Membranes Dry - Respiratory Exam Respiratory Exam: Clear to Auscultation Bilateral, Rhonchi, NORMAL BREATHING PATTERN. absent: Wheezes, Respiratory Distress - Cardiovascular Exam Cardiovascular Exam: REGULAR RHYTHM, +S1, +S2, Systolic Murmur - GI/Abdominal Exam GI & Abdominal Exam: Normal Bowel Sounds, Soft, Tenderness. absent: Mass - Extremities Exam Extremities exam: Positive for: pedal edema, pedal pulses present Additional comments: 1 + - Neurological Exam Additional comments: altered ,confused unable to answer questions - Skin Skin Exam: Petechiae Additional comments: aling skin lesions on legs noted, buttock one. Results - Vital Signs Recent Vital Signs: Last Vital Signs Temp 98.4 F 04/03/17 23:40 Pulse 114 H 04/03/17 23:40 Resp 20 04/03/17 23:40 BP 101/59 L 04/03/17 23:40 Pulse Ox 95 04/03/17 23:40 - Labs Result Diagrams: 04/06/17 02:55 04/07/17 11:38 Labs: Laboratory Results - last 24 hr 04/03/17 04/03/17 04/03/17 06:10 11:47 11:53 WBC 11.1 H RBC 4.00 L Hgb 10.6 L Hct 32.9 L MCV 82.2 MCH 26.4 L MCHC 32.1 L RDW 16.6 H Plt Count 319 MPV 10.9 Sodium Potassium Chloride Carbon Dioxide Anion Gap BUN Creatinine Est GFR ( Amer) Est GFR (Non-Af Amer) POC Glucose (mg/dL) 167 H 133 H Random Glucose Calcium Phosphorus Magnesium Total Bilirubin AST ALT Alkaline Phosphatase Total Creatine Kinase CK-MB (Mass) Troponin I, Quant Total Protein Albumin Globulin Albumin/Globulin Ratio 04/03/17 04/03/17 04/03/17 11:53 16:38 19:38 WBC RBC Hgb Hct MCV MCH MCHC RDW Plt Count MPV Sodium 144 142 Potassium 4.6 4.4 Chloride 109 H 106 Carbon Dioxide 23 23 Anion Gap 16 17 BUN 70 H 64 H Creatinine 1.6 H 1.8 H Est GFR ( Amer) 50 44 Est GFR (Non-Af Amer) 41 36 POC Glucose (mg/dL) 165 H Random Glucose 164 H 147 H Calcium 10.0 10.1 Phosphorus 3.9 Magnesium 2.2 Total Bilirubin 0.8 0.7 AST 35 28 ALT 71 61 Alkaline Phosphatase 229 H 204 H Total Creatine Kinase 301 H 199 H CK-MB (Mass) 2.08 Troponin I, Quant 0.0190 Total Protein 7.0 6.5 Albumin 3.0 L 2.6 L Globulin 3.9 3.9 Albumin/Globulin Ratio 0.8 L 0.7 L 04/03/17 20:50 WBC RBC Hgb Hct MCV MCH MCHC RDW Plt Count MPV Sodium Potassium Chloride Carbon Dioxide Anion Gap BUN Creatinine Est GFR ( Amer) Est GFR (Non-Af Amer) POC Glucose (mg/dL) 137 H Random Glucose Calcium Phosphorus Magnesium Total Bilirubin AST ALT Alkaline Phosphatase Total Creatine Kinase CK-MB (Mass) Troponin I, Quant Total Protein Albumin Globulin Albumin/Globulin Ratio - Imaging and Cardiology CT scan - head Status: Report reviewed by me Chest x-ray Status: Report reviewed by me Assessment & Plan (1) Altered mental state Assessment and Plan: cause unclear CT head neurochecks trops\ ekg labs d\w family Status: Acute (2) 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 This is because of the severity of symptoms shown, intensity of services needed, and/or the medical risk in this patient being treated as an outpatient. - InPatient: Physician Admission Certification:: as above - . Bed Request Type: Telemetry Admitting Physician: Carolann Reynolds
[2017-04-04] MEDS: Piperacillin/Tazobact 3.375 GM in Sodium Chloride 100 ML IVPB SCH ×3 (05:40→22:40)
[2017-04-04] MEDS: Zinc Oxide Topical 30 gm Tube TOP SCH ×3 (05:41→22:38)
[2017-04-04 07:25] LABS: BASO % 0.5 % (0.0-2.0); EOS # 0.1 K/uL (0.0-0.7); EOS % 0.6 % (0.0-4.0); LYMPH # 0.7 K/uL (1.0-4.3); LYMPH % 8.1 % (20.0-40.0); MEAN CELL VOLUME 81.2 fL (80.0-94.0); MEAN CORPUSCULAR HEMOGLOBIN 26.5 pg (27.0-31.0); MEAN CORPUSCULAR HGB CONC 32.6 g/dL (33.0-37.0); MEAN PLATELET VOLUME 9.8 fL (7.2-11.7); MONO # 0.7 K/uL (0.0-0.8); MONO % 7.5 % (0.0-10.0); PLATELET COUNT 291 K/uL (130-400); RED CELL DISTRIBUTION WIDTH 16.5 % (11.5-14.5); WHITE BLOOD COUNT 8.9 K/uL (4.8-10.8)
[2017-04-04 07:47] LABS: ALB/GLOB RATIO 0.6 (1.0-2.1); BILIRUBIN,TOTAL 0.6 mg/dL (0.2-1.3); CALCIUM 9.7 mg/dl (8.6-10.4); POTASSIUM 3.7 mmol/L (3.6-5.2); TOTAL PROTEIN 5.9 g/dL (6.3-8.3)
[2017-04-04] MEDS: (Novolog) Insulin Aspart, Recombinant 100 u/ml 10 ml vial SC SCH ×4 (08:23→22:33)
[2017-04-04 09:05] LABS: EOSINOPHIL 1 % (0-4); NEUTROPHIL 78 % (50-75); TOTAL CELLS COUNTED 100
[2017-04-04] MEDS: Pantoprazole 20 mg EC Tab PO SCH (09:43)
[2017-04-04] MEDS: Multiple Vitamins Tab PO SCH (09:43)
[2017-04-04] MEDS: Linezolid 600 mg in D5W 300 ml 600 MG/300 ML BAG IVPB SCH ×2 (13:46→22:41)
[2017-04-04] MEDS ORDERED: Dextrose 5%/0.9% NS 1,000 ML IV ONE (14:48)
--- NOTE | 2017-04-04 22:17 | CP.PCM.PN ---
Subjective - Date & Time of Evaluation Date of Evaluation: 04/04/17 - Subjective Subjective: blood c\s, urine c\s prelim report -No growth. echo-pending. episode of V-tach, EKG-supraventricular arrythemia cr-2.0. Objective - Vital Signs/Intake and Output Vital Signs (last 24 hours): Temp Pulse Resp BP Pulse Ox 98.1 F 99 H 20 96/56 L 95 04/04/17 15:00 04/04/17 15:00 04/04/17 15:00 04/04/17 15:00 04/04/17 07:05 Intake and Output: 04/04/17 04/05/17 18:59 06:59 Intake Total 680 Output Total 1400 400 Balance -720 -400 - Medications Medications: Current Medications Allopurinol (Zyloprim) 100 mg PO DAILY [facility] Last Admin: 04/04/17 09:43 Dose: 100 mg Ergocalciferol (Drisdol 50,000 Intl Units Cap) 1 cap PO QWK [facility] Last Admin: 04/03/17 10:37 Dose: 1 cap Piperacillin Sod/Tazobactam (Sod 3.375 gm/ Sodium Chloride) 100 mls @ 200 mls/ hr IVPB Q8H [facility] Last Admin: 04/04/17 14:10 Dose: 200 mls/hr Linezolid (Zyvox 600mg/300ml D5w) 600 mg in 300 mls @ 200 mls/hr IVPB Q12 [facility] Last Admin: 04/04/17 13:46 Dose: 200 mls/hr Dextrose/Sodium Chloride (Dextrose 5%/0.9% Ns 1000 Ml) 1,000 mls @ 50 mls/hr IV .Q20H ONE Stop: 04/05/17 10:47 Last Admin: 04/04/17 14:58 Dose: 50 mls/hr Insulin Aspart (Novolog) 0 unit SC ACHS [facility] PRN Reason: Protocol Last Admin: 04/04/17 12:18 Dose: 3 unit Multivitamins (Hexavitamin) 1 tab PO DAILY [facility] Last Admin: 04/04/17 09:43 Dose: 1 tab Pantoprazole Sodium (Protonix Ec Tab) 20 mg PO DAILY [facility] Last Admin: 04/04/17 09:43 Dose: 20 mg Petrolatum (Desitin Original) 0 gm TOP Q8 [facility] Last Admin: 04/04/17 13:46 Dose: 1 applic Rosuvastatin Calcium (Crestor) 5 mg PO HS [facility] Last Admin: 04/03/17 21:52 Dose: 5 mg Sitagliptin Phosphate (Januvia) 25 mg PO DAILY [facility] Last Admin: 04/04/17 09:43 Dose: 25 mg Tamsulosin HCl (Flomax) 0.4 mg PO HS [facility] Last Admin: 04/03/17 21:52 Dose: 0.4 mg - Labs Labs: 04/04/17 07:08 04/04/17 07:08 PT 12.6 SECONDS (9.7-12.2) H 04/02/17 19:43 INR 1.1 04/02/17 19:43 APTT 26 SECONDS (21-34) 04/02/17 19:43
[2017-04-04] MEDS: Sodium Chloride 0.9% 1,000 ML IV SCH (22:39)
--- NOTE | 2017-04-05 00:15 | CON ---
DATE: CARDIOLOGY CONSULTATION NOTE CHIEF COMPLAINT: I was asked to see the patient for nonsustained ventricular tachycardia. HISTORY OF PRESENT ILLNESS: The patient has dementia and no meaningfully history can be obtained from him. The patient does have diabetes and hypercholesterolemia who comes in with lethargy and altered mental status and has been treated for sepsis. PAST MEDICAL HISTORY: As above. PERSONAL HISTORY: Could not be obtained. FAMILY HISTORY: Could not be obtained. REVIEW OF SYSTEMS: Could not be obtained. PHYSICAL EXAMINATION: GENERAL: The patient is awake and not in any distress. VITAL SIGNS: Blood pressure of 101/60, pulse rate of 114 beats per minute and regular, respiratory rate of 18. NECK: No jugular venous distention. LUNGS: Diminished breath sounds bilaterally. CARDIOVASCULAR: S1 and S2 ejection systolic murmur. ABDOMEN: Soft. DIAGNOSTIC DATA: EKG shows normal sinus rhythm and no acute ST-T changes. On telemetry, the patient had a 5 beat run up non-sustained ventricular tachycardia. ASSESSMENT AND PLAN: Troponin is 0.0190, BUN is 64, and creatinine is 1.8. At this time, will get echocardiogram to assess left ventricular function. Based on that further recommendations can be made The patient's marginal blood pressure will avoid beta-blockers for now. Gerardo Mack MD
[2017-04-05] MEDS: Piperacillin/Tazobact 3.375 GM in Sodium Chloride 100 ML IVPB SCH ×3 (05:09→22:38)
[2017-04-05] MEDS: Zinc Oxide Topical 30 gm Tube TOP SCH ×3 (06:00→22:41)
[2017-04-05 08:09] LABS: BASO % 0.4 % (0.0-2.0); EOS # 0.1 K/uL (0.0-0.7); EOS % 1.4 % (0.0-4.0); HEMATOCRIT 27.2 % (35.0-51.0); LYMPH # 0.8 K/uL (1.0-4.3); MEAN CORPUSCULAR HEMOGLOBIN 26.5 pg (27.0-31.0); MEAN CORPUSCULAR HGB CONC 32.3 g/dL (33.0-37.0); MEAN PLATELET VOLUME 9.9 fL (7.2-11.7); MONO # 0.5 K/uL (0.0-0.8); MONO % 6.6 % (0.0-10.0); RED CELL DISTRIBUTION WIDTH 16.8 % (11.5-14.5); WHITE BLOOD COUNT 8.1 K/uL (4.8-10.8)
[2017-04-05] MEDS: (Novolog) Insulin Aspart, Recombinant 100 u/ml 10 ml vial SC SCH ×4 (08:12→22:42)
[2017-04-05 08:47] LABS: POTASSIUM 3.6 mmol/L (3.6-5.2)
[2017-04-05 08:49] LABS: ALB/GLOB RATIO 0.7 (1.0-2.1); BILIRUBIN,TOTAL 0.6 mg/dL (0.2-1.3); TOTAL PROTEIN 5.8 g/dL (6.3-8.3)
[2017-04-05 08:50] LABS: CALCIUM 9.3 mg/dl (8.6-10.4)
[2017-04-05 09:01] LABS: TROPONIN I 0.024 ng/mL (0.00-0.120)
[2017-04-05] MEDS: Multiple Vitamins Tab PO SCH (10:45)
[2017-04-05] MEDS: Linezolid 600 mg in D5W 300 ml 600 MG/300 ML BAG IVPB SCH ×2 (10:46→22:39)
[2017-04-05] MEDS: Sodium Chloride 0.9% 1,000 ML IV SCH ×3 (10:46→19:00)
[2017-04-05] MEDS: Pantoprazole 20 mg EC Tab PO SCH (10:49)
--- NOTE | 2017-04-05 13:39 | CP.PCM.PN ---
Subjective - Date & Time of Evaluation Date of Evaluation: 04/05/17 Time of Evaluation: 14:00 - Subjective Subjective: lethargic, not talking much all c\s -negative hb-8.8, cr-1.9, k-3.6 spoke to son [id number] events noted has have few runs of [id number], on IVF Objective - Vital Signs/Intake and Output Vital Signs (last 24 hours): Temp Pulse Resp BP Pulse Ox 98.1 F 102 H 18 117/72 98 04/05/17 08:00 04/05/17 08:00 04/05/17 08:00 04/05/17 08:00 04/05/17 08:00 Intake and Output: 04/05/17 04/05/17 06:59 18:59 Intake Total 650 800 Output Total 1000 Balance -350 800 - Medications Medications: Current Medications Allopurinol (Zyloprim) 100 mg PO DAILY [facility] Last Admin: 04/05/17 10:44 Dose: 100 mg Ergocalciferol (Drisdol 50,000 Intl Units Cap) 1 cap PO QWK [facility] Last Admin: 04/03/17 10:37 Dose: 1 cap Piperacillin Sod/Tazobactam (Sod 3.375 gm/ Sodium Chloride) 100 mls @ 200 mls/ hr IVPB Q8H [facility] Last Admin: 04/05/17 05:09 Dose: 200 mls/hr Linezolid (Zyvox 600mg/300ml D5w) 600 mg in 300 mls @ 200 mls/hr IVPB Q12 [facility] Last Admin: 04/05/17 10:46 Dose: 200 mls/hr Sodium Chloride (Sodium Chloride 0.9%) 1,000 mls @ 100 mls/hr IV .Q10H [facility] Last Admin: 04/05/17 10:46 Dose: Not Given Insulin Aspart (Novolog) 0 unit SC ACHS [facility] PRN Reason: Protocol Last Admin: 04/05/17 08:12 Dose: Not Given Multivitamins (Hexavitamin) 1 tab PO DAILY [facility] Last Admin: 04/05/17 10:45 Dose: 1 tab Pantoprazole Sodium (Protonix Ec Tab) 20 mg PO DAILY [facility] Last Admin: 04/05/17 10:49 Dose: 20 mg Petrolatum (Desitin Original) 0 gm TOP Q8 [facility] Last Admin: 04/05/17 06:00 Dose: 1 applic Rosuvastatin Calcium (Crestor) 5 mg PO HS [facility] Last Admin: 04/04/17 22:40 Dose: 5 mg Sitagliptin Phosphate (Januvia) 25 mg PO DAILY [facility] Last Admin: 04/05/17 10:44 Dose: 25 mg Tamsulosin HCl (Flomax) 0.4 mg PO HS [facility] Last Admin: 04/04/17 22:40 Dose: 0.4 mg - Labs Labs: 04/05/17 08:00 04/05/17 08:00 PT 12.6 SECONDS (9.7-12.2) H 04/02/17 19:43 INR 1.1 04/02/17 19:43 APTT 26 SECONDS (21-34) 04/02/17 19:43 - Additional Findings Additional findings: Constitutional Appears: No Acute Distress, Confused, Chronically Ill - Head Exam Head Exam: ATRAUMATIC, NORMAL INSPECTION, NORMOCEPHALIC - Eye Exam Eye Exam: Normal appearance, PERRL. absent: Scleral icterus - ENT Exam ENT Exam: Mucous Membranes Dry - Respiratory Exam Respiratory Exam: Clear to Auscultation Bilateral, Rhonchi, NORMAL BREATHING PATTERN. absent: Wheezes, Respiratory Distress - Cardiovascular Exam Cardiovascular Exam: REGULAR RHYTHM, +S1, +S2, Systolic Murmur - GI/Abdominal Exam GI & Abdominal Exam: Normal Bowel Sounds, Soft, Tenderness. absent: Mass - Extremities Exam Extremities exam: Positive for: pedal edema, pedal pulses present Additional comments: 1 + - Neurological Exam Additional comments: altered ,confused unable to answer questions - Skin Skin Exam: Petechiae Additional comments: Healing skin lesions on legs noted, buttock one. Assessment and Plan (1) Ventricular tachycardia Status: Acute (2) Altered mental state Status: Acute (3) Dehydration Status: Acute (4) Hypernatremia Status: Acute - Assessment and Plan (Free Text) Plan: IVF changed monitor NA ICU consult called due to declining condition cardiology consult called labs reviwed called son myke spoke to them in detail He needs more imaging and GI\ eval
[2017-04-05] MEDS: Potassium Chloride 20 mEq ER Tab PO SCH (14:10)
[2017-04-05 14:24] LABS: DRAW SITE VNOUS; VENOUS BLOOD GAS BASE EXCESS -2.4 mmol/L (0.0-2.0); VENOUS BLOOD GAS PCO2 45 mmHg (40-60); VENOUS BLOOD PH 7.33 (7.32-7.43)
--- NOTE | 2017-04-05 15:35 | RAD ---
HISTORY: constipation COMPARISON: No prior. FINDINGS: BOWEL: Nonobstructive/nonspecific bowel gas pattern is present. Air is seen throughout nondistended small and large bowel. BONES: Mild multilevel degenerative spondylosis of the lower thoracic and lumbar spine. . Mild joint space narrowing both hip joints. OTHER FINDINGS: None. IMPRESSION: No evidence of acute mechanical bowel obstruction.
[2017-04-06] MEDS ORDERED: Lactated Ringer's 500 ML IV ONE (01:37)
[2017-04-06 02:56] LABS: DRAW SITE VBG; VENOUS BLOOD GAS BASE EXCESS -3.2 mmol/L (0.0-2.0); VENOUS BLOOD GAS PCO2 29 mmHg (40-60); VENOUS BLOOD PH 7.44 (7.32-7.43)
[2017-04-06 03:01] LABS: BASO % 0.3 % (0.0-2.0); EOS # 0.1 K/uL (0.0-0.7); EOS % 1.3 % (0.0-4.0); HEMATOCRIT 26.8 % (35.0-51.0); LYMPH # 0.9 K/uL (1.0-4.3); LYMPH % 9.6 % (20.0-40.0); MEAN CORPUSCULAR HGB CONC 32.9 g/dL (33.0-37.0); MEAN PLATELET VOLUME 9.4 fL (7.2-11.7); MONO # 0.6 K/uL (0.0-0.8); MONO % 6.4 % (0.0-10.0); NRBC % 0.1 % (0.0-2.0); PLATELET COUNT 257 K/uL (130-400); RED CELL DISTRIBUTION WIDTH 16.6 % (11.5-14.5); WHITE BLOOD COUNT 9.1 K/uL (4.8-10.8)
[2017-04-06 03:51] LABS: CORTISOL AM 29.3 ug/dL (4.46-22.7); THYROID STIMULATING HORMONE 0.9 mIU/L (0.46-4.68)
[2017-04-06 04:06] LABS: EOSINOPHIL 1 % (0-4); NEUTROPHIL 85 % (50-75); TOTAL CELLS COUNTED 100
[2017-04-06] MEDS: Sodium Chloride 0.9% 1,000 ML IV SCH (04:51)
[2017-04-06] MEDS: Piperacillin/Tazobact 3.375 GM in Sodium Chloride 100 ML IVPB SCH ×2 (05:52→14:00)
[2017-04-06] MEDS: Zinc Oxide Topical 30 gm Tube TOP SCH ×3 (05:52→22:26)
[2017-04-06] MEDS: (Novolog) Insulin Aspart, Recombinant 100 u/ml 10 ml vial SC SCH ×4 (08:30→22:27)
[2017-04-06 08:49] LABS: CREATININE, RANDOM URINE 40.5 mg/dL
[2017-04-06] MEDS: Potassium Chloride 20 mEq ER Tab PO SCH (09:02)
[2017-04-06] MEDS: Multiple Vitamins Tab PO SCH (09:03)
[2017-04-06 09:35] LABS: ALB/GLOB RATIO 0.6 (1.0-2.1); BILIRUBIN,TOTAL 0.5 mg/dL (0.2-1.3); CALCIUM 9.9 mg/dl (8.6-10.4); POTASSIUM 4.2 mmol/L (3.6-5.2); TOTAL PROTEIN 5.9 g/dL (6.3-8.3)
[2017-04-06 09:47] LABS: TROPONIN I 0.022 ng/mL (0.00-0.120)
[2017-04-06] MEDS: Pantoprazole 20 mg EC Tab PO SCH (10:05)
--- NOTE | 2017-04-06 10:12 | RAD ---
HISTORY: cough COMPARISON: Chest 04/02/2017. FINDINGS: LUNGS: No active pulmonary disease. PLEURA: No significant pleural effusion identified, no pneumothorax apparent. CARDIOVASCULAR: Normal. OSSEOUS STRUCTURES: No significant abnormalities. VISUALIZED UPPER ABDOMEN: Normal. OTHER FINDINGS: None. IMPRESSION: No acute cardiopulmonary disease or significant interval change appreciated compared 04/02/2017 radiograph.
[2017-04-06] MEDS: Dextrose 5%/0.45% NS 1,000 ML IV SCH ×2 (10:55→22:25)
--- NOTE | 2017-04-06 10:55 | PCM.RRT ---
CYLINDER PRESS FEEDER Nurses Assessment New IV Insertion Tolerance: Good I.Reason for CYLINDER PRESS FEEDER - A) Acute Change in Patient: (Select all that apply): Acute change in SBP below Subjective: CYLINDER PRESS FEEDER was called at 01:15am for hypotension with BP 77/44, patient was completely asymptomatic and moderately agitated. Lactated Ringer's ordered, bloodwork, and urine test. PMD was notified by patient's nurse At the end of CYLINDER PRESS FEEDER, patient's BP: 91/47 and patient continued to remain asymptomatic - Neurological Status (Select all that apply): Alert, Responsive, Verbal, Aggressive - Constitutional Appears: No Acute Distress - Head Head Exam: ATRAUMATIC - Eyes Eye Exam: EOMI, Normal appearance (Patient was uncooperative for the rest of the physical exam and was mildly combative ) Plan - Assessment of Findings&Treatment Plan CYLINDER PRESS FEEDER called for hypotension, patient was given a lactate ringer Plans: PMD was notified F/u urine test and blood work
[2017-04-06] MEDS: Linezolid 600 mg in D5W 300 ml 600 MG/300 ML BAG IVPB SCH ×2 (12:04→22:24)
--- NOTE | 2017-04-06 13:17 | CP.PCM.CON ---
History of Present Illness - History of Present Illness History of Present Illness: Palliative consult Requested by Tammi MCGEE Reason; Goals of care discussion patient is a 86 yo man, admitted from [place] with complaints of uncontrolled pain. Upon admission the CXR, abdominal x Ray and CT head were negative acute findings. On 04/05/17 patient become severely Hypotenive BP 77/44, and rapid response was called. After the IV bolus of LR BP improved. Per report, patient was otherwise asymptomatic. 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 hx: , [place] resident for 1.5 year, has 3 sons very involved in care Fam. hx: No Hx reported Review of Systems - Review of Systems All systems: reviewed and no additional remarkable complaints except Review of Systems: ROS obtained from nursing. As per nursing patient has been lethargic and sleeping most of the time, no pain was noted. CLAY THROWER called for ,low BP Past Patient History - Past Medical History & Family History Past Medical History?: Yes - Past Social History Smoking Status: Former Smoker - CARDIAC Hx Hypertension: Yes - PULMONARY Hx Asthma: No Hx Bronchitis: No Hx Chronic Obstructive Pulmonary Disease (COPD): No Hx Emphysema: No Hx Pneumonia: No Hx Pulmonary Embolism: No Hx Sleep Apnea: No - NEUROLOGICAL Hx Alzheimer's Disease: No Hx Dementia: No Hx Migraine: No Hx Multiple Sclerosis: No Hx Parkinson's Disease: No Hx Seizures: No Hx Transient Ischemic Attacks (TIA): No - HEENT Hx HEENT Problems: No Hx Blind: No Hx Cataracts: No Hx Deafness: No Hx Difficulty Chewing: No Hx Epistaxis: No Hx Glaucoma: No Hx Macular Degeneration: No - RENAL Hx Chronic Kidney Disease: No Hx Kidney Stones: No - ENDOCRINE/METABOLIC Hx Hyperthyroidism: No Hx Hypothyroidism: No - HEMATOLOGICAL/ONCOLOGICAL Hx Anemia: No Hx Human Immunodeficiency Virus (HIV): No Hx Sickle Cell Disease: No - INTEGUMENTARY Hx Dermatological Problems: No Hx Basil Cell: No Hx Hernández: No Hx Cellulitis: No Hx Eczema: No Hx Melanoma: No Hx Psoriasis: No Hx Squamous Cell: No - MUSCULOSKELETAL/RHEUMATOLOGICAL Hx Falls: No - GASTROINTESTINAL Hx Diverticulitis: Yes - GENITOURINARY/GYNECOLOGICAL Hx Sexually Transmitted Disorders: No - PSYCHIATRIC Hx Substance Use: No - SURGICAL HISTORY Hx Appendectomy: No Hx Carotid Endarterectomy: No Hx Cholecystectomy: No Hx Coronary Artery Bypass Graft: No Hx Coronary Stent: No Hx Tonsillectomy: No - ANESTHESIA Hx Anesthesia: Yes Hx Anesthesia Reactions: No Hx Malignant Hyperthermia: No Meds Allergies/Adverse Reactions: Allergies Allergy/AdvReac Type Severity Reaction Status Date / Time No Known Allergies Allergy Verified 04/02/17 18:32 - Medications Medications: Current Medications Allopurinol (Zyloprim) 100 mg PO DAILY [facility] Last Admin: 04/06/17 09:03 Dose: 100 mg Ergocalciferol (Drisdol 50,000 Intl Units Cap) 1 cap PO QWK [facility] Last Admin: 04/03/17 10:37 Dose: 1 cap Piperacillin Sod/Tazobactam (Sod 3.375 gm/ Sodium Chloride) 100 mls @ 200 mls/ hr IVPB Q8H [facility] Last Admin: 04/06/17 05:52 Dose: 200 mls/hr Linezolid (Zyvox 600mg/300ml D5w) 600 mg in 300 mls @ 200 mls/hr IVPB Q12 [facility] Last Admin: 04/06/17 12:04 Dose: 200 mls/hr Lactated Ringer's (Lactated Ringer's 500ml) 500 mls @ 30 mls/hr IV .[id number] ONE Stop: 04/06/17 18:16 Last Admin: 04/06/17 02:10 Dose: 30 mls/hr Dextrose/Sodium Chloride (Dextrose 5%/0.45% Ns 1000 Ml) 1,000 mls @ 100 mls/hr IV .Q10H [facility] Last Admin: 04/06/17 10:55 Dose: 100 mls/hr Insulin Aspart (Novolog) 0 unit SC ACHS [facility] PRN Reason: Protocol Last Admin: 04/06/17 12:06 Dose: 1 unit Multivitamins (Hexavitamin) 1 tab PO DAILY [facility] Last Admin: 04/06/17 09:03 Dose: 1 tab Pantoprazole Sodium (Protonix Ec Tab) 20 mg PO DAILY [facility] Last Admin: 04/06/17 10:05 Dose: 20 mg Petrolatum (Desitin Original) 0 gm TOP Q8 [facility] Last Admin: 04/06/17 05:52 Dose: 1 applic Potassium Chloride (K-Dur 20 Meq Er Tab) 20 meq PO DAILY [facility] Last Admin: 04/06/17 09:02 Dose: 20 meq Rosuvastatin Calcium (Crestor) 5 mg PO [facility] Last Admin: 04/05/17 22:41 Dose: 5 mg Sitagliptin Phosphate (Januvia) 25 mg PO DAILY [facility] Last Admin: 04/06/17 09:03 Dose: 25 mg Tamsulosin HCl (Flomax) 0.4 mg PO [facility] Last Admin: 04/05/17 22:41 Dose: 0.4 mg Physical Exam - Constitutional Appears: Chronically Ill - Head Exam Head Exam: ATRAUMATIC, NORMAL INSPECTION, NORMOCEPHALIC - Eye Exam Eye Exam: EOMI, Normal appearance, PERRL Pupil Exam: NORMAL ACCOMODATION, PERRL - ENT Exam ENT Exam: Mucous Membranes Moist, Normal Exam - Neck Exam Neck exam: Positive for: Normal Inspection - Respiratory Exam Respiratory Exam: Decreased Breath Sounds, NORMAL BREATHING PATTERN - Cardiovascular Exam Cardiovascular Exam: Tachycardia, REGULAR RHYTHM - GI/Abdominal Exam GI & Abdominal Exam: Hypoactive Bowel Sounds - Rectal Exam Rectal Exam: Deferred - Extremities Exam Extremities exam: Positive for: pedal edema - Back Exam Back exam: NORMAL INSPECTION - Neurological Exam Neurological exam: Alert, Altered - Psychiatric Exam Psychiatric exam: Flat Affect - Skin Skin Exam: Pallor Results - Vital Signs Recent Vital Signs: Last Vital Signs Temp 98.1 F 04/06/17 07:00 Pulse 99 H 04/06/17 07:00 Resp 20 04/06/17 07:00 BP 101/55 L 04/06/17 07:00 Pulse Ox 94 L 04/06/17 07:00 - Labs Result Diagrams: 04/06/17 02:55 04/06/17 08:59 Labs: Laboratory Results - last 24 hr 04/05/17 04/05/17 04/05/17 14:20 16:18 21:19 WBC RBC Hgb Hct MCV MCH MCHC RDW Plt Count MPV Neut % (Auto) Lymph % (Auto) [place] % (Auto) Eos % (Auto) Baso % (Auto) Neut # Lymph # [place] # Eos # Baso # Neutrophils % (Manual) Lymphocytes % (Manual) Monocytes % (Manual) Eosinophils % (Manual) Platelet Estimate Anisocytosis (manual) Microcytosis (manual) Tear Drop Cells Ovalocytes Puncture Site Vnous pO2 14 L Nixon Test N/a VBG pH 7.33 VBG pCO2 45 VBG HCO3 20.8 VBG O2 Sat (Calc) 19.0 L VBG Base Excess -2.4 L Sodium Potassium Chloride Carbon Dioxide Anion Gap BUN Creatinine Est GFR ( Amer) Est GFR (Non-Af Amer) POC Glucose (mg/dL) 207 H 115 H Random Glucose Lactic Acid Calcium Ferritin Total Bilirubin AST ALT Alkaline Phosphatase Troponin I Total Protein Albumin Globulin Albumin/Globulin Ratio Vitamin B12 TSH 3rd Generation Cortisol AM Sample Ur Random Creatinine Ur Random Sodium 04/06/17 04/06/17 04/06/17 01:19 02:45 02:55 WBC RBC Hgb Hct MCV MCH MCHC RDW Plt Count MPV Neut % (Auto) Lymph % (Auto) [place] % (Auto) Eos % (Auto) Baso % (Auto) Neut # Lymph # [place] # Eos # Baso # Neutrophils % (Manual) Lymphocytes % (Manual) Monocytes % (Manual) Eosinophils % (Manual) Platelet Estimate Anisocytosis (manual) Microcytosis (manual) Tear Drop Cells Ovalocytes Puncture Site Vbg pO2 42 Nixon Test Na VBG pH 7.44 H VBG pCO2 29 L VBG HCO3 21.9 VBG O2 Sat (Calc) VBG Base Excess -3.2 L Sodium Potassium Chloride Carbon Dioxide Anion Gap BUN Creatinine Est GFR ( Amer) Est GFR (Non-Af Amer) POC Glucose (mg/dL) 227 H Random Glucose Lactic Acid Calcium Ferritin 439.0 Total Bilirubin AST ALT Alkaline Phosphatase Troponin I Total Protein Albumin Globulin Albumin/Globulin Ratio Vitamin B12 TSH 3rd Generation Cortisol AM Sample Ur Random Creatinine Ur Random Sodium 04/06/17 04/06/17 04/06/17 02:55 02:55 03:34 WBC 9.1 RBC 3.27 L Hgb 8.8 L Hct 26.8 L MCV 82.0 MCH 27.0 MCHC 32.9 L RDW 16.6 H Plt Count 257 MPV 9.4 Neut % (Auto) 82.4 H Lymph % (Auto) 9.6 L [place] % (Auto) 6.4 Eos % (Auto) 1.3 Baso % (Auto) 0.3 Neut # 7.5 H Lymph # 0.9 L [place] # 0.6 Eos # 0.1 Baso # 0.0 Neutrophils % (Manual) 85 H Lymphocytes % (Manual) 9 L Monocytes % (Manual) 5 Eosinophils % (Manual) 1 Platelet Estimate Normal Anisocytosis (manual) Slight Microcytosis (manual) Slight Tear Drop Cells Slight Ovalocytes Slight Puncture Site pO2 Nixon Test VBG pH VBG pCO2 VBG HCO3 VBG O2 Sat (Calc) VBG Base Excess Sodium Potassium Chloride Carbon Dioxide Anion Gap BUN Creatinine Est GFR ( Amer) Est GFR (Non-Af Amer) POC Glucose (mg/dL) Random Glucose Lactic Acid 1.1 Calcium Ferritin Total Bilirubin AST ALT Alkaline Phosphatase Troponin I Total Protein Albumin Globulin Albumin/Globulin Ratio Vitamin B12 504 TSH 3rd Generation 0.90 Cortisol AM Sample 29.3 H Ur Random Creatinine Ur Random Sodium 04/06/17 04/06/17 04/06/17 06:26 06:42 08:59 WBC RBC Hgb Hct MCV MCH MCHC RDW Plt Count MPV Neut % (Auto) Lymph % (Auto) [place] % (Auto) Eos % (Auto) Baso % (Auto) Neut # Lymph # [place] # Eos # Baso # Neutrophils % (Manual) Lymphocytes % (Manual) Monocytes % (Manual) Eosinophils % (Manual) Platelet Estimate Anisocytosis (manual) Microcytosis (manual) Tear Drop Cells Ovalocytes Puncture Site pO2 Nixon Test VBG pH VBG pCO2 VBG HCO3 VBG O2 Sat (Calc) VBG Base Excess Sodium 152 H Potassium 4.2 Chloride 117 H Carbon Dioxide 22 Anion Gap 17 BUN 42 H Creatinine 1.6 H Est GFR ( Amer) 50 Est GFR (Non-Af Amer) 41 POC Glucose (mg/dL) 164 H Random Glucose 133 H Lactic Acid Calcium 9.9 Ferritin Total Bilirubin 0.5 AST 45 ALT 70 Alkaline Phosphatase 213 H D Troponin I 0.0220 Total Protein 5.9 L Albumin 2.3 L Globulin 3.6 Albumin/Globulin Ratio 0.6 L Vitamin B12 TSH 3rd Generation Cortisol AM Sample Ur Random Creatinine 40.5 Ur Random Sodium 41 04/06/17 11:57 WBC RBC Hgb Hct MCV MCH MCHC RDW Plt Count MPV Neut % (Auto) Lymph % (Auto) [place] % (Auto) Eos % (Auto) Baso % (Auto) Neut # Lymph # [place] # Eos # Baso # Neutrophils % (Manual) Lymphocytes % (Manual) Monocytes % (Manual) Eosinophils % (Manual) Platelet Estimate Anisocytosis (manual) Microcytosis (manual) Tear Drop Cells Ovalocytes Puncture Site pO2 Nixon Test VBG pH VBG pCO2 VBG HCO3 VBG O2 Sat (Calc) VBG Base Excess Sodium Potassium Chloride Carbon Dioxide Anion Gap BUN Creatinine Est GFR ( Amer) Est GFR (Non-Af Amer) POC Glucose (mg/dL) 199 H Random Glucose Lactic Acid Calcium Ferritin Total Bilirubin AST ALT Alkaline Phosphatase Troponin I Total Protein Albumin Globulin Albumin/Globulin Ratio Vitamin B12 TSH 3rd Generation Cortisol AM Sample Ur Random Creatinine Ur Random Sodium Assessment & Plan - Assessment and Plan (Free Text) Assessment: Palliative consult Code status not defined, no advance directive on chart, PPS 10%, ROS obtained from nursing I reviewed medical records, all diagnostic studies, examined patient in the bed and discussed goals of care with his son Mat at the bed side. Patient is alert, lethargic, eyes closed, answers simple question with " yes/no " only. Patient is contracted at lower extremities and assumes favorable almost curled up position. Occasionally patient extends his upper extremities in the air with no purpose. Skin is pale, Hb 8.8. This morning CLAY THROWER was called for BP 77 /44. BP at present 101/55, HR 99, O2sat 94% RA. Breath sounds are diminished, no cough noted, abdomen soft, patient is incontinent of bowel and bladder. Patient screams in pain when touched or repositioned. Patient unable to reposition for comfort without assistance nor is able to feed him self. With patient's son Mat at bed side, goals of care discussed. Mat said that he has yesenia visiting his father at the [place] very often and has noticed decline in his father's health. Recently, patient become bed ridden and stopped moving around in his WC, than contracture begun to develop. Mat said that he had discussion with his siblings and all agreed to precede with only symptomatic therapy without applying any invasive treatments. Patient's son Eran Shanks was made POA as per son Mat. Mat talked to Alberto in my presence and Alberto confirmed That he would want patient to be made DNR/DNI. I completed the POLST and faxed it over to Alberto to read and sign. We further discussed level, of care that would be most beneficial for the patient. Mat brought up Hospice as desired level of care and I offer more information about it. Mat stated that family would like patient to return back to [facility] under the hospice care. Impression * This is chronically ill man with advanced dementia and noticeable decline in condition * Patient is fully dependent of care with ADLs * patient's family ( son Mat at bed side and alberto over the phone) are advocating for comfort measures only and DNR/DNI status * MARÍA ELENA completed and faxed over to Alberto to signed it, as he is a POA ( awaiting response) * Family prefers Hospice care at [facility] Suggestion * Agree with DNR/DNI * Would transfer back to [place] under the hospice care Thank you very much for consulting Palliative Care
[2017-04-06 14:18] LABS: IRON 14 ug/dL (49-181)
[2017-04-06 14:21] LABS: ALB/GLOB RATIO 0.7 (1.0-2.1); BILIRUBIN,TOTAL 0.3 mg/dL (0.2-1.3); CALCIUM 9.5 mg/dl (8.6-10.4); MAGNESIUM 1.9 mg/dL (1.6-2.3); POTASSIUM 3.8 mmol/L (3.6-5.2); TOTAL PROTEIN 5.7 g/dL (6.3-8.3)
--- NOTE | 2017-04-06 16:23 | CP.PCM.PN ---
Subjective - Date & Time of Evaluation Date of Evaluation: 04/06/17 Time of Evaluation: 09:00 - Subjective Subjective: weak and lethargic cultures neg thus far Objective - Vital Signs/Intake and Output Vital Signs (last 24 hours): Temp Pulse Resp BP Pulse Ox 98 F 83 20 96/57 L 96 04/06/17 15:58 04/06/17 15:58 04/06/17 15:58 04/06/17 15:58 04/06/17 15:58 Intake and Output: 04/06/17 04/06/17 06:59 18:59 Intake Total 1700 1000 Output Total 1150 500 Balance 550 500 - Medications Medications: Current Medications Allopurinol (Zyloprim) 100 mg PO DAILY [facility] Last Admin: 04/06/17 09:03 Dose: 100 mg Ergocalciferol (Drisdol 50,000 Intl Units Cap) 1 cap PO QWK [facility] Last Admin: 04/03/17 10:37 Dose: 1 cap Piperacillin Sod/Tazobactam (Sod 3.375 gm/ Sodium Chloride) 100 mls @ 200 mls/ hr IVPB Q8H [facility] Last Admin: 04/06/17 05:52 Dose: 200 mls/hr Linezolid (Zyvox 600mg/300ml D5w) 600 mg in 300 mls @ 200 mls/hr IVPB Q12 [facility] Last Admin: 04/06/17 12:04 Dose: 200 mls/hr Lactated Ringer's (Lactated Ringer's 500ml) 500 mls @ 30 mls/hr IV .[id number] ONE Stop: 04/06/17 18:16 Last Admin: 04/06/17 02:10 Dose: 30 mls/hr Dextrose/Sodium Chloride (Dextrose 5%/0.45% Ns 1000 Ml) 1,000 mls @ 100 mls/hr IV .Q10H [facility] Last Admin: 04/06/17 10:55 Dose: 100 mls/hr Insulin Aspart (Novolog) 0 unit SC ACHS [facility] PRN Reason: Protocol Last Admin: 04/06/17 12:06 Dose: 1 unit Multivitamins (Hexavitamin) 1 tab PO DAILY [facility] Last Admin: 04/06/17 09:03 Dose: 1 tab Pantoprazole Sodium (Protonix Ec Tab) 20 mg PO DAILY [facility] Last Admin: 04/06/17 10:05 Dose: 20 mg Petrolatum (Desitin Original) 0 gm TOP Q8 [facility] Last Admin: 04/06/17 14:15 Dose: 1 applic Potassium Chloride (K-Dur 20 Meq Er Tab) 20 meq PO DAILY [facility] Last Admin: 04/06/17 09:02 Dose: 20 meq Rosuvastatin Calcium (Crestor) 5 mg PO HS [facility] Last Admin: 04/05/17 22:41 Dose: 5 mg Sitagliptin Phosphate (Januvia) 25 mg PO DAILY [facility] Last Admin: 04/06/17 09:03 Dose: 25 mg Tamsulosin HCl (Flomax) 0.4 mg PO HS [facility] Last Admin: 04/05/17 22:41 Dose: 0.4 mg - Labs Labs: 04/06/17 02:55 04/06/17 13:55 PT 12.6 SECONDS (9.7-12.2) H 04/02/17 19:43 INR 1.1 04/02/17 19:43 APTT 26 SECONDS (21-34) 04/02/17 19:43 - Constitutional Appears: Non-toxic, Chronically Ill - Head Exam Head Exam: NORMOCEPHALIC - Eye Exam Eye Exam: PERRL. absent: Scleral icterus - ENT Exam ENT Exam: Mucous Membranes Dry - Neck Exam Neck Exam: absent: Lymphadenopathy - Respiratory Exam Respiratory Exam: Decreased Breath Sounds - Cardiovascular Exam Cardiovascular Exam: REGULAR RHYTHM - GI/Abdominal Exam GI & Abdominal Exam: Distended, Soft - Rectal Exam Rectal Exam: Deferred Assessment and Plan (1) Sepsis Status: Acute (2) Decubitus ulcer, stage II Status: Acute (3) UTI (urinary tract infection) Status: Acute
--- NOTE | 2017-04-06 22:57 | CP.PCM.PN ---
Subjective - Date & Time of Evaluation Date of Evaluation: 04/06/17 Time of Evaluation: 17:00 - Subjective Subjective: seen at bed side. not responding well unlike before.na-150 on D5W, has have blisters on skin. so far all c\s negative spoke to son Mat over phone this am. few runs of VTach last night with fluctuating BP labs reviewed Objective - Vital Signs/Intake and Output Vital Signs (last 24 hours): Temp Pulse Resp BP Pulse Ox 98 F 83 20 96/57 L 96 04/06/17 15:58 04/06/17 15:58 04/06/17 15:58 04/06/17 15:58 04/06/17 15:58 Intake and Output: 04/06/17 04/07/17 18:59 06:59 Intake Total 1000 Output Total 500 802 Balance 500 -802 - Medications Medications: Current Medications Allopurinol (Zyloprim) 100 mg PO DAILY [facility] Last Admin: 04/06/17 09:03 Dose: 100 mg Ergocalciferol (Drisdol 50,000 Intl Units Cap) 1 cap PO QWK [facility] Last Admin: 04/03/17 10:37 Dose: 1 cap Piperacillin Sod/Tazobactam (Sod 3.375 gm/ Sodium Chloride) 100 mls @ 200 mls/ hr IVPB Q8H [facility] Last Admin: 04/06/17 05:52 Dose: 200 mls/hr Linezolid (Zyvox 600mg/300ml D5w) 600 mg in 300 mls @ 200 mls/hr IVPB Q12 [facility] Last Admin: 04/06/17 22:24 Dose: 200 mls/hr Dextrose/Sodium Chloride (Dextrose 5%/0.45% Ns 1000 Ml) 1,000 mls @ 100 mls/hr IV .Q10H [facility] Last Admin: 04/06/17 22:25 Dose: Not Given Insulin Aspart (Novolog) 0 unit SC ACHS [facility] PRN Reason: Protocol Last Admin: 04/06/17 22:27 Dose: Not Given Multivitamins (Hexavitamin) 1 tab PO DAILY [facility] Last Admin: 04/06/17 09:03 Dose: 1 tab Pantoprazole Sodium (Protonix Ec Tab) 20 mg PO DAILY [facility] Last Admin: 04/06/17 10:05 Dose: 20 mg Petrolatum (Desitin Original) 0 gm TOP Q8 [facility] Last Admin: 04/06/17 22:26 Dose: 1 applic Potassium Chloride (K-Dur 20 Meq Er Tab) 20 meq PO DAILY [facility] Last Admin: 04/06/17 09:02 Dose: 20 meq Rosuvastatin Calcium (Crestor) 5 mg PO HS [facility] Last Admin: 04/06/17 22:25 Dose: 5 mg Sitagliptin Phosphate (Januvia) 25 mg PO DAILY [facility] Last Admin: 04/06/17 09:03 Dose: 25 mg Tamsulosin HCl (Flomax) 0.4 mg PO HS [facility] Last Admin: 04/06/17 22:25 Dose: 0.4 mg - Labs Labs: 04/06/17 02:55 04/06/17 13:55 PT 12.6 SECONDS (9.7-12.2) H 04/02/17 19:43 INR 1.1 04/02/17 19:43 APTT 26 SECONDS (21-34) 04/02/17 19:43 - Additional Findings Additional findings: Constitutional Appears: No Acute Distress, Confused, Chronically Ill - Head Exam Head Exam: ATRAUMATIC, NORMAL INSPECTION, NORMOCEPHALIC - Eye Exam Eye Exam: Normal appearance, PERRL. absent: Scleral icterus - ENT Exam ENT Exam: Mucous Membranes Dry - Respiratory Exam Respiratory Exam: Clear to Auscultation Bilateral, Rhonchi, NORMAL BREATHING PATTERN. absent: Wheezes, Respiratory Distress - Cardiovascular Exam Cardiovascular Exam: REGULAR RHYTHM, +S1, +S2, Systolic Murmur - GI/Abdominal Exam GI & Abdominal Exam: Normal Bowel Sounds, Soft, Tenderness. absent: Mass - Extremities Exam Extremities exam: Positive for: pedal edema, pedal pulses present Additional comments: 1 + - Neurological Exam Additional comments: altered ,confused unable to answer questions - Skin Skin Exam: Petechiae Additional comments: healing skin lesions on legs noted, buttock one. Assessment and Plan (1) Altered mental state Status: Acute (2) Dehydration Status: Acute (3) Essential (primary) hypertension Status: Acute (4) Ventricular tachycardia Status: Acute (5) Anemia Status: Chronic (6) Sepsis Status: Suspected - Assessment and Plan (Free Text) Plan: continue D5NS icu-to be monitored on floor moniotr na BP meds held son- Mat noted his broy=ther josé has POA , they discussed many times- inclines toward DNR\DNI\ no artifical feeding etc
[2017-04-07] MEDS: Dextrose 5%/0.45% NS 1,000 ML IV SCH ×2 (03:02→17:39)
[2017-04-07] MEDS: Piperacillin/Tazobact 3.375 GM in Sodium Chloride 100 ML IVPB SCH ×3 (05:25→21:08)
[2017-04-07] MEDS: Zinc Oxide Topical 30 gm Tube TOP SCH ×2 (05:28→22:09)
[2017-04-07] MEDS: (Novolog) Insulin Aspart, Recombinant 100 u/ml 10 ml vial SC SCH ×4 (08:05→21:42)
[2017-04-07] MEDS: Potassium Chloride 20 mEq ER Tab PO SCH (09:43)
[2017-04-07] MEDS: Pantoprazole 20 mg EC Tab PO SCH (09:43)
[2017-04-07] MEDS: Multiple Vitamins Tab PO SCH (09:44)
[2017-04-07] MEDS: Linezolid 600 mg in D5W 300 ml 600 MG/300 ML BAG IVPB SCH ×2 (09:44→22:00)
[2017-04-07 12:03] LABS: POTASSIUM 3.4 mmol/L (3.6-5.2)
[2017-04-07 12:06] LABS: CALCIUM 8.9 mg/dl (8.6-10.4)
[2017-04-07] MEDS ORDERED: Potassium Chloride 20 mEq/15 ml LIQ UD PO ONE (13:00)
--- NOTE | 2017-04-07 16:59 | CP.PCM.PN ---
Subjective - Date & Time of Evaluation Date of Evaluation: 04/07/17 Time of Evaluation: 10:50 - Subjective Subjective: CHANGE MANAGER NOTES Patient seen today awke , alert, confuse, comfortable , NAD bun/cr and NA improved ,WBC -wnl D/W with Dr. Romero regarding duration of antibiotics , recommends total of 7 days , - started on 04/03/17 . can be switched to PO if iv access not available (zyvox) D/w Dr. Chaudhry regarding discharge planing, plan to discharge to [place] when POLST signed , awaiting POLST singed by son ( swetha ASHRAF) Palliative care on board Blood culture for fungus ordered as per Dr. Chaudhry request Objective - Vital Signs/Intake and Output Vital Signs (last 24 hours): Temp Pulse Resp BP Pulse Ox 98.3 F 99 H 20 108/64 99 04/07/17 16:28 04/07/17 16:28 04/07/17 16:28 04/07/17 16:28 04/07/17 16:28 Intake and Output: 04/07/17 04/07/17 06:59 18:59 Intake Total 900 1500 Output Total 1402 500 Balance -502 1000 - Medications Medications: Current Medications Allopurinol (Zyloprim) 100 mg PO DAILY [facility] Last Admin: 04/07/17 09:43 Dose: 100 mg Ergocalciferol (Drisdol 50,000 Intl Units Cap) 1 cap PO QWK [facility] Last Admin: 04/03/17 10:37 Dose: 1 cap Piperacillin Sod/Tazobactam (Sod 3.375 gm/ Sodium Chloride) 100 mls @ 200 mls/ hr IVPB Q8H [facility] Last Admin: 04/07/17 13:29 Dose: 200 mls/hr Linezolid (Zyvox 600mg/300ml D5w) 600 mg in 300 mls @ 200 mls/hr IVPB Q12 [facility] Last Admin: 04/07/17 09:44 Dose: 200 mls/hr Dextrose/Sodium Chloride (Dextrose 5%/0.45% Ns 1000 Ml) 1,000 mls @ 100 mls/hr IV .Q10H [facility] Last Admin: 04/07/17 03:02 Dose: 100 mls/hr Insulin Aspart (Novolog) 0 unit SC ACHS [facility] PRN Reason: Protocol Last Admin: 04/07/17 12:25 Dose: 3 unit Multivitamins (Hexavitamin) 1 tab PO DAILY [facility] Last Admin: 04/07/17 09:44 Dose: 1 tab Pantoprazole Sodium (Protonix Ec Tab) 20 mg PO DAILY [facility] Last Admin: 04/07/17 09:43 Dose: 20 mg Petrolatum (Desitin Original) 0 gm TOP Q8 [facility] Last Admin: 04/07/17 05:28 Dose: 1 applic Potassium Chloride (K-Dur 20 Meq Er Tab) 20 meq PO DAILY [facility] Last Admin: 04/07/17 09:43 Dose: 20 meq Rosuvastatin Calcium (Crestor) 5 mg PO HS [facility] Last Admin: 04/06/17 22:25 Dose: 5 mg Sitagliptin Phosphate (Januvia) 25 mg PO DAILY [facility] Last Admin: 04/07/17 09:44 Dose: 25 mg Tamsulosin HCl (Flomax) 0.4 mg PO HS [facility] Last Admin: 04/06/17 22:25 Dose: 0.4 mg - Labs Labs: 04/06/17 02:55 04/07/17 11:38 PT 12.6 SECONDS (9.7-12.2) H 04/02/17 19:43 INR 1.1 04/02/17 19:43 APTT 26 SECONDS (21-34) 04/02/17 19:43
--- NOTE | 2017-04-07 18:33 | CARD ---
APPROVED REPORT EKG Measurement Heart [id number] <Conclusion> Sinus tachycardia with premature supraventricular complexes and with occasional premature ventricular complexes Nonspecific T wave abnormality Abnormal ECG
--- NOTE | 2017-04-07 23:33 | CP.PCM.PN ---
Subjective - Date & Time of Evaluation Date of Evaluation: 04/07/17 Time of Evaluation: 16:00 - Subjective Subjective: able to comunicate appropriately.notes -he is back. na-144, k-3.4, normalised WBC events noted. awaiting paper work spoke to son-Mat tolerating diet well AXR-no constipation Objective - Vital Signs/Intake and Output Vital Signs (last 24 hours): Temp Pulse Resp BP Pulse Ox 98.3 F 99 H 20 108/64 99 04/07/17 16:28 04/07/17 16:28 04/07/17 16:28 04/07/17 16:28 04/07/17 16:28 Intake and Output: 04/07/17 04/08/17 18:59 06:59 Intake Total 1500 Output Total 500 Balance 1000 - Medications Medications: Current Medications Allopurinol (Zyloprim) 100 mg PO DAILY [facility] Last Admin: 04/07/17 09:43 Dose: 100 mg Ergocalciferol (Drisdol 50,000 Intl Units Cap) 1 cap PO QWK [facility] Last Admin: 04/03/17 10:37 Dose: 1 cap Piperacillin Sod/Tazobactam (Sod 3.375 gm/ Sodium Chloride) 100 mls @ 200 mls/ hr IVPB Q8H [facility] Last Admin: 04/07/17 21:08 Dose: 200 mls/hr Linezolid (Zyvox 600mg/300ml D5w) 600 mg in 300 mls @ 200 mls/hr IVPB Q12 [facility] Last Admin: 04/07/17 22:00 Dose: 200 mls/hr Dextrose/Sodium Chloride (Dextrose 5%/0.45% Ns 1000 Ml) 1,000 mls @ 100 mls/hr IV .Q10H [facility] Last Admin: 04/07/17 17:39 Dose: 100 mls/hr Insulin Aspart (Novolog) 0 unit SC ACHS [facility] PRN Reason: Protocol Last Admin: 04/07/17 21:42 Dose: Not Given Multivitamins (Hexavitamin) 1 tab PO DAILY [facility] Last Admin: 04/07/17 09:44 Dose: 1 tab Pantoprazole Sodium (Protonix Ec Tab) 20 mg PO DAILY [facility] Last Admin: 04/07/17 09:43 Dose: 20 mg Petrolatum (Desitin Original) 0 gm TOP Q8 [facility] Last Admin: 04/07/17 22:09 Dose: 1 applic Potassium Chloride (K-Dur 20 Meq Er Tab) 20 meq PO DAILY [facility] Last Admin: 04/07/17 09:43 Dose: 20 meq Rosuvastatin Calcium (Crestor) 5 mg PO HS [facility] Last Admin: 04/07/17 21:08 Dose: 5 mg Sitagliptin Phosphate (Januvia) 25 mg PO DAILY [facility] Last Admin: 04/07/17 09:44 Dose: 25 mg Tamsulosin HCl (Flomax) 0.4 mg PO HS [facility] Last Admin: 04/07/17 21:08 Dose: 0.4 mg - Labs Labs: 04/06/17 02:55 04/07/17 11:38 PT 12.6 SECONDS (9.7-12.2) H 04/02/17 19:43 INR 1.1 04/02/17 19:43 APTT 26 SECONDS (21-34) 04/02/17 19:43 - Additional Findings Additional findings: Constitutional Appears: No Acute Distress, Confused, Chronically Ill - Head Exam Head Exam: ATRAUMATIC, NORMAL INSPECTION, NORMOCEPHALIC - Eye Exam Eye Exam: Normal appearance, PERRL. absent: Scleral icterus - ENT Exam ENT Exam: Mucous Membranes Dry - Respiratory Exam Respiratory Exam: Clear to Auscultation Bilateral, Rhonchi, NORMAL BREATHING PATTERN. absent: Wheezes, Respiratory Distress - Cardiovascular Exam Cardiovascular Exam: REGULAR RHYTHM, +S1, +S2, Systolic Murmur - GI/Abdominal Exam GI & Abdominal Exam: Normal Bowel Sounds, Soft, Tenderness. absent: Mass - Extremities Exam Extremities exam: Positive for: pedal edema, pedal pulses present Additional comments: 1 + - Neurological Exam Additional comments: altered ,confused unable to answer questions - Skin Skin Exam: Petechiae Additional comments: healling skin lesions on legs noted, buttock one. Assessment and Plan (1) Acute renal failure Status: Acute (2) Altered mental state Status: Acute (3) Dehydration Status: Acute (4) Essential (primary) hypertension Status: Acute (5) Sepsis Status: Acute (6) Gout Status: Chronic - Assessment and Plan (Free Text) Plan: hb been stable d\w ID to continue abx - 2 days as so far all c\s negative ordered fungal c\s supportive care H eis DNR\DNI palliative care on board ,awaiting paper work sepsis ruled out
[2017-04-08] MEDS: Dextrose 5%/0.45% NS 1,000 ML IV SCH ×2 (02:45→05:29)
[2017-04-08] MEDS: Piperacillin/Tazobact 3.375 GM in Sodium Chloride 100 ML IVPB SCH (05:29)
[2017-04-08] MEDS: Zinc Oxide Topical 30 gm Tube TOP SCH (05:32)
[2017-04-08] MEDS: (Novolog) Insulin Aspart, Recombinant 100 u/ml 10 ml vial SC SCH ×2 (08:30→13:15)
[2017-04-08] MEDS: Linezolid 600 mg in D5W 300 ml 600 MG/300 ML BAG IVPB SCH (10:50)
[2017-04-08] MEDS: Potassium Chloride 20 mEq ER Tab PO SCH (10:50)
[2017-04-08] MEDS: Pantoprazole 20 mg EC Tab PO SCH (10:50)
[2017-04-08] MEDS: Multiple Vitamins Tab PO SCH (11:00)
--- NOTE | 2017-04-08 11:23 | CP.PCM.PN ---
Subjective - Date & Time of Evaluation Date of Evaluation: 04/08/17 Time of Evaluation: 11:20 - Subjective Subjective: patient offers no complaints Objective - Vital Signs/Intake and Output Vital Signs (last 24 hours): Temp Pulse Resp BP Pulse Ox 97.5 F L 96 H 18 103/56 L 100 04/08/17 07:00 04/08/17 07:00 04/08/17 07:00 04/08/17 07:00 04/08/17 07:00 Intake and Output: 04/08/17 04/08/17 06:59 18:59 Output Total 1600 Balance -1600 - Medications Medications: Current Medications Allopurinol (Zyloprim) 100 mg PO DAILY [facility]S [facility] Last Admin: 04/08/17 10:50 Dose: 100 mg Ergocalciferol (Drisdol 50,000 Intl Units Cap) 1 cap PO QWK [facility] 234 BEDS AT [facility] Last Admin: 04/03/17 10:37 Dose: 1 cap Piperacillin Sod/Tazobactam (Sod 3.375 gm/ Sodium Chloride) 100 mls @ 200 mls/ hr IVPB Q8H [facility] Last Admin: 04/08/17 05:29 Dose: 200 mls/hr Linezolid (Zyvox 600mg/300ml D5w) 600 mg in 300 mls @ 200 mls/hr IVPB Q12 [facility] 234 [facility]S [facility] Last Admin: 04/08/17 10:50 Dose: 200 mls/hr Dextrose/Sodium Chloride (Dextrose 5%/0.45% Ns 1000 Ml) 1,000 mls @ 100 mls/hr IV .Q10H [facility] 234 [facility]S [facility] Last Admin: 04/08/17 05:29 Dose: 100 mls/hr Insulin Aspart (Novolog) 0 unit SC ACHS [facility] 234 B[facility]S AT [facility] PRN Reason: Protocol Last Admin: 04/08/17 08:30 Dose: Not Given Multivitamins (Hexavitamin) 1 tab PO DAILY [facility] 234 BEDS AT [facility] Last Admin: 04/07/17 09:44 Dose: 1 tab Pantoprazole Sodium (Protonix Ec Tab) 20 mg PO DAILY [facility] 234 B[facility]S AT [facility] Last Admin: 04/08/17 10:50 Dose: 20 mg Petrolatum (Desitin Original) 0 gm TOP Q8 [facility] 234 B[facility]S [facility] Last Admin: 04/08/17 05:32 Dose: 1 applic Potassium Chloride (K-Dur 20 Meq Er Tab) 20 meq PO DAILY [facility] 234 B[facility]S AT [facility] Last Admin: 04/08/17 10:50 Dose: 20 meq Rosuvastatin Calcium (Crestor) 5 mg PO HS [facility] 234 BEDS AT [facility] Last Admin: 04/07/17 21:08 Dose: 5 mg Sitagliptin Phosphate (Januvia) 25 mg PO DAILY [facility] 234 BEDS AT [facility] Last Admin: 04/08/17 10:50 Dose: 25 mg Tamsulosin HCl (Flomax) 0.4 mg PO HS [facility] B[facility]S AT [facility] Last Admin: 04/07/17 21:08 Dose: 0.4 mg - Labs Labs: 04/06/17 02:55 04/07/17 11:38 PT 12.6 SECONDS (9.7-12.2) H 04/02/17 19:43 INR 1.1 04/02/17 19:43 APTT 26 SECONDS (21-34) 04/02/17 19:43 - Constitutional Appears: Chronically Ill - Head Exam Head Exam: ATRAUMATIC, NORMAL INSPECTION, NORMOCEPHALIC - Eye Exam Eye Exam: EOMI, Normal appearance, PERRL Pupil Exam: NORMAL ACCOMODATION, PERRL - ENT Exam ENT Exam: Normal Exam - Neck Exam Neck Exam: Normal Inspection - Respiratory Exam Respiratory Exam: Decreased Breath Sounds, NORMAL BREATHING PATTERN - Cardiovascular Exam Cardiovascular Exam: REGULAR RHYTHM, +S1, +S2 - GI/Abdominal Exam GI & Abdominal Exam: Normal Bowel Sounds - Rectal Exam Rectal Exam: Deferred - Extremities Exam Extremities Exam: Pedal Edema - Back Exam Back Exam: NORMAL INSPECTION - Neurological Exam Neurological Exam: Alert, Awake Neuro motor strength exam: Left Upper Extremity: 2/1, Right Upper Extremity: 2/1 , Left Lower Extremity: 2/1, Right Lower Extremity: 2/1 - Psychiatric Exam Psychiatric exam: Flat Affect - Skin Skin Exam: Dry, Normal Color, Warm Assessment and Plan - Assessment and Plan (Free Text) Assessment: patient examined in bed looking more alert today and able to answer simple questions. Patient was not sure where he was, and what time of the year it was. Breath sounds are diminished, there is no accessory muscle use, abdomen is soft and non tender. Patient is incontinent. There is mild pedal edema. VS are WNL, patient is afebrile. I spoke over the phone with patient's son Dimitris who is POA and reviewed my discussion with his brother Mat, regarding goals of care and Code status. Dimitris agreed with DNR/DNI and after multiple attempts to fax it over to him for signature, it was done. Copy of POLST to be used as an original on chart. This was shared with Doctor Jonathan and SS Flora. Family is agreeable with patient's return [facility]. The hosp[facility] care [facility] was to be further discussed with Doctor Reynolds, as per son Mat. I reached out to Doctor Reynolds's office to discuss the discharge plan . The hand tool filer said Doctor was to call back. I communicated this to Flora ZAVALETA. Impression * This is chronically ill man in no acute distress * Abdominal pain subsided * Patient is more alert and able to communicate * The POA son Tom signed POLST * Family to further discuss Hospice care at [place] with Doctor Reynolds Suggestion * DNR/DNI * Would discharged patient to [place] today
[2017-04-08 14:19] VITALS: BP 106/64; PULSE 95; RESP 20; TEMP 98.7; O2SAT 98
--- NOTE | 2017-04-10 22:33 | CP.PCM.DIS ---
Provider - Provider Date of Admission: 04/02/17 20:35 Attending physician: Carolann Reynolds MD Time Spent in preparation of Discharge (in minutes): 30 Diagnosis - Discharge Diagnosis (1) Acute renal failure Status: Resolved (2) Altered mental state Status: Resolved (3) Dehydration Status: Acute (4) Essential (primary) hypertension Status: Chronic (5) Sepsis Status: Acute (6) Gout Status: Chronic (7) Hypernatremia Status: Resolved (8) Anemia Status: Chronic (9) Sepsis Status: Ruled-out Hospital Course - Lab Results Lab Results: Micro Results 04/05/17 14:30 Blood Blood Culture - Final NO GROWTH AFTER 5 DAYS 04/05/17 14:30 Blood Gram Stain - Final TEST NOT PERFORMED 04/05/17 14:00 Blood Blood Culture - Final NO GROWTH AFTER 5 DAYS 04/05/17 14:00 Blood Gram Stain - Final TEST NOT PERFORMED 04/03/17 01:20 Blood Blood Culture - Final NO GROWTH AFTER 5 DAYS 04/03/17 01:20 Blood Gram Stain - Final TEST NOT PERFORMED 04/03/17 00:50 Blood Blood Culture - Final NO GROWTH AFTER 5 DAYS 04/03/17 00:50 Blood Gram Stain - Final TEST NOT PERFORMED 04/03/17 00:58 Urine,Bennett Urine Culture - Final No Growth (<1,000 CFU/ML) Most Recent Lab Values WBC 9.1 K/uL (4.8-10.8) 04/06/17 02:55 RBC 3.27 Mil/uL (4.40-5.90) L 04/06/17 02:55 Hgb 8.8 g/dL (12.0-18.0) L 04/06/17 02:55 Hct 26.8 % (35.0-51.0) L 04/06/17 02:55 MCV 82.0 fL (80.0-94.0) 04/06/17 02:55 MCH 27.0 pg (27.0-31.0) 04/06/17 02:55 MCHC 32.9 g/dL (33.0-37.0) L 04/06/17 02:55 RDW 16.6 % (11.5-14.5) H 04/06/17 02:55 Plt Count 257 K/uL (130-400) 04/06/17 02:55 MPV 9.4 fL (7.2-11.7) 04/06/17 02:55 Neut % (Auto) 82.4 % (50.0-75.0) H 04/06/17 02:55 Lymph % (Auto) 9.6 % (20.0-40.0) L 04/06/17 02:55 [place] % (Auto) 6.4 % (0.0-10.0) 04/06/17 02:55 Eos % (Auto) 1.3 % (0.0-4.0) 04/06/17 02:55 Baso % (Auto) 0.3 % (0.0-2.0) 04/06/17 02:55 Neut # 7.5 K/uL (1.8-7.0) H 04/06/17 02:55 Lymph # 0.9 K/uL (1.0-4.3) L 04/06/17 02:55 [place] # 0.6 K/uL (0.0-0.8) 04/06/17 02:55 Eos # 0.1 K/uL (0.0-0.7) 04/06/17 02:55 Baso # 0.0 K/uL (0.0-0.2) 04/06/17 02:55 Neutrophils % (Manual) 85 % (50-75) H 04/06/17 02:55 Lymphocytes % (Manual) 9 % (20-40) L 04/06/17 02:55 Monocytes % (Manual) 5 % (0-10) 04/06/17 02:55 Eosinophils % (Manual) 1 % (0-4) 04/06/17 02:55 Platelet Estimate Normal (NORMAL) 04/06/17 02:55 Hypochromasia (manual) Slight 04/04/17 07:08 Poikilocytosis (manual Slight 04/04/17 07:08 Anisocytosis (manual) Slight 04/06/17 02:55 Microcytosis (manual) Slight 04/06/17 02:55 Tear Drop Cells Slight 04/06/17 02:55 Ovalocytes Slight 04/06/17 02:55 PT 12.6 SECONDS (9.7-12.2) H 04/02/17 19:43 INR 1.1 04/02/17 19:43 APTT 26 SECONDS (21-34) 04/02/17 19:43 Puncture Site Vbg 04/06/17 02:45 pO2 42 mm/Hg (30-55) 04/06/17 02:45 Nixon Test Na 04/06/17 02:45 VBG pH 7.44 (7.32-7.43) H 04/06/17 02:45 VBG pCO2 29 mmHg (40-60) L 04/06/17 02:45 VBG HCO3 21.9 mmol/L 04/06/17 02:45 VBG O2 Sat (Calc) 19.0 % (40-65) L 04/05/17 14:20 VBG Base Excess -3.2 mmol/L (0.0-2.0) L 04/06/17 02:45 Sodium 144 mmol/L (132-148) 04/07/17 11:38 Potassium 3.4 mmol/L (3.6-5.2) L 04/07/17 11:38 Chloride 114 mmol/L (98-107) H 04/07/17 11:38 Carbon Dioxide 22 mmol/L (22-30) 04/07/17 11:38 Anion Gap 11 (10-20) 04/07/17 11:38 BUN 30 mg/dL (9-20) H 04/07/17 11:38 Creatinine 1.4 MG/DL (0.8-1.5) 04/07/17 11:38 Est GFR ( Amer) 58 04/07/17 11:38 Est GFR (Non-Af Amer) 48 04/07/17 11:38 POC Glucose (mg/dL) 248 mg/dL (65-110) H 04/08/17 11:20 Random Glucose 220 mg/dL (75-110) H 04/07/17 11:38 Lactic Acid 1.1 mmol/L (0.7-2.1) 04/06/17 03:34 Calcium 8.9 mg/dl (8.6-10.4) 04/07/17 11:38 Phosphorus 3.9 mg/dL (2.5-4.5) 04/03/17 19:38 Magnesium 1.9 mg/dL (1.6-2.3) 04/06/17 13:55 Iron 14 ug/dL (49-181) L 04/06/17 13:55 TIBC 149 ug/dL (250-450) L 04/06/17 13:55 % Saturation 9 (20-55) L 04/06/17 13:55 Ferritin 439.0 ng/mL 04/06/17 02:55 Total Bilirubin 0.3 mg/dL (0.2-1.3) 04/06/17 13:55 AST 56 U/L (17-59) 04/06/17 13:55 ALT 71 U/L (21-72) 04/06/17 13:55 Alkaline Phosphatase 198 U/L (38-126) H 04/06/17 13:55 Total Creatine Kinase 199 U/L (55-170) H 04/03/17 19:38 CK-MB (Mass) 2.08 ng/mL (0.0-3.38) 04/03/17 19:38 Troponin I 0.0220 ng/mL (0.00-0.120) 04/06/17 08:59 Troponin I, Quant 0.0190 ng/mL (0.00-0.120) 04/03/17 19:38 NT-Pro-B Natriuret Pep 1540 pg/mL (0-900) H 04/02/17 19:43 Total Protein 5.7 g/dL (6.3-8.3) L 04/06/17 13:55 Albumin 2.3 g/dL (3.5-5.0) L 04/06/17 13:55 Globulin 3.4 gm/dL (2.2-3.9) 04/06/17 13:55 Albumin/Globulin Ratio 0.7 (1.0-2.1) L 04/06/17 13:55 Vitamin B12 504 pg/mL (239-931) 04/06/17 02:55 TSH 3rd Generation 0.90 mIU/L (0.46-4.68) 04/06/17 02:55 Cortisol AM Sample 29.3 ug/dL (4.46-22.7) H 04/06/17 02:55 Urine Color Yellow (YELLOW) 04/02/17 19:43 Urine Clarity Clear (Clear) 04/02/17 19:43 Urine pH 5.0 (5.0-8.0) 04/02/17 19:43 Ur Specific [place] 1.012 (1.003-1.030) 04/02/17 19:43 Urine Protein Negative mg/dL (NEGATIVE) 04/02/17 19:43 Urine Glucose (UA) Normal mg/dL (Normal) 04/02/17 19:43 Urine Ketones Negative mg/dL (NEGATIVE) 04/02/17 19:43 Urine Blood 1+ (NEGATIVE) H 04/02/17 19:43 Urine Nitrate Negative (NEGATIVE) 04/02/17 19:43 Urine Bilirubin Negative (NEGATIVE) 04/02/17 19:43 Urine Urobilinogen Normal mg/dL (0.2-1.0) 04/02/17 19:43 Ur Leukocyte Esterase 1+ Gerda/uL (Negative) H 04/02/17 19:43 Urine WBC (Auto) 12 /hpf (0-5) H 04/02/17 19:43 Urine RBC (Auto) 7 /hpf (0-3) H 04/02/17 19:43 Ur Transition Epith Cell < 1 /hpf (0-3) 04/02/17 19:43 Urine Bacteria Occ (<OCC) H 04/02/17 19:43 Ur Random Creatinine 40.5 mg/dL 04/06/17 06:42 Ur Random Sodium 41 mmol/L 04/06/17 06:42 Stool Occult Blood Negative (NEGATIVE) 04/07/17 23:01 - Hospital Course Hospital Course: DNR\DNI FAMILY DOES NOT WANT invasive\ more imaging etc,wants keep him comfortable Discharge Exam - Head Exam Head Exam: ATRAUMATIC, NORMAL INSPECTION, NORMOCEPHALIC - Additional Findings Additional findings: Constitutional Appears: No Acute Distress, Confused, Chronically Ill - Head Exam Head Exam: ATRAUMATIC, NORMAL INSPECTION, NORMOCEPHALIC - Eye Exam Eye Exam: Normal appearance, PERRL. absent: Scleral icterus - ENT Exam ENT Exam: Mucous Membranes Dry - Respiratory Exam Respiratory Exam: Clear to Auscultation Bilateral, Rhonchi, NORMAL BREATHING PATTERN. absent: Wheezes, Respiratory Distress - Cardiovascular Exam Cardiovascular Exam: REGULAR RHYTHM, +S1, +S2, Systolic Murmur - GI/Abdominal Exam GI & Abdominal Exam: Normal Bowel Sounds, Soft, Tenderness. absent: Mass - Extremities Exam Extremities exam: Positive for: pedal edema, pedal pulses present Additional comments: 1 + - Neurological Exam Additional comments: altered ,confused unable to answer questions - Skin Skin Exam: Petechiae Additional comments: healing skin lesions on legs noted, buttock one. Discharge Plan - Follow Up Plan Condition: FAIR Disposition: HOME/ ROUTINE Instructions: Urinary Tract Infection in Women (DC), Urinary Tract Infection in Men (DC), Sepsis (DC), Sepsis (GEN), Dysuria (GEN) Additional Instructions: PLACE UNDER THE SERVICE OF DR. REYNOLDS AT [facility]---CALL UPON ARRIVAL FOR ADMITTING ORDERS. Referrals: Carolann Reynolds MD [Staff Provider] -
--- NOTE | 2017-04-15 20:29 | CARD ---
APPROVED REPORT EKG Measurement Heart [id number] <Conclusion> Sinus tachycardia with occasional premature ventricular complexes Nonspecific T wave abnormality Abnormal ECG
== END 2017-04-08 14:17 | DRG 872 ==
LOC: C.ER 18:06 → C.9E 20:35 → C.6T 22:48
PROVIDERS: ADMIT Internal Medicine; ATTEND Internal Medicine
DX: A41.9 Sepsis, unspecified organism (principal); I47.2 Ventricular tachycardia; N17.9 Acute kidney failure, unspecified; E87.0 Hyperosmolality and hypernatremia; L89.212 Pressure ulcer of right hip, stage 2; N39.0 Urinary tract infection, site not specified; F03.90 Unspecified dementia, unspecified severity, without behavioral disturbance, psychotic disturbance, mood disturbance, and anxiety; E11.22 Type 2 diabetes mellitus with diabetic chronic kidney disease; E11.622 Type 2 diabetes mellitus with other skin ulcer; E86.0 Dehydration; D64.9 Anemia, unspecified; M10.9 Gout, unspecified; Z66 Do not resuscitate; Z51.5 Encounter for palliative care; Z86.73 Personal history of transient ischemic attack (TIA), and cerebral infarction without residual deficits; Z99.3 Dependence on wheelchair; Z87.891 Personal history of nicotine dependence; Z68.22 Body mass index [BMI] 22.0-22.9, adult; I12.9 Hypertensive chronic kidney disease with stage 1 through stage 4 chronic kidney disease, or unspecified chronic kidney disease; N18.9 Chronic kidney disease, unspecified; N40.0 Benign prostatic hyperplasia without lower urinary tract symptoms; B95.62 Methicillin resistant Staphylococcus aureus infection as the cause of diseases classified elsewhere; R33.9 Retention of urine, unspecified; R32 Unspecified urinary incontinence; Z79.4 Long term (current) use of insulin; R23.8 Other skin changes